=== PATIENT | male | born 1960 | race Caucasian/White ===

== ENCOUNTER → 2019-10-30 08:16 | Outpatient (CLI) | payer OTHER, SELFPAY ==
--- NOTE | ~2019-10-30 | MMUS_ITS ---
EXAMINATION: MM diagnostic mammo unilat RT, US breast RT complete HISTORY: Right breast lump, pain TECHNIQUE: Digital MLO and cc views of right breast in comparison MLO view of left breast. CAD analys is was submitted and interpreted. High resolution right breast ultrasound was performed. COMPARISON: None BREAST PARENCHYMAL COMPOSITION: There are scattered areas of fibroglandular density. FINDINGS: MAMMOGRAPHIC FINDINGS: There is minimal left gynecomastia and mild right gynecomastia. No suspicious mass, architectural dis tortion, malignant calcification, skin thickening or retraction of either breast is evident. Benign-a ppearing lymph nodes are noted bilaterally. ULTRASOUND: There is no evidence of focal abnormal solid or cystic lesion or abnormal shadowing of the right [address]. There is mild subareolar fibroglandular tissue. IMPRESSION: 1. Bilateral gynecomastia 2. No mammographic evidence of malignancy Reviewed, dictated and finalized at location A. IMPRESSION: 1. Bilateral gynecomastia 2. No mammographic evidence of malignancy
== END ==
PROVIDERS: PCP Physician Assistant Medical; Visit Provider Physician Assistant Medical
DX: N64.4 Mastodynia (principal)
CPT/HCPCS: 76641; 77065

== ENCOUNTER 2019-11-07 03:09 | Outpatient (CLI) | payer OTHER, SELFPAY ==
[2019-11-07 20:04] LABS: SARS-CoV-2 RNA PCR Negative
== END 2019-11-07 03:10 | disposition home or self-care (01) ==
LOC: ANHCOVIDDT 03:09
PROVIDERS: PCP Physician Assistant Medical; Visit Provider Internal Medicine Cardiovascular Disease
DX: Z01.812 Encounter for preprocedural laboratory examination (principal); Z20.828 Contact with and (suspected) exposure to other viral communicable diseases
CPT/HCPCS: 87635; C9803; U0003

== ENCOUNTER 2019-11-09 06:54 | Outpatient (CLI) | payer OTHER, SELFPAY ==
[2019-11-08 14:49] VITALS: BMI 39.4
--- NOTE | 2019-11-09 07:03 | ECG_ITS ---
Measurements Intervals [place] Rate: 54 P: [place]: 0 QRS: -14 QRSD: 119 T: -11 QT: 445 QTc: 425 Interpretive Statements ATRIAL FIBRILLATION WITH SLOW VENTRICULAR RESPONSE INTRAVENTRICULAR CONDUCTION DELAY BORDERLINE ST-T WAVE ABNORMALITY- ANTEROLAT/INF LEADS ABNORMAL ECG Electronically Signed On 11-09-2019 7:46:22 CDT by Arnie Thomson D.O.
--- NOTE | 2019-11-09 07:20 | SUR.PREOP ---
ARRIVES TO [facility] W/ AT SIDE FOR SCHEDULED CV W/ DR. RICHARD. A&0X4, STEADY GAIT, DENIES PAIN OR SOB. ORIENTED TO ROOM, PLAN OF CARE, PROCEDURE. QUESTIONS ANSWERED. PRE PROCEDURE EKG SHOWS AFIB 50'S. IV STARTED, LABS SENT, VS OBTAINED, SKIN PREPPED, CONSENT SIGNED. WILL CONTINUE TO MONITOR.
[2019-11-09 07:45] VITALS: BP 148/107; PULSE 59; RESP 14; TEMP 36.1; O2SAT 98
[2019-11-09 07:48] LABS: Anion Gap 5 mmol/L (8-16); Blood Urea Nitrogen 15 mg/dL (9-20); Calcium 9.1 mg/dL (8.4-10.2); Carbon Dioxide 29 mmol/L (22-30); Chloride 106 mmol/L (98-107); Estimated CRCL calculation 112 ml/min; Estimated Glomerular Filt Rate > 60; Glucose 157 mg/dL (75-110); Magnesium 1.9 mg/dL (1.6-2.3); Potassium 4.5 mmol/L (3.4-5.0); Sodium 140 mmol/L (137-145)
--- NOTE | 2019-11-09 08:35 | SUR.PREOP ---
DR. RICHARD HERE FOR CV. PT. IS READY IN BED AND LABS ARE RESULTED. DR. RICHARD VIEWED OFFICE NOTE, CONSENT AND PRE PROCEDURE EKG. UPON REVIEW OF EKG, DR. RICHARD NOTES EKG CHANGES PRESENT. MONITOR IS UPPER 40'S TO LOW 50'S AFIB. DECISION MADE BY DR. RICHARD TO CANCEL CARDIOVERSION TODAY; PT. NEEDS TO HAVE CARDIAC CATH FIRST.
--- NOTE | 2019-11-09 08:45 | SUR.PREOP ---
DR. RICHARD TO BEDSIDE TO SPEAK W/ PT AND HIS RE: EKG FINDINGS AND NEED TO HAVE CARDIAC CATH DONE TO EVALUATE HEART PRIOR TO HAVING CARDIOVERSION DONE AND THAT CARDIOVERSION IS CANCELLED TODAY. PT. AND VOICE UNDERSTANDING. DR. RICHARD ALSO DISCUSSED MED CHANGES HE WANTS MADE RE: LOW AFIB HR. DR. RICHARD MADE CALL TO OFFICE TO GET PT. SCHEDULED FOR CARDIAC CATH .
--- NOTE | 2019-11-09 09:03 | PM.PNCARD ---
Subjective Date/time seen: 11/09/19 09:03 Patient presents here for cardioversion of atrial fibrillation. On review of his EKG shows he has anterior ischemia. his heart rate 50 beats per minute. given that he has dyspnea on exertion and ischemia on the EKG we will arrange for cardiac catheterization prior to cardioversion. Objective Data Vital Signs Vital Signs: Vital Signs - 24 hr 11/09/19 07:45 Temperature 36.1 C L Pulse Rate 59 L Respiratory Rate 14 Blood Pressure 148/107 H Pulse Oximetry 98 Meds/Results Medications: Active Medications Generic Name Dose Route Start Last Admin Trade Name Freq PRN Reason Stop Dose Admin Sodium Chloride 1,000 mls @ 30 mls/hr 11/09/19 07:00 Normal Saline Iv IV CONT .Q24H MAGDALENO Labs Labs: Laboratory Results - last 24 hr 11/09/19 07:29 Sodium 140 Potassium 4.5 Chloride 106 Carbon Dioxide 29 Anion Gap 5 L BUN 15 Creatinine 0.80 Estim Creat Clear Calc 112 Estimated GFR > 60 Glucose 157 H Calcium 9.1 Magnesium 1.9
--- NOTE | 2019-11-09 09:04 | WPDHPUPDATE1 ---
History and Physical Update Update Date/Time: 11/09/19 09:04 History and Physical has been reviewed, including an updated exam of the patient. There are NO changes in the patient's condition. Risks, benefits, and alternatives have been discussed and questions answered. Patient agrees to proceed with procedure.
--- NOTE | 2019-11-09 09:05 | SUR.PREOP ---
IV SITE DISCONTINUED AND PT. DRESSING FOR DISCHARGE HOME.
--- NOTE | 2019-11-09 09:10 | SUR.PREOP ---
CALL RECEIVED FROM NURSE LAUREN RN AT [facility]. APPOINTMENT TIME AND DATE FOR CARDIAC CATH W/ DR. RICHARD RECEIVED.
--- NOTE | 2019-11-09 09:30 | SUR.PREOP ---
REVIEWED DISCHARGE INSTRUCTIONS W/ PT AND . INSTRUCTED ON NEW DATE AND TIME FOR COVID TEST, CARDIAC CATH, PREPARATION FOR TESTS AND NEW MED ORDERS. QUESTIONS ANSWERED, AND VOICED UNDERSTANDING OF ALL. DISCHARGED HOME AT 0934, AMBULATORY, WITH ALL PERSONAL BELONGINGS AND DISCHARGE PACKET. VOICES NO C/O. NO DISTRESS NOTED.
== END 2019-11-09 09:34 | disposition home or self-care (01) ==
LOC: ANHCARD 06:55 → ANHCPCTRAN 07:43 → ANHCATHLAB 07:44
PROVIDERS: PCP Physician Assistant Medical; Visit Provider Internal Medicine Cardiovascular Disease
PROC: 5A2204Z Restoration of Cardiac Rhythm, Single (ICD-10-PCS; principal; 2019-11-09 08:30)
DX: Z01.810 Encounter for preprocedural cardiovascular examination (principal); I45.9 Conduction disorder, unspecified
CPT/HCPCS: 36415; 80048; 83735; 93005; 99213; G0463; J2250; J3010; J7030; J7040

== ENCOUNTER 2019-11-14 01:36 | Outpatient (CLI) | payer OTHER, SELFPAY ==
[2019-11-14 19:24] LABS: SARS-CoV-2 RNA PCR Negative
== END 2019-11-14 01:37 | disposition home or self-care (01) ==
LOC: ANHCOVIDDT 01:36
PROVIDERS: PCP Physician Assistant Medical; Visit Provider Internal Medicine Cardiovascular Disease
DX: Z01.812 Encounter for preprocedural laboratory examination (principal); Z20.828 Contact with and (suspected) exposure to other viral communicable diseases
CPT/HCPCS: 87635; C9803; U0003

== ENCOUNTER 2019-11-16 05:17 | Day surgery (SDC) | payer OTHER, SELFPAY ==
[2019-11-16] VITALS (21 sets, daily range): BP systolic 115–152; BP diastolic 73–106; PULSE 56–77; RESP 12–22; TEMP 36.3–36.6; O2SAT 92–100; BMI 39.3
--- NOTE | 2019-11-16 07:00 | SUR.PREOP ---
ARRIVES TO [facility] W/ AT SIDE FOR SCHEDULED LHC W/ DR. RICHARD. STEADY GAIT, ALERT AND ORIENTED X 4. DENIES PAIN OR SOB ON ARRIVAL. ORIENTED TO ROOM, PLAN OF CARE, PROCEDURE. QUESTIONS ANSWERED. IV STARTED, LABS SENT, VS OBTAINED, CONSENT SIGNED, SKIN PREP COMPLETED, PULSES MARKED. STATES LAST DOSE OF XARELTO WAS TAKEN WEDNESDAY, 2019. MONITOR AFIB. WILL MONITOR.
[2019-11-16 07:24] LABS: Basophils Percent Auto 0.6 % (0.2-1.2); Eosinophils Absolute Auto 0.3 K/mm3 (0-0.3); Eosinophils Percent Auto 4.1 % (0-4.4); Hematocrit 47.5 % (42.0-52.0); Hemoglobin 15.4 g/dL (14.0-18.0); Immature Granulocyte Absolute 0.03 K/mm3 (0.00-0.031); Immature Granulocyte Percent A 0.4 % (0-0.5); Lymphocytes Absolute Auto 1.95 K/mm3 (0.9-3.2); Lymphocytes Percent Auto 28.4 % (18.3-44.2); Mean Corpuscular HGB Conc 32.4 g/dl (32-36); Mean Corpuscular Hemoglobin 30.7 pg (26-34); Mean Corpuscular Volume 94.6 fl (80-100); Mean Platelet Volume 9.5 fl (7.4-10.4); Monocytes Absolute Auto 0.6 K/mm3 (0.1-0.6); Monocytes Percent Auto 9.3 % (2.6-8.5); Neutrophils Absolute Auto 3.9 K/mm3 (1.3-6.7); Neutrophils Percent Auto 57.2 % (45.5-73.1); Platelet Count Result 167 k/mm3 (150-375); Red Blood Count 5.02 M/mm3 (4.6-6.20); Red Cell Distribution Width 14.3 % (11.5-14.5); White Blood Count 6.9 K/mm3 (4.5-10.0)
[2019-11-16 07:34] LABS: INR 0.9; Prothrombin Time 12.3 Seconds (11.1-14.7)
[2019-11-16 07:36] LABS: Anion Gap 6 mmol/L (8-16); Blood Urea Nitrogen 16 mg/dL (9-20); Calcium 8.8 mg/dL (8.4-10.2); Carbon Dioxide 29 mmol/L (22-30); Chloride 107 mmol/L (98-107); Estimated Glomerular Filt Rate > 60; Glucose 147 mg/dL (75-110); Potassium 4.4 mmol/L (3.4-5.0); Sodium 142 mmol/L (137-145)
--- NOTE | 2019-11-16 08:38 | WPDMODSED ---
Moderate Sedation Note-Pt Data Patient Data Allergies Allergy/AdvReac Type Severity Reaction Status Date / Time cat dander Allergy Unknown Unknown Verified 11/16/19 07:37 No Known Drug Allergies Allergy Unknown unknown Verified 11/16/19 07:37 Home Medications Medication Instructions Recorded Confirmed Type rivaroxaban 20 mg tablet 20 mg PO DAILY 02/02/19 11/16/19 History rosuvastatin 20 mg sprinkle capsule 20 mg PO DAILY 02/02/19 11/16/19 History esomeprazole magnesium 40 mg 40 mg PO DAILY #90 cap 04/03/19 11/16/19 Rx capsule,delayed release duloxetine 30 mg capsule,delayed 30 mg PO DAILY #30 cap 10/18/19 11/16/19 Rx release sildenafil 100 mg tablet 100 mg PO DAILY PRN 10/18/19 11/16/19 History clopidogrel 75 mg PO DAILY 11/08/19 11/16/19 History perindopril erbumine 4 mg PO DAILY 11/08/19 11/16/19 History amiodarone 200 mg PO DAILY #30 tablet 11/09/19 11/16/19 Rx metoprolol tartrate 12.5 mg PO Q12H #30 tablet 11/09/19 11/16/19 Rx Current Medications: Active Medications Sodium Chloride (Normal Saline Iv) 500 mls @ 100 mls/hr IV CONT .Q5H MAGDALENO Sedation/Anesthesia: No previous sedation/anesthesia problems (including family history). [facility] Past Medical History Medical History Afib Arthritis Bleeding nose CAD (coronary artery disease) 3 X 16 Taxus Liberte to mid LAD 2007 Current use of skilled nursing anticoagulation Gastric reflux High cholesterol Hypertension Left hip impingement syndrome Sleep apnea Vertigo Vision abnormalities Surgical History Surgical History H/O dilation of urethra H/O knee surgery Patella fracture. Small piece removed H/O umbilical hernia repair X2 History of cystoscopy 2019 S/P right rotator cuff repair 1978 Family History Family History Father Hypertension Family history of heart disease in male family member before age 55 Grandparent Family history of lung cancer Mother Cancer Cerebrovascular accident Social History Social History Smoking status: Never smoker Alcohol intake: current Substance use: never Additional living arrangements comments: Spouse Spiritual care concerns: No Agree to blood products: Yes Mod Sed Physical Exam Physical Exam Pre Procedural Exam: Normal: Appearance, Eyes, Ears, Nose, Neck, Throat, Airway, Lungs, Heart Size, Heart Rate, Heart Rhythm, Neuro Exam, Abdomen, Liver, Kidneys, Spleen, Breasts, Genitalia, Extremities and Skin Hours since solid foods: 8 Hours since liquid intake: 8 Internal Medicine - PN: Obj Da Vital Signs Vital Signs: Vital Signs - 24 hr 11/16/19 07:20 Temperature 36.3 C L Pulse Rate 65 Respiratory Rate 22 H Blood Pressure 152/99 H Pulse Oximetry 98 Meds/Results Medications: Active Medications Generic Name Dose Route Start Last Admin Trade Name Freq PRN Reason Stop Dose Admin Sodium Chloride 500 mls @ 100 mls/hr 11/16/19 06:00 Normal Saline Iv IV CONT .Q5H MAGDALENO Labs CBC & Chem 7: 11/16/19 07:18 11/16/19 07:18 Labs: Laboratory Results - last 24 hr 11/16/19 11/16/19 11/16/19 07:18 07:18 07:18 WBC 6.9 RBC 5.02 Hgb 15.4 Hct 47.5 MCV 94.6 MCH 30.7 MCHC 32.4 RDW 14.3 Plt Count 167 MPV 9.5 Immature Gran % (Auto) 0.4 Neut % (Auto) 57.2 Lymph % (Auto) 28.4 [place] % (Auto) 9.3 H Eos % (Auto) 4.1 Baso % (Auto) 0.6 Lymph # (Auto) 1.95 [place] # (Auto) 0.6 Eos # (Auto) 0.3 Baso # (Auto) 0.0 Abs Immat Gran (auto) 0.03 Absolute Neuts (auto) 3.9 Absolute Nucleated RBC 0.0 Nucleated RBC % 0.0 PT 12.3 INR 0.9 Sodium 142 Potassium 4.4 Chloride 107 Carbon Dioxide 29 Anion Gap 6 L BUN 16 Creatinine 0.70 Estim Creat Clear C
--- NOTE | 2019-11-16 08:38 | WPDHPUPDATE1 ---
History and Physical Update Update Date/Time: 11/16/19 08:38 History and Physical has been reviewed, including an updated exam of the patient. There are NO changes in the patient's condition. Risks, benefits, and alternatives have been discussed and questions answered. Patient agrees to proceed with procedure.
--- NOTE | 2019-11-16 08:38 | WPDCARDPROC ---
Cardiac Cath Procedure Note Date of procedure:: 11/16/19 Performing physician:: Christina Velasquez MD date of service 11/16/2019 Procedure Procedure performed:: 1-Moderate sedation that started at and ended at using 7 mg of Versed and 150mcg fentanyl. The registered nurse was maryse finley. 2-Selective left and right coronary angiogram. 3-Left heart catheterization with measurement of LVEDP and measurement of gradient across aortic valve. 3- LV angiogram was done as well. 4-IFR of mid LAD InStent restenosis. 5- Deployment of drug-eluting stent 3 x 18 Xience inside the old stent and proximal to. Under 14 atmospheres for 25 seconds. The stent balloon was used to post dilate the overlap segment and the 14 MERRY for 15 seconds. 6-Right common femoral arterial angiogram. 7-Deployment of 6 Sudan[place] Angio-Seal. Sedation/Medication given:: Moderate sedation. Access site:: Right common femoral artery. Estimated blood loss:: 10cc Procedure note:: After informed consent patient was brought in to manufacturing laborer with the was draped and prepped in usual manner. Moderate sedation was given and the right groin was infiltrated using 1% lidocaine. Five Sudanese sheath was obtained using micropuncture needle and the modified Seldinger technique. Selective left coronary angiogram was done using JL4 catheter with the tip of the catheter placed in the left main coronary artery. Selective right coronary angiogram was done using JR4 catheter with the tip of the catheter placed to the right coronary artery. After that 5 Sudanese pigtail catheter was advanced across the aortic valve into the left ventricle with measurement of LVEDP and measurement of gradient across aortic valve. Right common femoral arterial angiogram was done. LV angiogram was done as well. after that exchanged the 5 Sudanese sheath to 6 Sudanese sheath over a wire. The guide catheter that we used to engage the LAD was JL5. Other guides used without success were CLS 3.5, CLS 4 and JL 4. after that the pressure wire was zeroed outside the body and then advanced to outside of the guide catheter and normalization of pressures done. Then the wire was advanced to the distal LAD a measurement of IFR was done.. Subsequently we took a balloon 3 x 15 to measure the length of the stent. And then deployment and direct stenting using 3 x 18 Xience stent. The stent balloon was used to post dilate the overlap segment under 14 atmospheres for 15 seconds Findings:: 1- left coronary artery is a large artery that divides into large LAD, large circumflex artery. Left main is Free of disease. 2- left anterior descending artery is a large artery that runs and wraps around the apex. There is a stent at the junction of the mid to the distal segment and at the proximal and mid segment of the stent and proximal to the stent there is about 60-70% stenosis. Large diagonal branch with minimal irregularities. 3- leftcircumflex artery is a large artery Minimal irregularities. Distally large obtuse marginal that looks unremarkable. 4- right coronary artery is Large artery and dominant with minimal irregularities. 5- LVEDP was 15 mm Hg and no gradient across aortic valve. 5- LV angiogram shows normal ejection fraction 65%. 6- opening arterial pressure was 130/80and closing pressure was 120/80. 7- right femoral artery angiogram shows no significant disease in the right common femoral artery. 8- IFR of LAD was 0.88 and 1 reading was 0.9. Given the abnormal EKG that shows ischemia and given the borderline readings onIFR we decided to stent the LAD. Conclusion:: Successful stenting of InStent restenosis of the LAD into the [place] LAD proximally. Assessment and Plan Additional Plan 1- Continue aspirin and Plavix. 2- continue Xarelto. 3- after 1 month from now we will attempt cardioversion. 4- Aggressive risk factor modification for CAD.
--- NOTE | 2019-11-16 09:55 | ECG_ITS ---
Measurements Intervals [place] Rate: 60 P: [place]: 0 QRS: -21 QRSD: 138 T: 10 QT: 454 QTc: 457 Interpretive Statements ATRIAL FIBRILLATION INTRAVENTRICULAR CONDUCTION DELAY ST-T WAVE ABNORMALITY IN ANTERIOR LEADS- CONSIDER ISCHEMIA BASELINE ARTIFACT- II, III ABNORMAL ECG Electronically Signed On 11-16-2019 10:37:54 CDT by Arnie Thomson D.O.
--- NOTE | 2019-11-16 11:09 | SUR.PHASEII ---
1100-pt moved to PCS charting.
[2019-11-16] MEDS: ROSUVASTATIN 10 MG TABLET 20 MG PO (20:20)
[2019-11-16] MEDS: PANTOPRAZOLE 40 MG TABLET PO (20:20)
[2019-11-16] MEDS: METOPROLOL TARTRATE 12.5 MG TABLET PO (20:20)
[2019-11-16] MEDS: DULoxetine HCL 30 MG CAPSULE.DR PO (20:21)
[2019-11-17] VITALS (10 sets, daily range): BP systolic 145–146; BP diastolic 84–109; PULSE 59–83; RESP 16–18; TEMP 36.4–37.3; O2SAT 97–99
[2019-11-17 05:27] LABS: Anion Gap 7 mmol/L (8-16); Blood Urea Nitrogen 11 mg/dL (9-20); Calcium 8.7 mg/dL (8.4-10.2); Carbon Dioxide 31 mmol/L (22-30); Chloride 101 mmol/L (98-107); Estimated CRCL calculation 112 ml/min; Estimated Glomerular Filt Rate > 60; Glucose 144 mg/dL (75-110); Potassium 4.2 mmol/L (3.4-5.0); Sodium 139 mmol/L (137-145)
[2019-11-17] MEDS: AMIODARONE HCL 200 MG TABLET PO (10:03)
[2019-11-17] MEDS: METOPROLOL TARTRATE 12.5 MG TABLET PO (10:03)
[2019-11-17] MEDS: CLOPIDOGREL BISULFATE 75 MG TABLET PO (10:04)
[2019-11-17] MEDS: lisinopriL 10 MG TABLET PO (10:04)
--- NOTE | 2019-11-17 11:05 | PM.DS ---
DS: Admitting Diagnosis Admitting Diagnosis Admitting Diagnosis: Abnormal EKG DS: Discharge Diagnosis Discharge Diagnosis (1) CAD (coronary artery disease): Code(s): I25.10 - Atherosclerotic heart disease of [place] coronary artery without angina pectoris Status: Acute Assessment and Plan: Cardiac catheterization 11/16/2019: 1- left coronary artery is a large artery that divides into large LAD, large circumflex artery. Left main is Free of disease. 2- left anterior descending artery is a large artery that runs and wraps around the apex. There is a stent at the junction of the mid to the distal segment and at the proximal and mid segment of the stent and proximal to the stent there is about 60-70% stenosis. Large diagonal branch with minimal irregularities. 3- left circumflex artery is a large artery Minimal irregularities. Distally large obtuse marginal that looks unremarkable. 4- right coronary artery is Large artery and dominant with minimal irregularities. 5- LVEDP was 15 mm Hg and no gradient across aortic valve. 5- LV angiogram shows normal ejection fraction 65%. 6- opening arterial pressure was 130/80and closing pressure was 120/80. 7- right femoral artery angiogram shows no significant disease in the right common femoral artery. 8- IFR of LAD was 0.88 and 1 reading was 0.9. Given the abnormal EKG that shows ischemia and given the borderline readings onIFR we decided to stent the LAD. Proceeded on to successful stenting of InStent restenosis of the LAD into the [place] LAD proximally. No chest discomfort or shortness of breath. overnight. Right groin site without swelling or bleeding. No femoral bruit. Distal pulses intact. DS: Summary Hospital Course Reason for hospitalization: Abnormal EKG for cardiac catheterization Hospital Course: 59-year-old gentleman that was seen for cardioversion 11/09/2019. Preprocedure EKG revealed ischemia in the anterior leads. He was scheduled for cardiac catheterization which was performed by Dr Velasquez on 11/16/2019. He had in stent stenosis of the previously placed LAD stent. See cardiac catheterization report above. He was monitored overnight. He had no complaints of chest discomfort or shortness of breath. He states he feels amazingly better. Right groin site was without swelling or bleeding. No femoral bruit. Distal pulses intact. There were no arrhythmias on the monitor. He will be continued on aspirin 81 mg for at least 1 month in addition to clopidogrel 75 mg daily. Xarelto will restart on Wednesday and he is scheduled for cardioversion on December 21, [address] Velasquez. He was discharged home in stable and pain-free condition. Status at Discharge Functional status at discharge: independent ambulation Overall status at discharge: patient is back to baseline Time Spent with Patient Time attestation: Total time spent providing and/or coordinating discharge services: 20 minutes in the room to discuss medications, diet, activity, restarting anticoagulation with Xarelto, scheduling for cardioversion in 1 month after restarting Xarelto and answering any questions. 10 minutes to do discharge order. 10 minutes to do discharge summary. Total time spent on discharge: 40 minutes. Time spent: Greater than 30 minutes Exam Const: General: cooperative, comfortable, no acute distress, alert and awake Nutritional Appearance: obese Orientation/consciousness: patient oriented x3 Limitations: no limitations HENMT: Ears: hearing grossly normal bilaterally General nose exam: Normal nares present Mouth: Yes moist mucous membranes Eyes: General: appearance normal, both eyes and all related structures Neck: Neck: full ROM and no JVD Resp: Effort & Inspection: normal respiratory effort and able to speak in complete sentences Auscultation: clear to auscultation bilaterally Cardio: Rate: re
[2019-11-17] MEDS: ASPIRIN 81 MG ENTERIC TABLET PO (11:52)
== END 2019-11-17 12:55 | disposition home or self-care (01) ==
LOC: ANHCATHLAB 08:35 → ANHCPC 11:02 → ANHIMU 19:14
PROVIDERS: PCP Family Medicine; Visit Provider Internal Medicine Cardiovascular Disease
PROC: 4A023N7 Measurement of Cardiac Sampling and Pressure, Left Heart, Percutaneous Approach (ICD-10-PCS; CPT 93452; principal; 2019-11-16 08:30)
PROC: 4A033BC Measurement of Arterial Pressure, Coronary, Percutaneous Approach (ICD-10-PCS; CPT 93571; 2019-11-16 08:30)
DX: I25.118 Atherosclerotic heart disease of native coronary artery with other forms of angina pectoris (principal); T82.855A Stenosis of coronary artery stent, initial encounter; R94.31 Abnormal electrocardiogram [ECG] [EKG]; I73.9 Peripheral vascular disease, unspecified; I10 Essential (primary) hypertension; I48.0 Paroxysmal atrial fibrillation; R06.09 Other forms of dyspnea; I25.2 Old myocardial infarction; G47.33 Obstructive sleep apnea (adult) (pediatric); K21.9 Gastro-esophageal reflux disease without esophagitis; F12.90 Cannabis use, unspecified, uncomplicated; E78.2 Mixed hyperlipidemia; Z95.5 Presence of coronary angioplasty implant and graft; Z99.89 Dependence on other enabling machines and devices; Z79.01 Long term (current) use of anticoagulants; Z79.02 Long term (current) use of antithrombotics/antiplatelets; Y83.8 Other surgical procedures as the cause of abnormal reaction of the patient, or of later complication, without mention of misadventure at the time of the procedure
CPT/HCPCS: 36415; 80048; 83735; 85025; 85610; 87635; 93005; 93458; 93571; 99213; A9270; C1725; C1760; C1769; C1874; C1887; C1894; C9600; C9803; G0269; G0463; J0583; J1644; J2250; J3010; J7030; J7040; U0003

== ENCOUNTER 2019-12-12 08:26 | Outpatient (CLI) | payer OTHER, SELFPAY ==
[2019-12-12 08:50] LABS: Uric Acid 4.6 mg/dL (3.5-8.5)
== END 2019-12-12 08:27 | disposition home or self-care (01) ==
PROVIDERS: PCP Family Medicine; Visit Provider Physician Assistant Medical
DX: M10.00 Idiopathic gout, unspecified site (principal)
CPT/HCPCS: 36415; 84550

== ENCOUNTER 2019-12-19 01:20 | Outpatient (CLI) | payer OTHER, SELFPAY ==
[2019-12-19 20:51] LABS: SARS-CoV-2 RNA PCR Negative
== END 2019-12-19 01:21 | disposition home or self-care (01) ==
LOC: ANHCOVIDDT 01:21
PROVIDERS: PCP Family Medicine; Visit Provider Internal Medicine Cardiovascular Disease
DX: Z01.812 Encounter for preprocedural laboratory examination (principal); Z20.828 Contact with and (suspected) exposure to other viral communicable diseases
CPT/HCPCS: 87635; C9803; U0003

== ENCOUNTER 2019-12-21 05:18 | Day surgery (SDC) | payer OTHER, SELFPAY ==
[2019-12-21] VITALS (12 sets, daily range): BP systolic 121–142; BP diastolic 89–100; PULSE 55–74; RESP 14–25; TEMP 36.1; O2SAT 96–100
--- NOTE | 2019-12-21 07:00 | ECG_ITS ---
Measurements Intervals [place] Rate: 64 P: [place]: 0 QRS: -24 QRSD: 125 T: -9 QT: 399 QTc: 413 Interpretive Statements ATRIAL FIBRILLATION INTRAVENTRICULAR CONDUCTION DELAY BORDERLINE ST-T WAVE ABNORMALITY- ANT/INF LEADS BASELINE ARTIFACT- I, II, AVR ABNORMAL ECG Electronically Signed On 12-21-2019 7:12:00 PUBLICATION DESIGNER by Arnie Thomson D.O.
[2019-12-21 07:34] LABS: Anion Gap 6 mmol/L (8-16); Blood Urea Nitrogen 19 mg/dL (9-20); Calcium 8.7 mg/dL (8.4-10.2); Carbon Dioxide 29 mmol/L (22-30); Chloride 105 mmol/L (98-107); Estimated Glomerular Filt Rate > 60; Glucose 168 mg/dL (75-110); Potassium 4.4 mmol/L (3.4-5.0); Sodium 140 mmol/L (137-145)
--- NOTE | 2019-12-21 07:34 | SUR.PREOP ---
0700-PT PRESENTS TO THE [facility] FOR A CV. NO DISTRESS NOTED. EKG PERFORMED AND FOUND TO BE IN A-FIB. PIV STARTED AND LABS OBTAINED AND SENT PER ORDER. QUESTIONS ANSWERED AND VERBALIZED UNDERSTANDING. CONSENT OBTAINED. WILL CONTINUE TO MONITOR.
--- NOTE | 2019-12-21 08:49 | WPDHPUPDATE1 ---
History and Physical Update Update Date/Time: 12/21/19 08:49 Subjective: Remains in atrial fibrillation No chest pain or shortness breath Objective: Irregular irregular rhythm Assessment: Atrial fibrillation plan:Elective cardioversion History and Physical has been reviewed, including an updated exam of the patient. There are NO changes in the patient's condition. Risks, benefits, and alternatives have been discussed and questions answered. Patient agrees to proceed with procedure.
--- NOTE | 2019-12-21 08:51 | WPDMODSED ---
Moderate Sedation Note-Pt Data Patient Data Diagnosis: Atrial fibrillation Present Complaint: atrial fibrillation Procedure to be performed/Plan: elective cardioversion Moderate sedation Allergies Allergy/AdvReac Type Severity Reaction Status Date / Time cat dander Allergy Unknown Unknown Verified 11/20/19 08:24 No Known Drug Allergies Allergy Unknown unknown Verified 11/20/19 08:24 Home Medications Medication Instructions Recorded Confirmed Type rivaroxaban 20 mg tablet 20 mg PO DAILY 02/02/19 12/20/19 History rosuvastatin 20 mg sprinkle capsule 20 mg PO DAILY 02/02/19 12/20/19 History esomeprazole magnesium 40 mg 40 mg PO DAILY #90 cap 04/03/19 12/20/19 Rx capsule,delayed release clopidogrel 75 mg PO DAILY 11/08/19 12/20/19 History perindopril erbumine 4 mg PO DAILY 11/08/19 12/20/19 History amiodarone 200 mg PO DAILY #30 tablet 11/09/19 12/20/19 Rx metoprolol tartrate 12.5 mg PO Q12H #30 tablet 11/09/19 12/20/19 Rx aspirin 81 mg PO QAM #30 tablet 11/17/19 12/20/19 Rx nitroglycerin 0.4 mg SUBLINGUAL DIRECTED PRN 11/17/19 12/20/19 Rx #25 tablet duloxetine 60 mg capsule,delayed 60 mg PO DAILY #90 cap 11/20/19 12/20/19 Rx release Current Medications: Active Medications Sodium Chloride (Normal Saline Iv) 1,000 mls @ 30 mls/hr IV CONT .Q24H MAGDALENO Sedation/Anesthesia: No previous sedation/anesthesia problems (including family history). [facility] Past Medical History Medical History Afib Arthritis Bleeding nose BMI 39.0-39.9,adult CAD (coronary artery disease) 3 X 16 Taxus Liberte to mid LAD 2007 Current use of fdc anticoagulation Gastric reflux High cholesterol Hypertension Left hip impingement syndrome Sleep apnea Vertigo Vision abnormalities Surgical History Surgical History H/O dilation of urethra H/O knee surgery Patella fracture. Small piece removed H/O umbilical hernia repair X2 History of cystoscopy 2019 S/P right rotator cuff repair 1979 Family History Family History Father Hypertension Family history of heart disease in male family member before age 55 Grandparent Family history of lung cancer Mother Cancer Cerebrovascular accident Social History Social History Smoking status: Never smoker Alcohol intake: current Drinks per week: 2 Substance use: never Substance use type: does not use Additional living arrangements comments: Spouse Gender identity (if verbalized by the patient): Male Spiritual care concerns: No Agree to blood products: Yes Mod Sed Physical Exam Physical Exam Pre Procedural Exam: Normal: Appearance, Eyes, Ears, Nose, Neck, Throat, Airway, Lungs, Heart Size, Heart Rate, Neuro Exam, Extremities and Skin and Variation: Heart Rhythm ( irregular irregular) Hours since solid foods: 12 Hours since liquid intake: 12 Internal Medicine - PN: Obj Da Vital Signs Vital Signs: Vital Signs - 24 hr 12/21/19 07:30 12/21/19 08:45 12/21/19 08:50 Temperature 36.1 C L Pulse Rate 67 74 67 Respiratory Rate 15 25 H 16 Blood Pressure 121/92 H 142/91 H 134/97 H Pulse Oximetry 98 100 99 Meds/Results Medications: Active Medications Generic Name Dose Route Start Last Admin Trade Name Freq PRN Reason Stop Dose Admin Sodium Chloride 1,000 mls @ 30 mls/hr 12/21/19 06:00 Normal Saline Iv IV CONT .Q24H MAGDALENO Labs CBC & Chem 7: 12/21/19 07:17 12/21/19 07:17 Labs: Laboratory Results - last 24 hr 12/21/19 07:17 Sodium 140 Potassium 4.4 Chloride 105 Carbon Dioxide 29 Anion Gap 6 L BUN 19 Creatinine 0.80 Estim Creat Clear Calc Not Reportable Estimated GFR > 60 Glucose 168 H Calcium 8.7 Magnesium 2.0 ASA Classification/Sedation ASA Cl
--- NOTE | 2019-12-21 09:12 | WPDCARDVER ---
Cardioversion Cardioversion Date of procedure: 12/21/19 Procedure: 1. Electrical cardioversion 2. Moderate sedation Pre-op diagnosis: atrial fibrillation Post-op diagnosis: same Indications: atrial fibrillation Description of procedure: after discussing the risks, benefits alternatives of the procedure patient agreeable via verbal and written informed consent. Risks discussed included shocking into more problematic heart rhythm, stroke, need for surgery, , skin irritation or burn. Telemetry monitoring was established, pulse oxygenation was established and serial blood pressure assessments were taken. The previously placed anterior and posterior defibrillator pads were utilized after adequate sedation in the attempts of trying to restore sinus rhythm. Procedure start time 8:54 a.m. Procedure stop time 9:09 a.m. Medications were administered and patient was monitored by Marin Glez RN Complications: None Blood loss: None Medications given a total 4 mg of Versed and 50 mg of fentanyl given in divided dosages Three attempts to restore sinus rhythm were made. Each using 200 joules of synchronized biphasic energy. This was unsuccessful at restoring sinus rhythm. Sedation: As above Findings: as above Conclusion: 1. Unsuccessful attempts at restoring sinus rhythm x3 using 200 joules of synchronized biphasic energy each time. 2. Moderate sedation Plan will be to continue his current drug regimen without change. He will follow up with Dr. Velasquez for further adjustments and recommendation
--- NOTE | 2019-12-21 12:07 | SUR.PHASEII ---
1100-pt given d/c orders and instructions. Questions answered and verbalized understanding. AOx4. PIV removed intact. Taken via wheelchair to waiting vehicle. No evidence of distress noted or verbalized at time of departure.
== END 2019-12-21 11:00 | disposition home or self-care (01) ==
PROVIDERS: PCP Family Medicine; Visit Provider Internal Medicine Cardiovascular Disease
PROC: 5A2204Z Restoration of Cardiac Rhythm, Single (ICD-10-PCS; principal; 2019-12-21 08:30)
DX: I48.91 Unspecified atrial fibrillation (principal); I25.10 Atherosclerotic heart disease of native coronary artery without angina pectoris; I10 Essential (primary) hypertension; E78.00 Pure hypercholesterolemia, unspecified; G47.30 Sleep apnea, unspecified; K21.9 Gastro-esophageal reflux disease without esophagitis; Z95.5 Presence of coronary angioplasty implant and graft; Z79.01 Long term (current) use of anticoagulants; Z79.02 Long term (current) use of antithrombotics/antiplatelets; Z79.82 Long term (current) use of aspirin
CPT/HCPCS: 36415; 80048; 83735; 92960; 93005; J2250; J3010; J7040

== ENCOUNTER 2020-02-29 11:13 | Outpatient (CLI) | payer OTHER, SELFPAY | END 2020-02-29 11:14 | disposition home or self-care (01) | PROVIDERS: PCP Family Medicine; Visit Provider Nurse Practitioner Family | DX: M25.571 Pain in right ankle and joints of right foot (principal) | CPT/HCPCS: 36415; 84550 ==

== ENCOUNTER 2020-04-16 22:03 | Emergency (ER) | payer OTHER, SELFPAY ==
--- NOTE | ~2020-04-16 | CT_ITS ---
EXAMINATION: CT abdomen pelvis w con DATE: 04/16/2020 23:55 INDICATION: Groin hematoma. TECHNIQUE: Computed tomography (CT) of the abdomen and pelvis was performed with 100 mL Omnipaque 350 intravenous contrast. Automated exposure control and iterative reconstruction technique were employe d. The dose-length product was 1596.37 mGy-cm. COMPARISON: CT abdomen and pelvis 09/27/2018 FINDINGS: The visualized portions of the lung bases demonstrates a 4 mm nodule in right lower lobe an d a 3 mm nodule in left lower lobe without change, consistent with granulomatous disease. No pleural effusion. There is left atrial enlargement of the heart. There are coronary artery calcifications. No pericardial effusion. The liver, gallbladder, spleen, pancreas, adrenal glands, and kidneys are norm al. There are no dilated loops of bowel. The appendix is normal. There are bilateral inguinal hernias containing fat. There is a small volume of hematoma in the inguinal regions bilaterally, left worse than right. There are no pathologically enlarged lymph nodes. There is no free intraperitoneal fluid. There is an umbilical hernia containing fat. There is mild thoracolumbar spondylosis. There is mild chronic height loss of multiple thoracic vertebral bodies. IMPRESSION: 1. Small volume of hematoma in the inguinal regions bilaterally, left worse than right. No retroperit rose hematoma. 2. Bilateral inguinal hernias and umbilical hernia containing fat. Reviewed, dictated and finalized at location A. AND GAS EXPLORATION TECHNICIAN IMPRESSION: 1. Small volume of hematoma in the inguinal regions bilaterally, left worse gibson n right. No retroperitoneal hematoma. 2. Bilateral inguinal hernias and umbilical hernia containing fat.
--- NOTE | ~2020-04-16 | XR_ITS ---
EXAMINATION: XR chest 1V portable INDICATION: Shortness of breath TECHNIQUE: Portable AP chest at 2244 hours COMPARISON: 06/13/2018 FINDINGS: Cardiomegaly is noted. The lungs are free of acute opacities. There is no pleural effusion or pneumothorax. IMPRESSION: 1. Cardiomegaly. Reviewed, dictated and finalized at location A. TITY MANAGEMENT DEVELOPER IMPRESSION: 1. Cardiomegaly.
--- NOTE | ~2020-04-16 | CT_ITS ---
EXAMINATION: CT brain wo con INDICATION: Dizziness COMPARISON: None TECHNIQUE: Standard unenhanced head CT. The dose-length product (DLP) was 605.33 mGy-cm. The mA was a djusted according to patient size. Iterative reconstruction technique was employed. FINDINGS: There is no intracranial hemorrhage, acute infarction, or abnormal mass lesion. The ventric les are normal. There is no abnormal mass effect or midline shift. The galeano-white matter differentiat ion is normal. The basal cisterns are patent. The orbits are normal. There is partial opacification o f the left maxillary sinus as well as the ethmoidal air cells. The left mastoid air cells are hypopla stic. IMPRESSION: 1. No acute intracranial abnormality. Reviewed, dictated and finalized at location A. TORCH BRAZIER
[2020-04-16 22:07] VITALS: BP 158/95; PULSE 118; RESP 18; TEMP 37.1; O2SAT 99
--- NOTE | 2020-04-16 22:13 | ECG_ITS ---
Measurements Intervals [place] Rate: 107 P: MA: 0 QRS: -26 QRSD: 136 T: 67 QT: 354 QTc: 473 Interpretive Statements ATRIAL FIBRILLATION WITH RAPID VENTRICULAR RESPONSE INTRAVENTRICULAR CONDUCTION DELAY ST-T WAVE ABNORMALITY IN ANTERIOR LEADS- CONSIDER ISCHEMIA ABNORMAL ECG Electronically Signed On 04-17-2020 7:03:02 COTTON FARMER by Arnie Thomson D.O.
--- NOTE | 2020-04-16 22:22 | ED.GENADULT ---
HPI - General Adult General Chief complaint: Urogenital-Male <Sailaja Willingham MD - Last Filed: 04/22/20 07:18> Stated complaint: chest pain <Sailaja Willingham MD - Last Filed: 04/22/20 07:18> Time Seen by Provider: 04/16/20 22:12 <Sailaja Willingham MD - Last Filed: 04/22/20 07:18> Source: patient and family <Sailaja Willingham MD - Last Filed: 04/22/20 07:18> History of Present Illness HPI narrative: Patient is a 60 y/o male complaining of moderate SOB since yesterday. There is no alleviating or exacerbating factor. He also feels dizzy and sweaty. He has some bruise in both groin area and scrotal area. He had ablation recently for A fib at [facility]. <Sailaja Willingham MD - Last Filed: 04/22/20 07:18> Related Data Home medications: Home Medications Medication Instructions Recorded Confirmed rivaroxaban 20 mg tablet 20 mg PO DAILY 02/02/19 02/20/20 <Sailaja Willingham MD - Last Filed: 04/22/20 07:18> Allergies/adverse reactions: Allergies Allergy/AdvReac Type Severity Reaction Status Date / Time cat dander Allergy Unknown Unknown Verified 02/29/20 10:10 No Known Drug Allergies Allergy Unknown unknown Verified 02/29/20 10:10 <Sailaja Willingham MD - Last Filed: 04/22/20 07:18> Review of Systems Constitutional: Constitutional: Denies chills, Denies fever(s), Denies headache(s) and Denies weakness <Sailaja Willingham MD - Last Filed: 04/22/20 07:18> Eyes: Eyes: Denies blurry vision <Sailaja Willingham MD - Last Filed: 04/22/20 07:18> ENT: Denies headache(s) and Denies neck pain <Sailaja Willingham MD - Last Filed: 04/22/20 07:18> Cardiovascular: Cardiovascular: Denies chest pain and Reports dyspnea <Sailaja Willingham MD - Last Filed: 04/22/20 07:18> Respiratory: Respiratory: Denies cough and Reports dyspnea <Sailaja Willingham MD - Last Filed: 04/22/20 07:18> Gastrointestinal: Gastrointestinal: Denies abdominal pain, Denies diarrhea, Denies nausea and Denies vomiting <Sailaja Willingham MD - Last Filed: 04/22/20 07:18> Genitourinary: Genitourinary: Denies hematuria and Denies dysuria <Sailaja Willingham MD - Last Filed: 04/22/20 07:18> Musculoskeletal: Musculoskeletal: Denies back pain and Denies neck pain <Sailaja Willingham MD - Last Filed: 04/22/20 07:18> Integumentary/Breasts: Skin/Breast: Reports other (bruise both groin, scrotum and left side) <Sailaja Willingham MD - Last Filed: 04/22/20 07:18> Neurologic: Denies headache(s) and Denies weakness <Sailaja Willingham MD - Last Filed: 04/22/20 07:18> PMF Past Medical History Medical History: Medical History Afib Arthritis Bleeding nose BMI 39.0-39.9,adult CAD (coronary artery disease) 3 X 16 Taxus Liberte to mid LAD 2008 Current use of correction anticoagulation Gastric reflux High cholesterol Hypertension Left hip impingement syndrome Morbid obesity Sleep apnea Vertigo Vision abnormalities <Sailaja Willingham MD - Last Filed: 04/22/20 07:18> Surgical History Surgical History: Surgical History H/O dilation of urethra H/O knee surgery Patella fracture. Small piece removed H/O umbilical hernia repair X2 History of cystoscopy 2019 S/P right rotator cuff repair 1978 <Sailaja Willingham MD - Last Filed: 04/22/20 07:18> Family History Family History: Family History Father Hypertension Family history of heart disease in male family member before age 55 Grandparent Family history of lung cancer Mother Cancer Cerebrovascular accident <Sailaja Willingham MD - Last Filed: 04/22/20 07:18> Social History Social History: Social History Smoking status: Never smoker Alcohol intake: current Drinks per week: 2 Substance use: never Substance use type: does not use Additional living arrangements comments:
[2020-04-16 22:27] LABS: Basophils Absolute Auto 0.1 K/mm3 (0.0-0.1); Basophils Percent Auto 0.3 % (0.2-1.2); Eosinophils Absolute Auto 0.1 K/mm3 (0-0.3); Eosinophils Percent Auto 0.5 % (0-4.4); Hematocrit 43.2 % (42.0-52.0); Hemoglobin 13.9 g/dL (14.0-18.0); Immature Granulocyte Absolute 0.12 K/mm3 (0.00-0.031); Immature Granulocyte Percent A 0.8 % (0-0.5); Lymphocytes Absolute Auto 2.65 K/mm3 (0.9-3.2); Lymphocytes Percent Auto 17.5 % (18.3-44.2); Mean Corpuscular HGB Conc 32.2 g/dl (32-36); Mean Corpuscular Hemoglobin 30.2 pg (26-34); Mean Corpuscular Volume 93.7 fl (80-100); Mean Platelet Volume 9.6 fl (7.4-10.4); Monocytes Absolute Auto 2.4 K/mm3 (0.1-0.6); Monocytes Percent Auto 15.8 % (2.6-8.5); Neutrophils Absolute Auto 9.9 K/mm3 (1.3-6.7); Neutrophils Percent Auto 65.1 % (45.5-73.1); Platelet Count Result 318 k/mm3 (150-375); Red Blood Count 4.61 M/mm3 (4.6-6.20); Red Cell Distribution Width 13.6 % (11.5-14.5); White Blood Count 15.2 K/mm3 (4.5-10.0)
[2020-04-16 22:35] LABS: Prothrombin Time 22.9 Seconds (11.1-14.7)
[2020-04-16 22:36] LABS: Partial Thromboplastin Time 36.4 SECONDS (22.3-36.8)
[2020-04-16 22:38] LABS: Alanine Aminotransferase 22 U/L (4-50); Albumin Level 4.5 g/dL (3.5-5.1); Alkaline Phosphatase 59 U/L (38-126); Anion Gap 9 mmol/L (8-16); Aspartate Amino Transferase 34 U/L (17-59); Bilirubin,Total 1.5 mg/dL (0.2-1.3); Blood Urea Nitrogen 17 mg/dL (9-20); Calcium 9.3 mg/dL (8.4-10.2); Carbon Dioxide 26 mmol/L (22-30); Chloride 102 mmol/L (98-107); Estimated CRCL calculation 75 ml/min; Estimated Glomerular Filt Rate > 60; Glucose 239 mg/dL (75-110); Potassium 4.6 mmol/L (3.4-5.0); Sodium 137 mmol/L (137-145)
[2020-04-16 22:47] LABS: NT Pro B Type Natriuretic Pept 1330 PG/ML (5-100)
[2020-04-16 22:50] LABS: Troponin I 0.018 ng/mL (0.000-0.034)
--- NOTE | 2020-04-16 23:13 | PC.NURSE ---
Patient reports nausea/vomiting and increased pain, EDP Maulik notified. Per EDP Maulik via verbal order read-back, give 4mg Zofran IVP and 2mg Morphine IVP.
[2020-04-16] MEDS: MORPHINE SULFATE (*CRX) 2 MG/ML INJ IV PUSH (23:21)
[2020-04-16] MEDS: ONDANSETRON INJ 4 MG/2 ML VIAL IV PUSH (23:21)
[2020-04-16 23:25] VITALS: PULSE 100; RESP 17; O2SAT 95
[2020-04-16 23:31] VITALS: BP 142/91; PULSE 102; RESP 23; O2SAT 93
[2020-04-16 23:51] VITALS: TEMP 37.1
[2020-04-16 23:56] VITALS: PULSE 104; RESP 19; O2SAT 96
[2020-04-16 23:57] VITALS: BP 141/87; PULSE 88; RESP 24; O2SAT 97
[2020-04-17] VITALS (32 sets, daily range): BP systolic 103–151; BP diastolic 63–92; PULSE 83–107; RESP 14–29; TEMP 36.4–36.7; O2SAT 91–100
--- NOTE | 2020-04-17 01:10 | PM.IMCN ---
Assessment and Plan Assessment and plan (1) Bilateral groin pain: Code(s): R10.31 - Right lower quadrant pain; R10.32 - Left lower quadrant pain Status: Acute Assessment and Plan: The patient clearly has a postop complication from his recent cardiac ablation. I recommend the patient be transferred to [facility] where he can be evaluated for his groin pain which appears to be secondary to a groin hematoma. The patient may need this to be drained. The patient is in agreement to be transferred to [facility]. I have discussed same with ER physician, Dr. Funez who will transfer him. (2) Scrotal edema: Code(s): N50.89 - Other specified disorders of the male genital organs Status: Acute Assessment and Plan: Recommend scrotal ultrasound. (3) Atrial fibrillation with rapid ventricular response: Code(s): I48.91 - Unspecified atrial fibrillation Status: Acute Assessment and Plan: Currently the patient is relatively rate controlled with heart rates in the hi 90s, low 100s. Continue Xarelto and amiodarone. Consider rate controlling medications if necessary overnight. (4) Leukocytosis: Qualifiers: Leukocytosis type: unspecified Qualified Code(s): D72.829 - Elevated white blood cell count, unspecified Code(s): D72.829 - Elevated white blood cell count, unspecified Status: Acute Assessment and Plan: Likely secondary to recent procedure. Monitor CBCd. (5) Shortness of breath: Code(s): R06.02 - Shortness of breath Status: Acute Assessment and Plan: May be secondary to a pulmonary embolism as the patient was briefly taken off of his Xarelto and did lay in a bed for two days. Recommend ruling out pulmonary embolism. Severe shortness of breath is likely secondary to groin pain and discomfort. Additional Plan Continue rest of home medications for chronic illnesses. Thank you for consulting us to see this patient [facility]. Date of service was 04/17/3020 at 00:30 hrs. HPI Data of Consult Consult date: 04/17/20 Primary Care Provider: Lui Vazquez MD Consult Narrative Narrative: This is a 60 year old male with known CAD+ s/p stent placement, atrial fibrillation on chronic Xarelto therapy, and hyperlipidemia who presented to the hospital [facility] with a complaint of worsening shortness of breath with associated diaphoresis since yesterday. The patient just had a cardiac ablation done this past Wednesday at [facility] and since he has been discharged he has had severe bilateral groin pain and testicular discomfort. He was taken off of his Xarelto for only one day prior to the procedure. He spent his first two days in bed with severe pain. His groin pain has not improved and he rates it as 8/10 in intensity. He states that he can't get into any position that is comfortable for him. He reports that the ablation was a failure and that he never converted to a sinus rhythm. Tonight in the ER the patient was evaluated and found to be in rapid atrial fibrillation. ER provider consulted Cardiology, Dr. Morgan. The patient denies any fevers, chills, cough, chest pain, palpitations, nausea, vomiting, diarrhea, hematuria, dysuria, or rectal bleeding. Currently he denies any shortness of breath but is complaining of severe groin discomfort. Review of Systems Review of Systems: All systems reviewed & are unremarkable except as noted in HPI and below PMFSH Past Medical History Medical History Afib Arthritis Bleeding nose BMI 39.0-39.9,adult CAD (coronary artery disease) 3 X 16 Taxus Liberte to mid LAD 2007 Current use of shelter anticoagulation Gastric reflux High cholesterol Hypertension Left hip impingement syndrome Morbid obesity Sleep apnea Vertigo Vision abnormalities Surgical History Surgical History (Reviewed 04/17/20 @ 05:55 by Neville
--- NOTE | 2020-04-17 02:26 | PC.NURSE ---
Spoke to Cindi at [facility] transfer center to give update on patient's status. Awaiting for bed at [facility] at this time.
[2020-04-17 03:44] LABS: Troponin I 0.014 ng/mL (0.000-0.034)
[2020-04-17] MEDS: HYDROcodone/acetaminophen (*CRX) 7.5-325 MG TABLET 1 TAB PO (03:52)
--- NOTE | 2020-04-17 04:34 | PC.NURSE ---
Called [facility] at 03:42 to requests a transfer of a patient to [facility]. Given 20 min. ETA Called [facility] for an updated ETA at 04:33; 05:15 was given
[2020-04-17 05:19] LABS: Troponin I 0.016 ng/mL (0.000-0.034)
--- NOTE | 2020-04-17 05:46 | PC.NURSE ---
Called [facility] for another updated ETA at 05:44; dispatcher said that we were next in line and that he had two units at another ER that he'd dispatch to us for the transfer. He did not give an updated ETA aside from the above.
== END 2020-04-17 06:28 | disposition short-term general hospital (02) ==
PROVIDERS: Emergency Provider Emergency Medicine; PCP Family Medicine
DX: L76.32 Postprocedural hematoma of skin and subcutaneous tissue following other procedure (principal); I48.91 Unspecified atrial fibrillation; Z79.01 Long term (current) use of anticoagulants; N50.89 Other specified disorders of the male genital organs; D72.829 Elevated white blood cell count, unspecified; R06.02 Shortness of breath; M19.90 Unspecified osteoarthritis, unspecified site; I25.10 Atherosclerotic heart disease of native coronary artery without angina pectoris; K21.9 Gastro-esophageal reflux disease without esophagitis; I10 Essential (primary) hypertension; G47.30 Sleep apnea, unspecified; E66.01 Morbid (severe) obesity due to excess calories; Z68.38 Body mass index [BMI] 38.0-38.9, adult; Z95.5 Presence of coronary angioplasty implant and graft; E78.5 Hyperlipidemia, unspecified; K40.20 Bilateral inguinal hernia, without obstruction or gangrene, not specified as recurrent; K42.9 Umbilical hernia without obstruction or gangrene; I45.9 Conduction disorder, unspecified; R94.31 Abnormal electrocardiogram [ECG] [EKG]
CPT/HCPCS: 36415; 70450; 71045; 74177; 80053; 83880; 84484; 85025; 85610; 85730; 93005; 96374; 96375; 99285; A9270; J2270; J2405; Q9967

== ENCOUNTER 2020-05-03 14:34 | Outpatient (CLI) | payer OTHER, SELFPAY | END 2020-05-03 14:35 | disposition home or self-care (01) | LOC: ANHCOVIDVC 14:34 | PROVIDERS: PCP Family Medicine | DX: Z23 Encounter for immunization (principal) | CPT/HCPCS: 0001A; 91300 ==

== ENCOUNTER 2020-05-24 14:27 | Outpatient (CLI) | payer OTHER, SELFPAY | END 2020-05-24 14:28 | disposition home or self-care (01) | LOC: ANHCOVIDVC 14:27 | PROVIDERS: PCP Family Medicine | DX: Z23 Encounter for immunization (principal) | CPT/HCPCS: 0002A; 91300 ==

== ENCOUNTER → 2021-07-07 13:09 | Outpatient (CLI) | payer OTHER, SELFPAY ==
--- NOTE | ~2021-07-07 | US_ITS ---
US scrotum doppler INDICATION: Right testicular pain and swelling TECHNIQUE: Testicular sonogram utilizing grayscale and color Doppler FINDINGS: The testes are normal in size and appearance. No focal lesions are seen. The right testes measures 5.1 x 2.3 x 3.8 cm centimeters, and the left testis measures 4.3 x 2.4 x 2.6 cm cm. There is normal vascular flow to both testes. There small bilateral epididymal cysts measuring up to 3 mm. There is no varicocele or hydrocele. IMPRESSION: 1. Small bilateral epididymal cysts. Reviewed, dictated and finalized at location A.
== END ==
PROVIDERS: PCP Family Medicine; Visit Provider Physician Assistant Medical
DX: N50.811 Right testicular pain (principal); R10.31 Right lower quadrant pain; N50.3 Cyst of epididymis
CPT/HCPCS: 76870; 93976

== ENCOUNTER → 2021-07-23 11:10 | Outpatient (CLI) | payer OTHER, SELFPAY ==
--- NOTE | ~2021-07-23 | CT_ITS ---
EXAMINATION: CT pelvis wo con DATE: 07/23/2021 11:30 INDICATION: R10.31 - Right lower quadrant pain TECHNIQUE: Computed tomography (CT) of the pelvis was performed without intravenous contrast. Automat ed exposure control and iterative reconstruction technique were employed. The dose-length product was 686.64 mGy-cm. COMPARISON: CT abdomen pelvis 04/16/2020. FINDINGS: Kidneys: Incompletely visualized. No mass, stone, or hydronephrosis. GI tract: No small or large bowel dilation. Normal appendix. Diverticulosis without diverticulitis. Mesentery/Peritoneum: No ascites, mass, or free air. Retroperitoneum: No mass. Mild atherosclerotic calcifications. No aneurysm. Pelvis: Pelvic organs are within normal limits. Soft Tissues: Fat-containing umbilical and bilateral inguinal hernias, soft tissues tissues and body wall otherwise unremarkable. Bones: No acute osseous finding. IMPRESSION: No acute pelvic process detected. Chronic/incidental findings detailed above. Reviewed, dictated and finalized at location K.
== END ==
PROVIDERS: PCP Surgery; Visit Provider Surgery
DX: R10.31 Right lower quadrant pain (principal)
CPT/HCPCS: 72192

== ENCOUNTER 2021-09-25 10:15 | Outpatient (CLI) | payer OTHER, SELFPAY ==
--- NOTE | 2021-09-25 10:25 | ECG_ITS ---
Measurements Intervals [place] Rate: 58 P: -27 IA: 183 QRS: -26 QRSD: 123 T: 0 QT: 387 QTc: 383 Interpretive Statements SINUS BRADYCARDIA BORDERLINE LEFT AXIS DEVIATION [QRS AXIS < -20] MODERATE INTRAVENTRICULAR CONDUCTION DELAY [110+ ms QRS DURATION] NONSPECIFIC ST & T-WAVE ABNORMALITY COMPARED TO ECG 04/16/2020 22:16:20 SINUS BRADYCARDIA NOW PRESENT Electronically Signed On 09-25-2021 18:29:47 CDT by Romy Varma M.D.
[2021-09-25 12:29] LABS: Anion Gap 9 mmol/L (8-16); Blood Urea Nitrogen 15 mg/dL (9-20); Calcium 9.1 mg/dL (8.4-10.2); Carbon Dioxide 26 mmol/L (22-30); Chloride 101 mmol/L (98-107); Estimated Glomerular Filt Rate > 60; Glucose 226 mg/dL (65-110); Sodium 136 mmol/L (137-145)
== END 2021-09-25 10:16 | disposition home or self-care (01) ==
LOC: ANHSURGERY 10:19
PROVIDERS: Anesthesiology; PCP Family Medicine; Visit Provider Surgery
DX: K40.90 Unilateral inguinal hernia, without obstruction or gangrene, not specified as recurrent (principal); E11.9 Type 2 diabetes mellitus without complications; Z01.818 Encounter for other preprocedural examination; I45.9 Conduction disorder, unspecified
CPT/HCPCS: 36415; 80048; 86850; 86900; 86901; 93005

== ENCOUNTER 2021-09-30 01:56 | Day surgery (SDC) | payer OTHER, SELFPAY ==
--- NOTE | 2021-09-24 16:16 | SUR.PREOP ---
Report to the Outpatient Waiting Room, entrance under the green pavilion located off [facility], at time 0800 on date 09/30/21. OR Time: 1000. - You and your visitor will be asked a series of questions to screen for COVID 19 for your protection. - Only one visitor is allowed at this time. - The patient visitor is requested to leave or wait in car when not with patient. - A mask is required within the hospital. Patients may have clear liquids (water, carbonated beverages, clear teas, apple juice) until 3 hours prior to surgery with a maximum of 20 ounces. - NO CLEAR LIQUIDS AFTER 0700 - No food from midnight until time of surgery - Infants may have breast milk until 4 hours before surgery, infant formula 6 hours prior to surgery. - Children will be allowed to drink immediately following surgery. If applicable, please bring a bottle or sippy cup to assist with drinking. Juice, water, soda, and popsicles are readily available. For infants on formula, please bring formula the day of surgery. Pacifiers are allowed. Take the following medications with a SIP of water the morning of surgery: DULOXETINE Medications to discontinue per physician STOP PLAVIX 5 DAYS PRIOR TO YOUR SURGERY (09/25/21), STOP XARELTO 2 DAYS PRIOR TO YOUR SURGERY (09/28/21) Please no make-up, nail greenlandic, hairspray, perfume, deodorant, or body powder the day of surgery. No jewelry (including any body piercings) or valuables the day of surgery, leave them at home. Please take a shower or bath the night before, or the morning of, surgery with an antibacterial soap. Wear comfortable, loose fitting clothing. Children are encouraged to wear pajamas. - Jewelry must be removed prior to entering the operating room. Rings and piercings that are not removed may be cut off. - The hospital will not accept responsibility for valuables. - Please leave all valuables, including medications, at home the day of surgery. If you are going home after surgery, a licensed belly dump driver must drive you home. - NO public transportation without another adult. - We recommend that an adult stay with you for 24 hours following discharge. - We also recommend that you do not drive, make important decision, drink alcoholic beverages, or take any drugs that were not prescribed by your health care provider for at least 24 hours after your discharge time. For Pediatric surgeries, we recommend two adults accompany the child home (only one inside the building at this time). Follow any additional instructions given to you from your surgeon. If you or anyone in your household have experienced Covid symptoms in the past week, please notify your surgeon or the nurse liaison at the phone number below for possible testing. Telephone instructions given to NYDIA TOLENTINO and asked if any additional questions and then verbalized understanding. Patient advised to call surgeon office or pre surgery nurse liaison [phone] if any additional questions.
[2021-09-24 16:27] VITALS: BMI 38.7
[2021-09-30] VITALS (10 sets, daily range): BP systolic 121–152; BP diastolic 80–100; PULSE 53–76; RESP 18–23; TEMP 36.3–36.9; O2SAT 94–100
[2021-09-30] MEDS: ACETAMINOPHEN 500 MG TABLET 1000 MG PO (08:29)
[2021-09-30] MEDS: LACTATED RINGERS 1,000 ML 30 ML IV CONT ×2 (08:30→12:38)
[2021-09-30] MEDS: KETOROLAC 15 MG/ML VIAL (*BKC) IV PUSH (08:41)
[2021-09-30 08:43] LABS: Glucose Point of Care 149 mg/dl (65-105)
--- NOTE | 2021-09-30 09:19 | PM.IMHP ---
H&P: HPI History of Present Illness Date/Time: 09/30/21 09:19 Chief Complaint: Bilateral inguinal hernia Narrative: This is a 61-year-old man who presents for bilateral inguinal hernia repair. He denies any changes since last seen in the office. Review of Systems Review of Systems: All systems reviewed & are unremarkable except as noted in HPI and below Constitutional: Constitutional: Denies chills, Denies fever(s), Denies headache(s) and Denies weight loss Eyes: Eyes: Denies change in vision ENT: Denies dizziness, Denies headache(s), Denies neck mass and Denies throat swelling Cardiovascular: Cardiovascular: Denies chest pain, Denies lightheadedness and Denies dyspnea Respiratory: Respiratory: Denies cough, Denies dyspnea and Denies wheezing Gastrointestinal: Gastrointestinal: Denies abdominal pain, Denies change in bowel habits, Denies nausea and Denies vomiting Genitourinary: Genitourinary: Denies hematuria and Denies dysuria Musculoskeletal: Musculoskeletal: Reports as per HPI Integumentary/Breasts: Skin/Breast: Reports as per HPI Neurologic: Denies dizziness and Denies headache(s) Allergic/Immunologic: Allergic/Immunologic: Denies throat swelling and Denies wheezing PMFSH Past Medical History Medical History Afib Arthritis Bleeding nose BMI 38.0-38.9,adult BMI 39.0-39.9,adult BMI greater than 40 CAD (coronary artery disease) 3 X 16 Taxus Liberte to mid LAD 2008 Current use of snf anticoagulation Gastric reflux Heart attack High cholesterol Hypertension Left hip impingement syndrome Morbid obesity Sleep apnea Vertigo Vision abnormalities Surgical History Surgical History H/O dilation of urethra H/O knee surgery Patella fracture. Small piece removed H/O umbilical hernia repair X2 History of cystoscopy 2019 S/P right rotator cuff repair 1978 Family History Family History Father Hypertension Family history of heart disease in male family member before age 55 Grandparent Family history of lung cancer Mother Cancer Cerebrovascular accident Social History Social History Smoking status: Never smoker Alcohol intake: current Drinks per week: 1 Alcohol use details: occasional Substance use: current Substance use type: marijuana Other substance usage details: USES MARIJUANA OCCASIONALLY Living arrangements: with family Additional living arrangements comments: Spouse Gender identity (if verbalized by the patient): Male Spiritual care concerns: No Agree to blood products: Yes Meds Home Medications and Allergies Home Medications Medication Instructions Recorded Confirmed Type sildenafil 100 mg tablet 100 mg PO DAILY PRN sexual 02/20/20 09/24/21 Rx activity #1 tablet esomeprazole magnesium 40 mg 40 mg PO DAILY #90 caps 03/29/20 09/30/21 Rx capsule,delayed release losartan 25 mg tablet 25 mg PO DAILY 03/26/21 09/30/21 History rivaroxaban 20 mg tablet 20 mg PO DAILY 03/26/21 09/30/21 History rosuvastatin 20 mg tablet 20 mg PO DAILY #90 tabs 04/11/21 09/30/21 Rx clopidogrel 75 mg tablet 75 mg PO DAILY #90 tabs 09/10/21 09/30/21 Rx duloxetine 60 mg capsule,delayed 60 mg PO DAILY 09/24/21 09/30/21 History release metformin 500 mg tablet,extended 500 mg PO DAILY 09/24/21 09/30/21 History release 24 hr Allergies Allergy/AdvReac Type Severity Reaction Status Date / Time cat dander Allergy Unknown Unknown Verified 09/24/21 16:26 Vital Signs Vital Signs - 24 hr 09/30/21 08:15 Temperature 36.3 C L Pulse Rate 59 L Respiratory Rate 20 Blood Pressure 150/89 H Pulse Oximetry 99 Oxygen Delivery Room Air Exam Const: General: no acute distress and alert Orientation/consciousness: patient oriented
--- NOTE | 2021-09-30 09:21 | WPDHPUPDATE1 ---
History and Physical Update Update Date/Time: 09/30/21 09:21 History and Physical has been reviewed, including an updated exam of the patient. There are NO changes in the patient's condition. Risks, benefits, and alternatives have been discussed and questions answered. Patient agrees to proceed with procedure.
[2021-09-30] MEDS: ceFAZolin 3 GM/D5W 100 ML 100 ML IVPB (09:59)
[2021-09-30] MEDS: BUPIVACAINE/EPINEPHRINE 0.25% 50 ML VIAL 30 ML INFILTRATE (11:07)
--- NOTE | 2021-09-30 12:22 | W.PM.PROC2 ---
Procedure Note - Detailed Date of Procedure 09/30/21 Pre-op Diagnosis bilateral inguinal hernia Post-op Diagnosis Same (Bilateral indirect inguinal hernia) Procedure Performed Laparoscopic bilateral inguinal hernia repair with mesh, da Hoda assisted Surgeon Alfred Ramírez DO Anesthesia General and Local (0.5% bupivacaine with epinephrine) Indications This is a 61-year-old man who presented with bilateral inguinal hernias. He was experiencing right groin pain for about the past year. He had a CT performed 1 year ago which showed bilateral inguinal hernias. The patient had to get cardiac clearance prior to proceeding with surgery. Now that he is clear for surgery discussions were made with the patient about treatment options and decision was made to proceed with robotic assisted laparoscopic bilateral inguinal hernia repair with mesh. Findings Laparoscopic bilateral inguinal hernia repair was performed. Upon entering the abdomen laparoscopically, the patient did have some omental adhesions up to his previous mesh repair in the umbilical region. The mesh appeared intact. The adhesions were taken down to allow visualization down into the pelvis. The patient was found to have bilateral indirect inguinal hernias. The right side was larger than the left. Robotic transabdominal preperitoneal approach was utilized for repair. Extra-large Bard 3DMax mid mesh was placed on each side overlying the entire myopectineal orifice. No specimens were obtained for pathology. Description of Procedure Procedure as well as risks, benefits, and alternatives were discussed with the patient. Written consent was obtained and placed in chart prior to procedure. Patient was brought back to surgical suite. He was placed supine on operating table. Time-out was done to confirm patient and procedure. He was then intubated by Anesthesia Department. His abdomen was prepped and draped in sterile fashion using chlorhexidine prep. 0.5% bupivacaine with epinephrine was infiltrated at each location for incision. A 12 millimeter transverse incision was made just superior to the umbilicus using a 15 blade scalpel. Blunt dissection was carried out down to the linea alba. A vertical incision was made at the linea alba using a 15 blade scalpel. The peritoneum was then bluntly entered. A 12 millimeter trocar was inserted and carbon dioxide insufflation was used to create a pneumoperitoneum. A camera was inserted and the abdominal cavity was inspected. The patient was placed in slight Trendelenburg position. An 8 millimeter incision was made on the right lateral abdomen and an 8 millimeter trocar was inserted under direct visualization. Another 8 millimeter incision was made in the left lateral abdomen and an 8 millimeter trocar was inserted under direct visualization. The robotic arms were brought up to the patient's bedside and secured to the ports. The camera and instruments were inserted. I then moved over to the robotic console and took control of the camera and instruments. After careful inspection of the abdominal cavity, I began scoring the peritoneum along the right lower quadrant using scissors with electrocautery. The preperitoneal plane was entered and this was carefully dissected caudally along the inferior epigastric vessels. Careful dissection with scissors with electrocautery and blunt dissection was used to continue this dissection. I dissected far enough laterally to allow for mesh placement, and also dissected medially to identify the pubic arch and Lloyd's ligament. The hernia sac was identified and carefully dissected posteriorly. The cord contents were also identified and the peritoneum was carefully dissected far enough posteriorly to allow for mesh placement. Once an adequate pocket was created, I then placed the mesh within the preperitoneal pocket and carefully unfolded it. The mesh was centered on the hernia defect with adequate overlap circumferentiall
[2021-09-30 12:52] LABS: Glucose Point of Care 171 mg/dl (65-105)
== END 2021-09-30 15:42 | disposition home or self-care (01) ==
PROVIDERS: PCP Family Medicine; Visit Provider Surgery
PROC: 8E0Y4CZ Robotic Assisted Procedure of Lower Extremity, Percutaneous Endoscopic Approach (ICD-10-PCS; CPT 49650; principal; 2021-09-30 10:00)
DX: K40.20 Bilateral inguinal hernia, without obstruction or gangrene, not specified as recurrent (principal); I48.91 Unspecified atrial fibrillation; I25.10 Atherosclerotic heart disease of native coronary artery without angina pectoris; I10 Essential (primary) hypertension; I25.2 Old myocardial infarction; E78.00 Pure hypercholesterolemia, unspecified; K21.9 Gastro-esophageal reflux disease without esophagitis; G47.30 Sleep apnea, unspecified; F12.90 Cannabis use, unspecified, uncomplicated; Z95.5 Presence of coronary angioplasty implant and graft; Z79.01 Long term (current) use of anticoagulants; Z79.02 Long term (current) use of antithrombotics/antiplatelets; Z79.84 Long term (current) use of oral hypoglycemic drugs
CPT/HCPCS: 49650; S2900; 36415; 80048; 82948; 86850; 86900; 86901; 93005; A9270; C1781; J0330; J0690; J1100; J1170; J1885; J2250; J2370; J2405; J2704; J3010; J7120

== ENCOUNTER → 2021-10-10 12:37 | Outpatient (CLI) | payer OTHER, SELFPAY ==
--- NOTE | ~2021-10-10 | US_ITS ---
US scrotum doppler INDICATION: Right testicular swelling and pain TECHNIQUE: Testicular sonogram utilizing grayscale and color Doppler FINDINGS: The testes are normal in size and appearance. No focal lesions are seen. The right testes measures 5.2 x 2.7 x 3.3 cm centimeters, and the left testis measures 4.1 x 2.5 x 3.2 cm cm. There is normal vascular flow to both testes. There are right epididymal cysts, largest measuring 3 mm. There is a small right hydrocele. IMPRESSION: 1. Small right hydrocele. 2: Right epididymal cysts. Reviewed, dictated and finalized at location A.
== END ==
PROVIDERS: PCP Family Medicine; Visit Provider Urology
DX: N45.1 Epididymitis (principal); N43.3 Hydrocele, unspecified; N50.3 Cyst of epididymis
CPT/HCPCS: 76870; 93976

== ENCOUNTER → 2021-11-13 10:02 | Outpatient (CLI) | payer OTHER, SELFPAY ==
--- NOTE | ~2021-11-13 | CT_ITS ---
EXAMINATION: CT pelvis wo con DATE: 11/13/2021 10:19 INDICATION: Right lower quadrant and inguinal pain. History of hernia repair. TECHNIQUE: Computed tomography (CT) of the was performed without intravenous contrast. The dose-lengt h product was 848.21 mGy-cm. Automated exposure control and iterative reconstruction technique were e mployed. COMPARISON: CT dated 07/23/2021 FINDINGS: There are surgical changes of previous anterior abdominal wall and inguinal hernia repair. There is a fat-containing umbilical hernia. Nonobstructive bowel gas pattern. Normal appendix. Bladde r is decompressed limiting evaluation for wall thickening. Nonobstructive bowel gas pattern. Colonic diverticulosis without evidence for diverticula. No free air or free fluid. Moderate osteoarthritis o f the hips. Mild lower lumbar spondylosis. IMPRESSION: 1. No acute abnormality of the pelvis. 2: Small fat-containing umbilical hernia. Reviewed, dictated and finalized at location B.
== END ==
PROVIDERS: PCP Family Medicine; Visit Provider Surgery
DX: R10.31 Right lower quadrant pain (principal); K42.9 Umbilical hernia without obstruction or gangrene
CPT/HCPCS: 72192

== ENCOUNTER 2021-12-09 13:52 | Outpatient (CLI) | payer OTHER, SELFPAY ==
--- NOTE | ~2021-12-09 | US_ITS ---
EXAMINATION: US scrotum doppler DATE: 12/09/2021 14:33 INDICATION: Other specified disorders of the male genital organs. Right scrotal lump. TECHNIQUE: Grayscale and Doppler ultrasound images of the testes were obtained. COMPARISON: Ultrasound 10/10/2021, pelvis CT 11/13/2021 FINDINGS: The right testis measures 5.4 x 3.7 x 2.5 cm. The left testis measures 3.9 x 3.3 x 2.2 cm. There is normal vascular flow to both testes. The right epididymis is normal with normal vascular cedric w. The left epididymis demonstrates a 4 mm cyst. There is no varicocele or hydrocele. IMPRESSION: 1. No etiology for the patient's symptoms. Reviewed, dictated and finalized at location A.
== END 2021-12-09 13:53 | disposition home or self-care (01) ==
PROVIDERS: PCP Family Medicine; Visit Provider Surgery
DX: N50.89 Other specified disorders of the male genital organs (principal)
CPT/HCPCS: 76870; 93976

== ENCOUNTER 2022-01-05 11:42 | Outpatient (CLI) | payer OTHER, SELFPAY ==
[2022-01-05 12:00] LABS: Hemoglobin 12.6 g/dL (14.0-18.0); Mean Corpuscular HGB Conc 31.5 g/dl (32-36); Mean Corpuscular Volume 88.9 fl (80-100); Mean Platelet Volume 9.6 fl (7.4-10.4); Platelet Count Result 184 k/mm3 (150-375); Red Cell Distribution Width 14.2 % (11.5-14.5); White Blood Count 6.9 K/mm3 (4.5-10.0)
[2022-01-05 12:12] LABS: Anion Gap 10 mmol/L (8-16); Blood Urea Nitrogen 17 mg/dL (9-20); Calcium 8.9 mg/dL (8.4-10.2); Carbon Dioxide 24 mmol/L (22-30); Chloride 104 mmol/L (98-107); Estimated Glomerular Filt Rate > 60; Glucose 111 mg/dL (65-110); Potassium 4.2 mmol/L (3.4-5.0); Sodium 138 mmol/L (137-145); Uric Acid 5.6 mg/dL (3.5-8.5)
== END 2022-01-05 11:43 | disposition home or self-care (01) ==
LOC: ANHLAB 11:44
PROVIDERS: PCP Family Medicine; Visit Provider Family Medicine
DX: I10 Essential (primary) hypertension (principal); M10.00 Idiopathic gout, unspecified site; Z12.5 Encounter for screening for malignant neoplasm of prostate
CPT/HCPCS: 36415; 80048; 84153; 84443; 84550; 85027; G0103

== ENCOUNTER 2022-02-03 12:41 | Outpatient (CLI) | payer OTHER, SELFPAY ==
--- NOTE | ~2022-02-03 | CT_ITS ---
CT Abdomen and Pelvis with contrast. History: Right groin pain, prior hernia repair. Spiral CT of the abdomen and pelvis was performed after the administration of intravenous contrast. 1 00 cc of Omnipaque 350 was administered intravenously without complication. Dose reduction technique was used on this scan by utilizing automated exposure control and iterative reconstruction technique. The dose-length product (DLP) was 1459.87 mGy-cm. COMPARISON: 11/13/2021 Findings: Scans through the lung bases demonstrate mild atelectatic change. The liver, spleen, pancreas, gallbladder, adrenals and kidneys are within normal limits. No evidence of aortic aneurysm. No lymphadenopathy is seen. There is no evidence of bowel obstruction. There is no evidence to suggest acute appendicitis or dive rticulitis. Small fat-containing umbilical hernia noted. Images through the pelvis were performed. Urinary bladder unremarkable. Prostate gland probably mildl y enlarged. Bilateral fat-containing inguinal hernias are present, right larger than left. No ascites is seen. Impression: Bilateral fat-containing inguinal hernias. Small fat-containing umbilical hernia. Reviewed, dictated and finalized at [facility]. CER APPRENTICE Impression: Bilateral fat-containing inguinal hernias. Small fat-containing umbilical hernia.
== END 2022-02-03 12:42 | disposition home or self-care (01) ==
PROVIDERS: PCP Family Medicine; Visit Provider Nurse Practitioner Family
DX: N50.89 Other specified disorders of the male genital organs (principal); K40.20 Bilateral inguinal hernia, without obstruction or gangrene, not specified as recurrent
CPT/HCPCS: 74177; Q9967

== ENCOUNTER 2023-04-19 07:30 | Outpatient (CLI) | payer MEDICARE, SELFPAY ==
[2023-04-19 08:05] LABS: Basophils Percent Auto 0.5 % (0.2-1.2); Eosinophils Absolute Auto 0.3 K/mm3 (0-0.3); Eosinophils Percent Auto 4.1 % (0-4.4); Hematocrit 44.4 % (42.0-52.0); Hemoglobin 13.5 g/dL (14.0-18.0); Immature Granulocyte Absolute 0.02 K/mm3 (0.00-0.031); Immature Granulocyte Percent A 0.3 % (0-0.5); Lymphocytes Absolute Auto 2.32 K/mm3 (0.9-3.2); Lymphocytes Percent Auto 30.6 % (18.3-44.2); Mean Corpuscular HGB Conc 30.4 g/dl (32-36); Mean Corpuscular Hemoglobin 27.5 pg (26-34); Mean Corpuscular Volume 90.4 fl (80-100); Mean Platelet Volume 9.5 fl (7.4-10.4); Monocytes Absolute Auto 0.7 K/mm3 (0.1-0.6); Monocytes Percent Auto 9.2 % (2.6-8.5); Neutrophils Absolute Auto 4.2 K/mm3 (1.3-6.7); Neutrophils Percent Auto 55.3 % (45.5-73.1); Platelet Count Result 198 k/mm3 (150-375); Red Blood Count 4.91 M/mm3 (4.6-6.20); Red Cell Distribution Width 15.3 % (11.5-14.5); White Blood Count 7.6 K/mm3 (4.5-10.0)
[2023-04-19 08:15] LABS: Alanine Aminotransferase 23 U/L (6-50); Albumin Level 4.4 g/dL (3.5-5.1); Alkaline Phosphatase 56 U/L (38-126); Anion Gap 6 mmol/L (8-16); Aspartate Amino Transferase 26 U/L (17-59); Bilirubin,Total 0.4 mg/dL (0.2-1.3); Blood Urea Nitrogen 18 mg/dL (9-20); Calcium 9.1 mg/dL (8.4-10.2); Carbon Dioxide 26 mmol/L (22-30); Chloride 108 mmol/L (98-107); Cholesterol 132 mg/dL (0-200); Estimated Glomerular Filt Rate > 60; Glucose 153 mg/dL (65-110); HDL Direct 44 mg/dL; Potassium 4.2 mmol/L (3.4-5.0); Sodium 140 mmol/L (137-145); Triglycerides 136 mg/dL (<150)
[2023-04-19 08:27] LABS: LDL Cholesterol Direct 65 mg/dL
[2023-04-19 08:45] LABS: Prostate Specific Antigen 3.5 ng/mL (< OR = 4.0)
== END 2023-04-19 07:31 | disposition home or self-care (01) ==
PROVIDERS: PCP Family Medicine; Visit Provider Physician Assistant
DX: E11.9 Type 2 diabetes mellitus without complications (principal); I10 Essential (primary) hypertension; Z12.5 Encounter for screening for malignant neoplasm of prostate
CPT/HCPCS: 36415; 80053; 80061; 84153; 84443; 85025; G0103

== ENCOUNTER 2023-04-22 13:04 | Outpatient (NON) | payer MEDICARE, SELFPAY ==
[2023-04-22 15:33] LABS: Creatinine Urine 126.9 mg/dL
[2023-04-22 15:37] LABS: MALB Creatinine Ratio 23.1 mg/g (0-30); Microalbumin Urine Random 29.3 mg/L (0-16.7)
== END 2023-04-22 13:05 | disposition home or self-care (01) ==
PROVIDERS: PCP Family Medicine; Visit Provider Family Medicine
DX: E11.9 Type 2 diabetes mellitus without complications (principal); I10 Essential (primary) hypertension
CPT/HCPCS: 82043

== ENCOUNTER 2023-09-28 09:44 | Outpatient (CLI) | payer MEDICARE, SELFPAY ==
[2023-09-28 11:21] LABS: Albumin Level 4.5 g/dL (3.5-5.1)
[2023-09-28 11:22] LABS: Basophils Percent Auto 0.4 % (0.2-1.2); Eosinophils Absolute Auto 0.2 K/mm3 (0-0.3); Eosinophils Percent Auto 2.6 % (0-4.4); Hematocrit 43.6 % (42.0-52.0); Hemoglobin 13.8 g/dL (14.0-18.0); Immature Granulocyte Absolute 0.02 K/mm3 (0.00-0.031); Immature Granulocyte Percent A 0.3 % (0-0.5); Lymphocytes Absolute Auto 2.12 K/mm3 (0.9-3.2); Lymphocytes Percent Auto 29.6 % (18.3-44.2); Mean Corpuscular HGB Conc 31.7 g/dl (32-36); Mean Corpuscular Hemoglobin 28.3 pg (26-34); Mean Corpuscular Volume 89.3 fl (80-100); Mean Platelet Volume 9.4 fl (7.4-10.4); Monocytes Absolute Auto 0.7 K/mm3 (0.1-0.6); Monocytes Percent Auto 9.8 % (2.6-8.5); Neutrophils Absolute Auto 4.1 K/mm3 (1.3-6.7); Neutrophils Percent Auto 57.3 % (45.5-73.1); Platelet Count Result 193 k/mm3 (150-375); Red Blood Count 4.88 M/mm3 (4.6-6.20); White Blood Count 7.2 K/mm3 (4.5-10.0)
[2023-09-28 11:27] LABS: Anion Gap 9 mmol/L (4-12); Blood Urea Nitrogen 15 mg/dL (9-20); Calcium 9.6 mg/dL (8.4-10.2); Carbon Dioxide 29 mmol/L (22-30); Chloride 104 mmol/L (98-107); Estimated Glomerular Filt Rate > 60; Glucose 113 mg/dL (65-110); Potassium 4.5 mmol/L (3.4-5.0); Sodium 142 mmol/L (137-145)
[2023-09-28 11:29] LABS: Urine Cotinine NEGATIVE
[2023-09-28 12:21] LABS: Hemoglobin A1C 7.3 % (<5.7)
[2023-09-28 13:06] LABS: MRSA (PCR) NOT DETECTED (NOT DETECTE)
== END 2023-09-28 09:45 | disposition home or self-care (01) ==
PROVIDERS: Anesthesiology; PCP Family Medicine; Visit Provider Orthopaedic Surgery
DX: M16.11 Unilateral primary osteoarthritis, right hip (principal); E11.9 Type 2 diabetes mellitus without complications; Z01.818 Encounter for other preprocedural examination
CPT/HCPCS: 36415; 80048; 80307; 82040; 83036; 85025; 86850; 86900; 86901; 87641

== ENCOUNTER 2023-10-05 13:00 | Outpatient (RCR) | payer MEDICARE, SELFPAY ==
--- NOTE | 2023-08-30 15:08 | PTOPEVAL1 ---
Assessment and note entered by Niyah Bowden, PT Evaluation Information Assessment Status Evaluation Diagnosis OA R hip ICD-10 Condition Codes (PT) Pain in right hip M25.551,Difficulty Walking R26.2 ,R26.9,Weakness R53.1 Onset 1 year Subjective Information chronic pain R hip, gradually worse; had injection in hips and steroid meds recently- helped for 13 days; xray severe OA R Hip; dr has told him he would need a THR. 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 dr has discussed THR with him; Assessment PT Clinical Summary Abhilash has the diagnosis of R hip pain/OA. The dr has discussed THR with him. He reports chronic pain in back, both hips and both knees. LE functional scale rating of 81% limitation in activity level. He uses a cane PRN. With the evaluation: he has weakness of R LE- uses arms to move R leg on/off mat, with supine SLR, lifts heel off mat ~ 1 x 2 reps with increase pain; 5 reps sit/stand time of 53 seconds and 2 minute walking test distance with cane 180'. Skilled PT services are indicated for therapeutic exercises on land or aquatic, to increase hip strength to prepare for surgery; modalities for pain control, with education for HEP and gait training. Plan of Care Interventions Aquatic Therapy,Gait Training,Hot Pack/Cold Pack, Manual Therapy,Neuro Re-education,Patient/ Caregiver Education,Therapeutic Activities, Therapeutic Exercise PT Services Indicated Y
--- NOTE | 2023-08-30 15:09 | OPREHPOC ---
Outpatient Therapy Plan of Care This is a Multidisciplinary Plan of Care that may contain components documented by all disciplines (PT, OT, and ST.) PT Problem 1 PT Problem #1 Knowledge Deficit PT Goal 1 Goal *indep with HEP Target Visit 8 PT Problem 2 PT Problem #2 Pain PT Goal 1 Goal 1* pain rating at worst of 6/10 2* LE functional scale rating of 70% limitation in activity Target Visit 8 PT Problem 3 PT Problem #3 Impaired Strength PT Goal 1 Goal increase strength of R hip, for support to OA joint and improve mobility 1* pt perform 20 reps of supine mat exercises 2* 2 minute walking test distance of 225' without break, using cane Target Visit 8
--- NOTE | 2023-10-05 14:02 | PTOPDC ---
Assessment and note entered by Niyah Bowden, PT Discharge Report Assessment Status Discharge Diagnosis OA R hip ICD-10 Condition Codes (PT) Pain in right hip M25.551,Difficulty Walking R26.2 ,R26.9,Weakness R53.1 Onset 1 year Subjective Information is going to have THR surgery tomorrow. Reported Pain Level Pain Score Self Report Additional Pain Score Comments pain has been staying around 7/10 all the time; more issues at the end of the day and with sleeping, awaken due to pain in hip 3-4 x/night; Assessment PT Clinical Summary Abhilash has received a total of 6 PT sessions. The goals were partially met. Discharge PT services. He is to have a THR tomorrow. Plan of Care PT Services Indicated No
== END 2023-10-05 14:23 | disposition home or self-care (01) ==
LOC: ANHPT 13:00
PROVIDERS: PCP Family Medicine; Visit Provider Orthopaedic Surgery
DX: M70.61 Trochanteric bursitis, right hip (principal); M16.11 Unilateral primary osteoarthritis, right hip
CPT/HCPCS: 97110; 97113; 97116; 97161; 97530

== ENCOUNTER 2023-10-06 01:26 | Day surgery (SDC) | payer MEDICARE, SELFPAY ==
[2023-09-28 09:54] VITALS: BMI 38.0
--- NOTE | 2023-09-28 10:40 | PC.NURSE ---
Report to the Outpatient Waiting Room, entrance under the green pavilion located off [facility], at time __6:00 AM on date ___10/06/23____. Planned Procedure Time: __7:30 AM . Time changes happen often and if your time is changed the preop area will call you the afternoon before. - You and your visitor will be asked to self-screen and do not enter if you have any COVID symptoms. - A mask is optional within the hospital at this time. Patients may have clear liquids (water, carbonated beverages, clear teas, apple juice) until 3 hours prior to surgery(4:30 AM) with a maximum of 20 ounces. - No food from midnight until time of surgery - Infants may have breast milk until 4 hours before surgery, infant formula 6 hours prior to surgery. - Children will be allowed to drink immediately following surgery. If applicable, please bring a bottle or sippy cup to assist with drinking. Juice, water, soda, and popsicles are readily available. For infants on formula, please bring formula the day of surgery. Pacifiers are allowed. Take the following medications with a SIP of water the morning of surgery: _NONE DO NOT STOP ANY OF YOUR OTHER PRESCRIPTION MEDICATIONS PRIOR TO SURGERY ?EXCEPT THE FOLLOWING Medications to discontinue per physician ___WIFE STATES HOLD XARELTO 2 DAYS PRE OP PER DR RICHARD.LAST DOSE 10/03/23 AND HOLD PLAVIX 7 DAYS PRE OP PER DR RICHARD LAST DOSE 09/28/23____HOLD ALL VITAMINS 3 DAYS PRE OP.LAST DOSE 10/02/23 Please no make-up, nail occitan, hairspray, perfume, deodorant, or body powder the day of surgery. No jewelry (including any body piercings) or valuables the day of surgery, leave them at home. Please take a shower or bath the night before, or the morning of, surgery with an antibacterial soap. Wear comfortable, loose fitting clothing. Children are encouraged to wear pajamas. - Jewelry must be removed prior to entering the operating room. Rings and piercings that are not removed may be cut off. - The hospital will not accept responsibility for valuables. - Please leave all valuables, including medications, at home the day of surgery. If you are going home after surgery, a licensed pharmacy delivery driver must drive you home. - NO public transportation without another adult if you receive anesthesia. - We recommend that an adult stay with you for 24 hours following discharge. - We also recommend that you do not drive, make important decision, drink alcoholic beverages, or take any drugs that were not prescribed by your health care provider for at least 24 hours after your discharge time. Follow any additional instructions given to you from your surgeon. If you or anyone in your household have experienced Covid symptoms in the past week, please notify your surgeon or the nurse liaison at the phone number below for possible testing. VERBAL AND WRITTEN instructions given to __PATIENT AND CLAUDIO and asked if any additional questions and then verbalized understanding. Patient advised to call surgeon office or pre surgery nurse liaison [phone] if any additional questions.
[2023-09-28 10:56] VITALS: BP 140/89; PULSE 58; RESP 18; TEMP 36.7; O2SAT 97
--- NOTE | 2023-10-05 07:54 | PM.IMHP ---
H&P: HPI History of Present Illness Date/Time: 10/05/23 07:54 Chief Complaint: Patient has osteoarthritis right hip. He has been unresponsive to conservative treatment today. He like to consider hip replacement surgery. 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 H/O dilation of urethra H/O knee surgery Patella fracture. Small piece removed H/O umbilical hernia repair X2 History of cystoscopy 2019 History of heart artery stent x2 History of radiofrequency ablation (RFA) procedure for cardiac arrhythmia S/P right rotator cuff repair 1978 Family History Family History Father Hypertension Family history of heart disease in male family member before age 55 COPD (chronic obstructive pulmonary disease) Pulmonary embolism Grandparent Family history of lung cancer Mother Cancer Cerebrovascular accident COPD (chronic obstructive pulmonary disease) Sibling Diabetes mellitus COPD (chronic obstructive pulmonary disease) Sibling Scoliosis Social History Social History Smoking status: Never smoker Second hand tobacco smoke exposure: Yes Additional smoking assessment comments: DENIES ANY FORM OF TOBACCO USE Alcohol intake: former Substance use: current Substance use type: marijuana Other substance usage details: 09/27/23 Do You Feel Safe in your Home?: Yes Lack of Transportation: No Lack of Food: Never True Current Housing: I Have Housing Concerned About Future Housing: No Difficulty Paying Gas/Electric Bills: No Difficulty Paying for Meds: No Currently Unemployed: No Education: High School Diploma/GED Difficulty w/ Childcare or Family Care: No Living arrangements: with family Additional living arrangements comments: Spouse Occupation/Education: retired 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 Gender identity (if verbalized by the patient): Male Spiritual care concerns: No Agree to blood products: Yes Meds Home Medications and Allergies Home Medications Medication Instructions Recorded Confirmed Type rivaroxaban 20 mg tablet 20 mg PO QPM 03/26/21 09/29/23 History metformin 500 mg tablet,extended 500 mg PO DAILY #90 tabs 03/30/23 09/29/23 Rx release 24 hr losartan 50 mg tablet 50 mg PO DAILY #90 tabs 08/21/23 09/29/23 Rx clopidogrel 75 mg tablet 75 mg PO DAILY #90 tabs 09/03/23 09/29/23 Rx ascorbic acid (vitamin C) 500 mg 500 mg PO DAILY 09/28/23 09/29/23 History capsule duloxetine 60 mg capsule,delayed 60 mg PO QPM 09/28/23 09/29/23 History release esomeprazole magnesium 40 mg 40 mg PO QPM 09/28/23 09/29/23 History capsule,delayed release rosuvastatin 20 mg tablet 20 mg PO QPM 09/28/23 09/29/23 History sildenafil 100 mg tablet 100 mg PO PRN PRN sexual activity 09/28/23 09/29/23 History semaglutide 0.25 mg or 0.5 mg (2 0.25 mg (0.368 mL) subcut WEEKLY 09/29/23 09/29/23 Rx mg/3 mL) subcutaneous pen injector #3 mL (Ozempic) dapagliflozin propanediol 10 mg 10 mg PO DAILY #90 tabs 10/03/23 Rx tablet (Farxiga) Allergies Allergy/AdvReac Ty
--- NOTE | 2023-10-06 06:18 | SUR.PREOP ---
0606- DR. ARTIS CALLED TO PRE OP AND STATED HE WAS ILL THIS MORNING, GOING TO CANCEL FIRST CASE. PT UPDATED ON ARRIVAL TO PRE OP. PT GIVEN DISCHARGE INSTRUCTION AND ASKED TO CALL DR. ARTIS OFFICE TO RESCHEDULE.
== END 2023-10-06 06:25 | disposition other institution (70) ==
PROVIDERS: PCP Family Medicine; Visit Provider Orthopaedic Surgery
PROC: (CPT 27130; principal; 2023-10-06 07:30)
DX: M16.11 Unilateral primary osteoarthritis, right hip (principal); Z53.8 Procedure and treatment not carried out for other reasons; I10 Essential (primary) hypertension; E78.00 Pure hypercholesterolemia, unspecified; G47.30 Sleep apnea, unspecified; I48.91 Unspecified atrial fibrillation; I25.10 Atherosclerotic heart disease of native coronary artery without angina pectoris; K21.9 Gastro-esophageal reflux disease without esophagitis; I25.2 Old myocardial infarction; F12.90 Cannabis use, unspecified, uncomplicated; Z79.01 Long term (current) use of anticoagulants; Z79.84 Long term (current) use of oral hypoglycemic drugs; Z79.02 Long term (current) use of antithrombotics/antiplatelets; Z79.85 Long-term (current) use of injectable non-insulin antidiabetic drugs; Z98.890 Other specified postprocedural states; Z95.5 Presence of coronary angioplasty implant and graft; Z80.1 Family history of malignant neoplasm of trachea, bronchus and lung; Z82.49 Family history of ischemic heart disease and other diseases of the circulatory system
CPT/HCPCS: 99211; G0463

== ENCOUNTER 2023-10-29 02:05 | Day surgery (SDC) | payer MEDICARE, SELFPAY ==
--- NOTE | 2023-10-20 11:25 | PC.NURSE ---
Report to the Outpatient Waiting Room, entrance under the green pavilion located off [facility], at time _6 AM on date _10/29/23 . Planned Procedure Time: __7:30 AM .? Time changes happen often and if your time is changed the preop area will call you the afternoon before. - You and your visitor will be asked to self-screen and do not enter if you have any COVID symptoms. Please call surgeon if you need to reschedule. - A mask is optional within the hospital at this time. Patients may have clear liquids (water, carbonated beverages, clear teas, apple juice) until 3 hours prior to surgery( 4:30 AM)with a maximum of 20 ounces. - No food from midnight until time of surgery and no smoking - Infants may have breast milk until 4 hours before surgery, infant formula 6 hours prior to surgery. - Children will be allowed to drink immediately following surgery.? If applicable, please bring a bottle or sippy cup to assist with drinking. Juice, water, soda, and popsicles are readily available.? For infants on formula, please bring formula the day of surgery.? Pacifiers are allowed. Take only the following medications with a SIP of water on the morning of surgery: NONE DO NOT STOP ANY OF YOUR OTHER PRESCRIPTION MEDICATIONS PRIOR TO SURGERY EXCEPT THE FOLLOWING Medications to discontinue per physician __HOLD XARELTO 2 DAYS PRE OP PER DR RICHARD.LAST DOSE 10/26/23 HOLD PLAVIX 7 DAYS PRE OP PER DR RICHARD LAST DOSE 10/21/23, HOLD ALL VITAMINS AND SUPPLEMENTS 3 DAYS PRE OP.LAST DOSE 10/25/23 Date to take last dose Please no make-up, nail amharic, hairspray, perfume, deodorant, or body powder the day of surgery.? No jewelry (including any body piercings) or valuables the day of surgery, leave them at home.? Please take a shower or bath the night before, or the morning of, surgery with an antibacterial soap.? Wear comfortable, loose fitting clothing.? Children are encouraged to wear pajamas. - Jewelry must be removed prior to entering the operating room.? Rings and piercings that are not removed may be cut off. - The hospital will not accept responsibility for valuables.? - Please leave all valuables, including medications, at home the day of surgery. If you are going home after surgery, a licensed tower truck driver must drive you home.? - NO public transportation without another adult if you receive anesthesia. - We recommend that an adult stay with you for 24 hours following discharge. - We also recommend that you do not drive, make important decision, drink alcoholic beverages, or take any drugs that were not prescribed by your health care provider for at least 24 hours after your discharge time. For Pediatric surgeries, we recommend two adults accompany the child home. Follow any additional instructions given to you from your surgeon. Telephone instructions given to ____PT and asked if any additional questions and then verbalized understanding. Patient advised to call surgeon office or pre surgery nurse liaison [phone] if any additional questions.
[2023-10-20 11:34] VITALS: BMI 38.0
--- NOTE | 2023-10-28 07:14 | PM.IMHP ---
H&P: HPI History of Present Illness Date/Time: 10/28/23 07:14 Chief Complaint: Patient has osteoarthritis right hip. The arthritis is no longer responsive to conservative treatment. He has constant pain would like to proceed with hip replacement surgery. 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 H/O dilation of urethra H/O knee surgery Patella fracture. Small piece removed H/O umbilical hernia repair X2 History of cystoscopy 2019 History of heart artery stent x2 History of radiofrequency ablation (RFA) procedure for cardiac arrhythmia S/P right rotator cuff repair 1979 Family History Family History Father Hypertension Family history of heart disease in male family member before age 55 COPD (chronic obstructive pulmonary disease) Pulmonary embolism Grandparent Family history of lung cancer Mother Cancer Cerebrovascular accident COPD (chronic obstructive pulmonary disease) Sibling Diabetes mellitus COPD (chronic obstructive pulmonary disease) Sibling Scoliosis Social History Social History Smoking status: Never smoker Second hand tobacco smoke exposure: Yes Additional smoking assessment comments: DENIES ANY FORM OF TOBACCO USE Alcohol intake: former Substance use: current Substance use type: marijuana Other substance usage details: 09/27/23 Last use: 10/19/23 Do You Feel Safe in your Home?: Yes Lack of Transportation: No Lack of Food: Never True Current Housing: I Have Housing Concerned About Future Housing: No Difficulty Paying Gas/Electric Bills: No Difficulty Paying for Meds: No Currently Unemployed: No Education: High School Diploma/GED Difficulty w/ Childcare or Family Care: No Living arrangements: with family Additional living arrangements comments: Spouse Occupation/Education: retired 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 Gender identity (if verbalized by the patient): Male Spiritual care concerns: No Agree to blood products: Yes Meds Home Medications and Allergies Home Medications Medication Instructions Recorded Confirmed Type rivaroxaban 20 mg tablet 20 mg PO QPM 03/26/21 10/20/23 History metformin 500 mg tablet,extended 500 mg PO DAILY #90 tabs 03/30/23 10/20/23 Rx release 24 hr losartan 50 mg tablet 50 mg PO DAILY #90 tabs 08/21/23 10/20/23 Rx clopidogrel 75 mg tablet 75 mg PO DAILY #90 tabs 09/03/23 10/20/23 Rx ascorbic acid (vitamin C) 500 mg 500 mg PO DAILY 09/28/23 10/20/23 History capsule duloxetine 60 mg capsule,delayed 60 mg PO QPM 09/28/23 10/20/23 History release esomeprazole magnesium 40 mg 40 mg PO QPM 09/28/23 10/20/23 History capsule,delayed release sildenafil 100 mg tablet 100 mg PO PRN PRN sexual activity 09/28/23 10/20/23 History semaglutide 0.25 mg or 0.5 mg (2 0.25 mg (0.368 mL) subcut WEEKLY 09/29/23 10/20/23 Rx mg/3 mL) subcutaneous pen injector #3 mL (Ozempic) dapagliflozin propanediol 10 mg 10 mg PO DAILY #90 tabs 10/03/23 10/20/23 Rx tablet (Farxiga) rosuvastatin 20 mg tablet 20 mg PO QPM #
[2023-10-29] VITALS (15 sets, daily range): BP systolic 132–170; BP diastolic 69–96; PULSE 55–85; RESP 12–21; TEMP 35.7–36.6; O2SAT 95–100; BMI 38.0
--- NOTE | ~2023-10-29 | XR_ITS ---
EXAMINATION: XR surgery orthopedic DATE: 10/29/2023 09:09 INDICATION: Intraoperative evaluation during right total hip arthroplasty TECHNIQUE: 2 frontal views of the right hip were obtained. COMPARISON: None. FINDINGS: Intraoperative image during a right total hip arthroplasty demonstrate placement of an acetabular com ponent which appears in near anatomic alignment on the single image provided, fixed with at least a s rosemary screw. A femoral broach is in place with the proximal tip centered over the acetabular compone nt on the initial image. On the subsequent images this is replaced with a noncemented femoral compone nt. Alignment of the arthroplasty appears near-anatomic. Portions of the pelvis are obscured by overl lucila surgical instrumentation. No fractures in the visualized bones. Expected soft tissue gas at the operative bed. IMPRESSION: 1. Expected appearance during right total hip arthroplasty. See procedure note for further detail. Reviewed, dictated and finalized at location B.
--- NOTE | 2023-10-29 05:49 | WPDHPUPDATE1 ---
History and Physical Update Update Date/Time: 10/29/23 05:49 History and Physical has been reviewed, including an updated exam of the patient. There are NO changes in the patient's condition. Risks, benefits, and alternatives have been discussed and questions answered. Patient agrees to proceed with procedure.
[2023-10-29 06:21] LABS: Glucose Point of Care 160 mg/dl (65-105)
[2023-10-29] MEDS: ACETAMINOPHEN 500 MG TABLET 1000 MG PO (06:59)
[2023-10-29] MEDS: LACTATED RINGERS 1,000 ML 30 ML IV CONT ×2 (06:59→09:47)
[2023-10-29] MEDS: VANCOMYCIN 1,750 MG/NS 500 ML BAG 250 MG IVPB (06:59)
--- NOTE | 2023-10-29 07:14 | WPDANESEPPF ---
Anes - Initial Pre Proc Eval Procedure: Operation Date: 10/29/23 07:30 Proposed Procedures p Right Total Hip Arthroplasty - Ryan Wills MD Date/Time: 10/29/23 07:14 Surgeon: Ryan Wills MD Pre Op Diagnosis: O A Right Hip Patient Data Age: 63 Gender: M Height: 1.78 m Weight: 120.2 kg Last Vital Signs Temp 97.1 F L 10/29/23 06:55 Pulse 56 L 10/29/23 06:55 BP 134/74 10/29/23 06:55 Pulse Ox 98 10/29/23 06:55 O2 Del Method Room Air 10/29/23 06:55 Allergies Allergy/AdvReac Type Severity Reaction Status Date / Time cat dander Allergy Unknown Other Verified 10/29/23 06:54 NSAIDS (Non-Steroidal AdvReac Other Verified 10/29/23 06:54 Anti-Inflamma Home Medications Medication Instructions Recorded Confirmed Type rivaroxaban 20 mg tablet 20 mg PO QPM 03/26/21 10/20/23 History metformin 500 mg tablet,extended 500 mg PO DAILY #90 tabs 03/30/23 10/20/23 Rx release 24 hr losartan 50 mg tablet 50 mg PO DAILY #90 tabs 08/21/23 10/20/23 Rx clopidogrel 75 mg tablet 75 mg PO DAILY #90 tabs 09/03/23 10/20/23 Rx ascorbic acid (vitamin C) 500 mg 500 mg PO DAILY 09/28/23 10/20/23 History capsule duloxetine 60 mg capsule,delayed 60 mg PO QPM 09/28/23 10/20/23 History release esomeprazole magnesium 40 mg 40 mg PO QPM 09/28/23 10/20/23 History capsule,delayed release sildenafil 100 mg tablet 100 mg PO PRN PRN sexual activity 09/28/23 10/20/23 History semaglutide 0.25 mg or 0.5 mg (2 0.25 mg (0.368 mL) subcut WEEKLY 09/29/23 10/20/23 Rx mg/3 mL) subcutaneous pen injector #3 mL (Ozempic) dapagliflozin propanediol 10 mg 10 mg PO DAILY #90 tabs 10/03/23 10/20/23 Rx tablet (Farxiga) rosuvastatin 20 mg tablet 20 mg PO QPM #90 tabs 10/06/23 10/20/23 Rx Laboratory Tests 10/29/23 06:17 POC Capillary Glucose 160 H mg/dl (65-105) Patient hx anesthesia problems: none Family hx anesthesia problems: none Results Review: All pre-operative results and documents have been reviewed as part of the pre-operative evaluation. 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 H/O dilation of urethra H/O knee surgery Patella fracture. Small piece removed H/O umbilical hernia repair X2 History of cystoscopy 2019 History of heart artery stent x2 History of radiofrequency ablation (RFA) procedure for cardiac arrhythmia S/P right rotator cuff repair 1978 Family History Family History Father Hypertension Family history of heart disease in male family member before age 55 COPD (chronic obstructive pulmonary disease) Pulmonary embolism Grandparent Family history of lung cancer Mother Cancer Cerebrovascular accident COPD (chronic obstructive pulmonary disease) Sibling Diabetes mellitus COPD (chronic obstructive pulmonary disease) Sibling Scoliosis Social History Social History Smoking status: Never smoker Second hand tobacco smoke exposure: Yes Additional smoking assessment comments: DENIES ANY FORM OF TOBACCO USE Alcohol intake: former Substance use: current Substance use type: marijuana Other substance usage details: 09/27/23 Last use: 10/19/23 Do You Feel Safe in your Home?: Yes Lack of T
[2023-10-29] MEDS: TRANEXAMIC ACID 1,000MG/ISO100 1,000 MG/100 ML BAG 200 MG IVPB ×2 (07:19→08:59)
[2023-10-29] MEDS: ceFAZolin 3 GM/D5W 100 ML 100 ML IVPB (07:48)
--- NOTE | 2023-10-29 09:07 | W.PM.PROC2 ---
Procedure Note - Detailed Date of Procedure 10/29/23 Pre-op Diagnosis Osteoarthritis Right Hip Post-op Diagnosis Same Procedure Performed RIGHT total hip arthroplasty Surgeon Ryan Wills MD Harp Maker Barry Moya Anesthesia General Indications Pain and Arthritis Description of Procedure Patient was brought to the operating room #7, and an anesthetic was administered. The patient was placed with the operative Hip up and sterilely prepped and draped in the usual manner. A longitudinal incision was performed. Dissection was carried down to the fascia. A Hardinge type approach was used and the femoral head was dislocated anteriorly. The Femoral head was removed a finger breath above the lesser trochanter. The acetabulum was serially reamed to accept a 56 component. This was impacted into place and secured with 2 25mm screws. A high wall liner was placed. The femur was reamed and broached to accept a 11 component which was impacted into place. A plus 0 head and neck were placed and the hip was put through full range of motion. The hip was noted to be stable. The wounds were then closed in a layered fashion using #5 ethibond, 2 vicryl, 2-0 vicryl and johnna. Patient left the operating room in satisfactory condition. This was made particularly difficult by the patient's large size. Implants Biomet Hip Rajat multihole cup Estimated Blood Loss 400 Drains No Packing No Pathology None sent Complications No immediate complications Condition Stable Disposition PACU [facility] Billing Surgery - Charge Forward: Surgery Billing ([id number] Total Hip)
[2023-10-29] MEDS: fentaNYL CITRATE INJ (*CRX) 100 MCG/2 ML VIAL 25 MCG IV PUSH ×9 (09:55→20:38)
[2023-10-29 10:01] LABS: Glucose Point of Care 171 mg/dl (65-105)
[2023-10-29] MEDS: HYDROmorphone HCL INJ (*CRX) 1 MG/ML SYR 0.5 MG IV PUSH ×2 (10:36→10:43)
--- NOTE | 2023-10-29 11:25 | ADMGEN ---
This patient, Abhilash Garrison, was admitted to Medical Room 261-01. Patient/family oriented to hospital policies and general routines including ID bracelet, bed and alarms, visiting hours, pain management, procedures, bathroom and other care routines, personal items, smoking policy, room service/diet, and visiting hours. Information on how to activate the Rapid Response Team has been discussed. Patient/Family are encouraged to report perceived risks to care and to ask questions if they do not understand what they are told or what they should do.
[2023-10-29] MEDS: SODIUM CHLORIDE 0.9% IV 1,000 ML 125 ML IV CONT (11:37)
[2023-10-29] MEDS: HYDROcodone/acetaminophen (*CRX) 7.5-325 MG TABLET 1 TAB PO ×2 (11:45→16:00)
[2023-10-29 12:07] LABS: Glucose Point of Care 179 mg/dl (65-105)
--- NOTE | 2023-10-29 13:49 | PM.IMCN ---
Assessment and Plan Assessment and plan (1) Osteoarthritis of right hip: Qualifiers: Osteoarthritis type: primary Qualified Code(s): M16.11 - Unilateral primary osteoarthritis, right hip Code(s): M16.11 - Unilateral primary osteoarthritis, right hip Status: Acute Assessment and Plan: Patient underwent a total right hip arthroplasty on 10/28. - primary management through orthopedic team - ambulate with assistance and up to chair - hip precautions in place - use IS - neurovasc checks - see order for intervals - SCDs - pain medication and antiemetics p.r.n. 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 Holding Ozempic while hospitalized. - correct regimen ordered - low dose TIDWM - A1C 7.3% on 09/28/2023 (3) Hypertension: Qualifiers: Hypertension type: primary hypertension Qualified Code(s): I10 - Essential (primary) hypertension Code(s): I10 - Essential (primary) hypertension Status: Acute Assessment and Plan: - chronic, currently 139/72 - continue home medications: Losartan - monitor (4) Sleep apnea: Qualifiers: Sleep apnea type: obstructive Qualified Code(s): G47.33 - Obstructive sleep apnea (adult) (pediatric) Code(s): G47.30 - Sleep apnea, unspecified Status: Acute Assessment and Plan: - continue home CPAP Plan Diet: Diabetic GI Prophylaxis: Not currently indicated DVT Prophylaxis: SCDs, TEDs. Lines: Peripheral Code Status: Full code HPI Date of Consult Consult date: 10/29/23 Requesting Physician: Ryan Wills MD Primary Care Provider: Lui Vazquez MD Consult Narrative Reason for consult: Medical Managment Narrative: 63 y/o M presents here with osteoarthritis of the right hip with PMH of AFib, CAD, GERD, HLD, HTN, obesity, sleep apnea, and DM2. The patient presents here for management of his osteoarthritis of the right hip. Patient has previously failed conservative measures including a steroid injections and physical therapy. Last steroid injection in June of 2023. Patient not a good candidate for NSAIDs, on anticoagulation at present. Due to the constant and severe nature of the pain he would like to move forward with surgical management of his right hip. Patient underwent a total right hip arthroplasty on 10/28. Postoperatively he is reporting nauseous and a moderate to severe amount of pain in his right hip. Denies any recent changes to his medications or medical history. No further complaints at this time. Utilizes CPAP for his sleep apnea. Preop VS: 97.1? F, HR 56, RR 21, 134/74, and 90% on RA. Preop workup: No leukocytosis, hemoglobin 13.8, no significant electrolyte derangements, glucose 113, A1c 7.3. Review of Systems Review of Systems: All systems reviewed & are unremarkable except as noted in HPI and below PMFSH Past Medical History Medical History (Updated 10/29/23 @ 13:57 by Kasey Campbell, ROSHNI) Afib Anxiety and depression Arthritis CAD (coronary artery disease) 3 X 16 Taxus Liberte to mid LAD 2007 Colon cancer screening Current use of snf anticoagulation Gastric reflux Heart attack High cholesterol Hypertension Left hip impingement syndrome Morbid obesity Screening PSA (prostate specific antigen) Scrotal mass Sleep apnea Vertigo Vision abnormalities Surgical History Surgical History (Updat
[2023-10-29] MEDS: ONDANSETRON INJ 4 MG/2 ML VIAL IV PUSH ×2 (14:47→23:30)
[2023-10-29] MEDS: ceFAZolin 2 GM/D5W 50 ML 2 GM/50 ML BAG IVPB ×2 (14:49→23:27)
[2023-10-29 17:11] LABS: Glucose Point of Care 142 mg/dl (65-105)
[2023-10-29] MEDS: DULoxetine HCL 60 MG CAPSULE.DR PO (17:17)
[2023-10-29] MEDS: SENNA/DOCUSATE SODIUM TABLET 2 TAB PO (17:17)
[2023-10-29] MEDS: ROSUVASTATIN 20 MG TABLET PO (17:17)
[2023-10-29] MEDS: WATER FOR IRRIGATION, STERILE 1,000 ML BOTTLE 1000 ML (17:26)
[2023-10-29] MEDS: FAMOTIDINE 20 MG TABLET PO (20:46)
[2023-10-29 21:12] LABS: Glucose Point of Care 163 mg/dl (65-105)
[2023-10-29] MEDS: HYDROmorphone HCL INJ (*CRX) 1 MG/ML SYR IV PUSH (23:25)
[2023-10-30] MEDS: HYDROmorphone HCL INJ (*CRX) 1 MG/ML SYR IV PUSH (04:47)
[2023-10-30 04:56] VITALS: BP 130/73; PULSE 58; RESP 18; TEMP 36.1; O2SAT 97
[2023-10-30] MEDS: ONDANSETRON INJ 4 MG/2 ML VIAL IV PUSH ×2 (04:56→08:35)
[2023-10-30 05:43] LABS: Basophils Percent Auto 0.3 % (0.2-1.2); Eosinophils Percent Auto 0.3 % (0-4.4); Hematocrit 40.3 % (42.0-52.0); Hemoglobin 12.3 g/dL (14.0-18.0); Immature Granulocyte Absolute 0.04 K/mm3 (0.00-0.031); Immature Granulocyte Percent A 0.4 % (0-0.5); Lymphocytes Absolute Auto 1.29 K/mm3 (0.9-3.2); Lymphocytes Percent Auto 11.5 % (18.3-44.2); Mean Corpuscular HGB Conc 30.5 g/dl (32-36); Mean Corpuscular Hemoglobin 27.7 pg (26-34); Mean Corpuscular Volume 90.8 fl (80-100); Monocytes Absolute Auto 1.4 K/mm3 (0.1-0.6); Neutrophils Absolute Auto 8.5 K/mm3 (1.3-6.7); Neutrophils Percent Auto 75.5 % (45.5-73.1); Platelet Count Result 189 k/mm3 (150-375); Red Blood Count 4.44 M/mm3 (4.6-6.20); Red Cell Distribution Width 15.5 % (11.5-14.5); White Blood Count 11.2 K/mm3 (4.5-10.0)
--- NOTE | 2023-10-30 05:49 | PM.PNORT ---
Progress Note: A&P Assessment and Plan (1) History of right hip replacement: Code(s): Z96.641 - Presence of right artificial hip joint Status: Acute Assessment and Plan: Patient is S/P Right Total Hip for osteoarthritis. Progressing normally. Up tid. Home today. Subjective Subjective Date/Time Seen: 10/30/23 05:49 Post Op day: 1 Principal diagnosis: Right Total Hip Replacement Review of Systems Musculoskeletal: Musculoskeletal: Reports back pain, Reports arthralgias and Reports joint swelling Exam Narrative: Wiggles toes, NVI. Dressing intact. Objective Data Vital Signs Vital Signs: Vital Signs - 24 hr 10/29/23 06:55 10/29/23 09:47 10/29/23 10:00 Temperature 97.1 F L 97.2 F L Pulse Rate 56 L 77 74 Respiratory Rate 21 H 16 Blood Pressure 134/74 167/82 H 160/92 H Pulse Oximetry 98 99 99 Oxygen Delivery Room Air Simple Face Mask Simple Face Mask Oxygen Flow Rate 8 8 10/29/23 10:15 10/29/23 10:30 10/29/23 10:43 Temperature Pulse Rate 64 70 79 Respiratory Rate 12 16 16 Blood Pressure 170/96 H 152/94 H 154/91 H Pulse Oximetry 96 96 96 Oxygen Delivery Room Air Room Air Room Air Oxygen Flow Rate 10/29/23 11:05 10/29/23 11:20 10/29/23 11:50 Temperature 96.6 F L 96.6 F L 96.2 F L Pulse Rate 69 76 64 Respiratory Rate 17 17 17 Blood Pressure 147/74 H 132/73 133/77 Pulse Oximetry 95 96 95 Oxygen Delivery Oxygen Flow Rate 10/29/23 12:27 10/29/23 12:44 10/29/23 13:00 Temperature 96.8 F L Pulse Rate 85 Respiratory Rate 17 Blood Pressure 139/72 Pulse Oximetry 97 97 Oxygen Delivery Nasal Cannula Room Air Oxygen Flow Rate 2 10/29/23 17:03 10/29/23 19:48 10/29/23 20:34 Temperature 97.6 F 97.6 F Pulse Rate 55 L 64 Respiratory Rate 17 18 Blood Pressure 135/76 144/82 H Pulse Oximetry 98 100 100 Oxygen Delivery Nasal Cannula Oxygen Flow Rate 2 10/29/23 23:52 10/30/23 04:56 Temperature 98 F 97 F L Pulse Rate 55 L 58 L Respiratory Rate 18 18 Blood Pressure 143/69 H 130/73 Pulse Oximetry 98 97 Oxygen Delivery Oxygen Flow Rate Intake/Output Intake/Output: Intake & Output 10/27/23 10/28/23 10/29/23 10/30/23 23:59 23:59 23:59 23:59 Intake Total 678 200 Output Total 1650 1200 Balance -972 -1000 Meds/Results Medications: Active Medications Generic Name Dose Route Start Last Admin Trade Name Freq PRN Reason Stop Dose Admin Hydrocodone Bitart/Acetaminophen 1 tab 10/29/23 10:49 Hydrocodone/Acetaminophen (*Crx) 5-325 Mg Tablet PO Q4H PRN Pain Rated 4-6 Hydrocodone Bitart/Acetaminophen 1 tab 10/29/23 10:49 10/29/23 16:00 Hydrocodone/Acetaminophen (*Crx) 7.5-325 Mg Tablet PO 1 tab Q4H PRN Administration Pain Rated 7-10 Clopidogrel Bisulfate 75 mg 10/30/23 09:00 Clopidogrel Bisulfate 75 Mg Tablet PO DAILY MAGDALENO Cyclobenzaprine HCl 10 mg 10/29/23 10:49 Cyclobenzaprine Hcl 10 Mg Tablet PO Q8H PRN Muscle Spasm Dextrose 12.5 gm 10/29/23 13:58 Dextrose 50% 25 Gm/50 Ml Syringe IV PUSH PRN PRN Hypoglycemia Protocol Diphenhydramine HCl 25 mg 10/29/23 10:49 Diphenhydramine Hcl Inj 50 Mg/Ml Vial IV PUSH Q6H PRN Itching Duloxetine HCl 60 mg 10/29/23 18:00 10/29/23 17:17 Duloxetine Hcl 60 Mg Capsule.Dr PO 60 mg QPM MAGDALENO Administration Empagliflozin 10 mg 10/30/23 09:00 Empagliflozin 10 Mg Tablet PO 11/29/23 08:59 DAILY MAGDALENO Famotidine 20 mg 10/29/23 21:00 10/29/23 20:46 Famotidine 20 Mg Tablet PO 20 mg Q12HR MAGDALENO Administration Glucagon 1 mg 10/29/23 13:58 Glucagon For Inj 1 Mg Vial IM PRN PRN Hypoglycemia Protocol Glucose 15 gm 10/29/23 13:58 Glucose Oral Gel 15 Gm Of Glucse In 37.5 Gm Tube PO PRN PRN Hypoglycemia Protocol Hydromorphone HCl 1 mg 10/29/23 10:49 10/30/23 04:47 Hydromorphone Hcl Inj (*Crx) 1 Mg/Ml Syr IV PUSH 1 mg Q2H
--- NOTE | 2023-10-30 05:52 | PM.DS ---
DS: Admitting Diagnosis Discharge Date 10/30/2023 Admitting Diagnosis Osteoarthritis Right Hip DS: Discharge Diagnosis Discharge Diagnosis (1) History of right hip replacement: Code(s): Z96.641 - Presence of right artificial hip joint Status: Acute Plan Right Total Hip Replacement DS: Summary Hospital Course Hospital Course: S/P PARAMJIT for hip osteoarthritis, RIGHT. Progressing normally. Status at Discharge Functional status at discharge: uses cane/walker Time Spent with Patient Time attestation: Total time spent providing and/or coordinating discharge services: Exam Narrative: NVI. Dressing intact. Ambulatins with a walker. DS: Data Data Completed and Pending Labs on day of discharge: Labs from last 24 hours 10/30/23 10/29/23 10/29/23 04:56 19:51 17:06 WBC 11.2 H RBC 4.44 L Hgb 12.3 L Hct 40.3 L MCV 90.8 MCH 27.7 MCHC 30.5 L RDW 15.5 H Plt Count 189 MPV 10.0 Immature Gran % (Auto) 0.4 Neut % (Auto) 75.5 H Lymph % (Auto) 11.5 L [place] % (Auto) 12.0 H Eos % (Auto) 0.3 Baso % (Auto) 0.3 Lymph # (Auto) 1.29 [place] # (Auto) 1.4 H Eos # (Auto) 0.0 Baso # (Auto) 0.0 Abs Immat Gran (auto) 0.04 H Absolute Neuts (auto) 8.5 H Absolute Nucleated RBC 0.000 Nucleated RBC % 0.0 Sodium Pending Potassium Pending Chloride Pending Carbon Dioxide Pending Anion Gap Pending BUN Pending Creatinine Pending Estim Creat Clear Calc Pending Estimated GFR Pending Glucose Pending POC Capillary Glucose 163 H 142 H Calcium Pending Blood Type Antibody Screen 10/29/23 10/29/23 10/29/23 12:04 09:58 06:38 WBC RBC Hgb Hct MCV MCH MCHC RDW Plt Count MPV Immature Gran % (Auto) Neut % (Auto) Lymph % (Auto) [place] % (Auto) Eos % (Auto) Baso % (Auto) Lymph # (Auto) [place] # (Auto) Eos # (Auto) Baso # (Auto) Abs Immat Gran (auto) Absolute Neuts (auto) Absolute Nucleated RBC Nucleated RBC % Sodium Potassium Chloride Carbon Dioxide Anion Gap BUN Creatinine Estim Creat Clear Calc Estimated GFR Glucose POC Capillary Glucose 179 H 171 H Calcium Blood Type A Positive Antibody Screen Negative 10/29/23 06:17 WBC RBC Hgb Hct MCV MCH MCHC RDW Plt Count MPV Immature Gran % (Auto) Neut % (Auto) Lymph % (Auto) [place] % (Auto) Eos % (Auto) Baso % (Auto) Lymph # (Auto) [place] # (Auto) Eos # (Auto) Baso # (Auto) Abs Immat Gran (auto) Absolute Neuts (auto) Absolute Nucleated RBC Nucleated RBC % Sodium Potassium Chloride Carbon Dioxide Anion Gap BUN Creatinine Estim Creat Clear Calc Estimated GFR Glucose POC Capillary Glucose 160 H Calcium Blood Type Antibody Screen Discharge Plan Discharge Patient Disposition: Home, Self-Care Discharge Instructions: Dr. Ryan Wills M.D [address] [place] [id number] POST-OPERATIVE DISCHARGE INSTRUCTIONS TOTAL HIP ARTHROPLASTY 1. Move toes/feet up and down every hour while awake. 2. Be up walking every hour while awake. 3. Use walker multimedia educational specialist if instructed to use walker multimedia educational specialist.When you are allowed to use the cane, use the cane in the opposite hand. 4. When resting, do not rest in the chair. Rather, lie on your back, with back flat, and the leg elevated above heart to minimize swelling. You may put a pillow under your head. Do not rest in a chair. Resting in the chair results in swelling in the leg. Significant swelling could indicate a blood clot and if this occurs, call the office (or go to the ER) to have a venous ultrasound performed. Its ok to sit in the chair to eat and use the toilet and to receive a guest but sitting in a chair will cause your leg to swell. so try to minimize sitting in a chair. 5. Wound Care
[2023-10-30 05:57] LABS: Anion Gap 8 mmol/L (4-12); Blood Urea Nitrogen 8 mg/dL (9-20); Calcium 8.3 mg/dL (8.4-10.2); Carbon Dioxide 27 mmol/L (22-30); Chloride 102 mmol/L (98-107); Estimated CRCL calculation 136 ml/min; Estimated Glomerular Filt Rate > 60; Glucose 166 mg/dL (65-110); Potassium 4.2 mmol/L (3.4-5.0); Sodium 137 mmol/L (137-145)
[2023-10-30] MEDS: ceFAZolin 2 GM/D5W 50 ML 2 GM/50 ML BAG IVPB (06:04)
[2023-10-30 08:10] LABS: Glucose Point of Care 176 mg/dl (65-105)
[2023-10-30 08:33] VITALS: BP 129/58; PULSE 73; RESP 16; TEMP 36.8; O2SAT 95
[2023-10-30] MEDS: CLOPIDOGREL BISULFATE 75 MG TABLET PO (08:34)
[2023-10-30] MEDS: HYDROcodone/acetaminophen (*CRX) 7.5-325 MG TABLET 1 TAB PO ×2 (08:35→13:20)
[2023-10-30] MEDS: metFORMIN HCL XR 500 MG TAB.SR.24H PO (08:35)
[2023-10-30] MEDS: FAMOTIDINE 20 MG TABLET PO (08:35)
[2023-10-30] MEDS: polyethylene glycoL 3350 17 GM POWD.PACK PO (08:35)
[2023-10-30] MEDS: SENNA/DOCUSATE SODIUM TABLET 2 TAB PO (08:35)
[2023-10-30] MEDS: EMPAGLIFLOZIN 10 MG TABLET PO (08:35)
[2023-10-30 08:40] VITALS: O2SAT 97
[2023-10-30 08:41] VITALS: BP 157/89
[2023-10-30] MEDS: LOSARTAN POTASSIUM 50 MG TABLET PO (08:43)
[2023-10-30 12:07] LABS: Glucose Point of Care 154 mg/dl (65-105)
--- NOTE | 2023-10-30 12:16 | WPDANESPN ---
Anes - Prog Note Post-Op Date/Time: 10/30/23 12:16 Cardiovascular status: normal Respiratory status: normal Airway patency: baseline Mental status: baseline Post-Op hydration status: normal Vital Signs: Last Vital Signs Temp 98.2 F 10/30/23 08:33 Pulse 73 10/30/23 08:33 Resp 16 10/30/23 08:33 BP 157/89 H 10/30/23 08:41 Pulse Ox 95 10/30/23 08:33 O2 Del Method Nasal Cannula 10/29/23 20:34 O2 Flow Rate 2 10/29/23 20:34 Pain Score (VAS): 6 I/O: Intake & Output 10/29/23 10/30/23 10/30/23 23:59 07:59 15:59 Intake Total 170 250 Output Total 750 1200 Balance -580 -950 Laboratory Tests 10/30/23 04:56 10/30/23 04:56 10/29/23 10/29/23 10/30/23 17:06 19:51 04:56 WBC 11.2 H RBC 4.44 L Hgb 12.3 L Hct 40.3 L MCV 90.8 MCH 27.7 MCHC 30.5 L RDW 15.5 H Plt Count 189 MPV 10.0 Immature Gran % (Auto) 0.4 Neut % (Auto) 75.5 H Lymph % (Auto) 11.5 L [place] % (Auto) 12.0 H Eos % (Auto) 0.3 Baso % (Auto) 0.3 Lymph # (Auto) 1.29 [place] # (Auto) 1.4 H Eos # (Auto) 0.0 Baso # (Auto) 0.0 Abs Immat Gran (auto) 0.04 H Absolute Neuts (auto) 8.5 H Absolute Nucleated RBC 0.000 Nucleated RBC % 0.0 Sodium 137 Potassium 4.2 Chloride 102 Carbon Dioxide 27 Anion Gap 8 BUN 8 L D Creatinine 0.60 L Estim Creat Clear Calc 136 Estimated GFR > 60 Glucose 166 H POC Capillary Glucose 142 H 163 H Calcium 8.3 L 10/30/23 10/30/23 07:45 12:03 WBC RBC Hgb Hct MCV MCH MCHC RDW Plt Count MPV Immature Gran % (Auto) Neut % (Auto) Lymph % (Auto) [place] % (Auto) Eos % (Auto) Baso % (Auto) Lymph # (Auto) [place] # (Auto) Eos # (Auto) Baso # (Auto) Abs Immat Gran (auto) Absolute Neuts (auto) Absolute Nucleated RBC Nucleated RBC % Sodium Potassium Chloride Carbon Dioxide Anion Gap BUN Creatinine Estim Creat Clear Calc Estimated GFR Glucose POC Capillary Glucose 176 H 154 H Calcium Post-procedural complaints: nausea (denies nausea immediately after surgery. identifies nausea occurring after narcotic administration) Patient Feedback: Patient satisfied with anesthetic care.
--- NOTE | 2023-10-30 12:29 | PM.IMCN ---
Assessment and Plan Assessment and plan (1) Osteoarthritis of right hip: Qualifiers: Osteoarthritis type: primary Qualified Code(s): M16.11 - Unilateral primary osteoarthritis, right hip Code(s): M16.11 - Unilateral primary osteoarthritis, right hip Status: Acute Assessment and Plan: Patient underwent a total right hip arthroplasty on 10/28. - primary management through orthopedic team - ambulate with assistance and up to chair - hip precautions in place - use IS - neurovasc checks - see order for intervals - SCDs - pain medication and antiemetics p.r.n. - monitor labs in AM - CBC and BMP - bowel regimen: docusate/senna, polyethylene glycol - PT/OT eval and treat (2) Diabetes type 2, controlled: Qualifiers: Diabetes mellitus meterman insulin use: without meterman use Diabetes mellitus complication status: without complication Qualified Code(s): E11.9 - Type 2 diabetes mellitus without complications Code(s): E11.9 - Type 2 diabetes mellitus without complications Status: Acute Assessment and Plan: - hypoglycemia protocol - POC blood glucose ACHS - home medication: Jardiance and metformin XR. Holding Ozempic while hospitalized. - correct regimen ordered - low dose TIDWM - A1C 7.3% on 09/28/2023 -resume home meds- keep a close f/u with pcp for kidney function recheck and hga1c (3) Hypertension: Qualifiers: Hypertension type: primary hypertension Qualified Code(s): I10 - Essential (primary) hypertension Code(s): I10 - Essential (primary) hypertension Status: Acute Assessment and Plan: - chronic, currently 139/72 - continue home medications: Losartan - monitor- keep log at home (4) Sleep apnea: Qualifiers: Sleep apnea type: obstructive Qualified Code(s): G47.33 - Obstructive sleep apnea (adult) (pediatric) Code(s): G47.30 - Sleep apnea, unspecified Status: Acute Assessment and Plan: - continue home CPAP Plan Diet: Diabetic GI Prophylaxis: Not currently indicated DVT Prophylaxis: SCDs, TEDs. Lines: Peripheral Code Status: Full code HPI Date of Consult Consult date: 10/30/23 Requesting Physician: Ryan Wills MD Primary Care Provider: Lui Vazquez MD Consult Narrative Reason for consult: medical mngmnt Narrative: 63 y/o M presents here with osteoarthritis of the right hip with PMH of AFib, CAD, GERD, HLD, HTN, obesity, sleep apnea, and DM2. The patient presents here for management of his osteoarthritis of the right hip. Patient has previously failed conservative measures including a steroid injections and physical therapy. Last steroid injection in June of 2023. Patient not a good candidate for NSAIDs, on anticoagulation at present. Due to the constant and severe nature of the pain he would like to move forward with surgical management of his right hip. Patient underwent a total right hip arthroplasty on 10/28. Postoperatively he is reporting nauseous and a moderate to severe amount of pain in his right hip. Denies any recent changes to his medications or medical history. No further complaints at this time. Utilizes CPAP for his sleep apnea. Preop VS: 97.1? F, HR 56, RR 21, 134/74, and 90% on RA. Preop workup: No leukocytosis, hemoglobin 13.8, no significant electrolyte derangements, glucose 113, A1c 7.3. he is seen and examined. H e is stable, reports pain- but tolerable. Bowel moving, voiding with no problems. going to be discharged today. Review of Systems Review of Systems: All systems reviewed & are unremarkable except as noted in HPI and below PMFSH Past Medical History Medical History (Updated 10/29/23 @ 13:57 by Kasey Campbell APRN) Afib Anxiety and depression Arthritis CAD (coronary artery disease) 3 X 16 Taxus Liberte to mid LAD 2007 Colon cancer screening Current use of meterman anticoagulation Gastric reflux Hea
[2023-10-30 12:40] VITALS: BP 141/70; PULSE 68; RESP 16; TEMP 36.9; O2SAT 96
== END 2023-10-30 14:00 | disposition home health service (06) ==
LOC: ANHSURGERY 05:59 → ANH2MED 10:50
PROVIDERS: PCP Family Medicine; Visit Provider Orthopaedic Surgery
PROC: (CPT 27130; principal; 2023-10-29 07:30)
DX: M16.11 Unilateral primary osteoarthritis, right hip (principal); E11.9 Type 2 diabetes mellitus without complications; I10 Essential (primary) hypertension; G47.33 Obstructive sleep apnea (adult) (pediatric); I48.91 Unspecified atrial fibrillation; I25.10 Atherosclerotic heart disease of native coronary artery without angina pectoris; E78.5 Hyperlipidemia, unspecified; K21.9 Gastro-esophageal reflux disease without esophagitis; I25.2 Old myocardial infarction; Z95.5 Presence of coronary angioplasty implant and graft; F12.90 Cannabis use, unspecified, uncomplicated; E66.9 Obesity, unspecified; Z68.38 Body mass index [BMI] 38.0-38.9, adult; Z79.01 Long term (current) use of anticoagulants; Z79.84 Long term (current) use of oral hypoglycemic drugs; Z79.02 Long term (current) use of antithrombotics/antiplatelets; Z79.85 Long-term (current) use of injectable non-insulin antidiabetic drugs
CPT/HCPCS: 27130; 36415; 80048; 82948; 85025; 86850; 86900; 86901; 97110; 97116; 97161; 97165; 97530; 97535; 99199; A9270; C1776; J0690; J1170; J1596; J2250; J2405; J3010; J3370; J7030; J7120

== ENCOUNTER 2024-04-21 07:54 | Outpatient (CLI) | payer MEDICARE, SELFPAY ==
--- OUTSIDE RECORDS SUMMARY | 2024-04-21 08:03 | XMS_ITS | Data Portability ---
Author Organization [place] [facility], Main Office Address [address] [place] [address] Care Team Providers Care Drain Cleaner Name Role Phone SHAMIR MEZA Primary Care Provider SHAMIR MEZA Referring Provider [phone] Assessment No assessment recorded. Plan of Treatment Reminders Order Date Submit Date Provider Last Modified By Organization Details Last Modified Time Details Appointments None record ed. Lab None record ed. Referral None record ed. Procedures None record ed. Surgeries None record ed. Imaging None record ed. Medication Orders None record ed. Patient TargetsNo targets recorded. Patient InstructionsNo instructions recorded. Reason for Referral None Reported. Results Created Date Observation Date Name Description Value Unit Range Abnormal Flag Note LastModifiedBy Organization Detail LastModifiedTime 03/02/1902/26/2022 imagi ng/di agnos tic resul t No observ ation record ed. [id number] Not Available 04/15/2022 12:52:38 Result Notes None recorded. Problems Name Problem SNOMED Code Status Onset Date Resolution Date Notes Provider Name and Address Organization Details Recorded Time Metatarsalgi a 53269336 Active Not Available [facility] 3 12:49:01 Gouty arthropathy 426693804 Active Not Available [facility] 3 12:49:01 Plantar fasciitis 582065327 Active Not Available [facility] 3 12:49:01 Myocardial infarction 10246309 Active 2007, one stint placed Not Available [facility] 3 12:49:01 Osteoarthrit is 191881482 Active Not Available [facility] 3 12:49:01 Scrotal mass 21357455 Active 2022 Not Available [facility] 3 12:49:01 Upper respiratory infection 22495836 Active Not Available [facility] 3 12:49:01 Derangement of knee 91777326 Active Not Available [facility] 3 12:49:01 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 Procedures Surgical History None recorded. Imaging Results Imaging Date Name Status LastModified by Organiz ation Details LastModified Time 02/26/2022 imaging/torri gnostic result completed [id number] Information not available 04/15/2022 12:52:38 Procedure Notes None recorded. Medical Equipment None Reported. Medications Name Sig Start Date Stop Date Status Note LastModified by Organization Details LastModified Time amoxicillin 500 mg capsule 12/09 completed Not Available Not Available Not Available prednisone 10 mg tablet TK 3 TS PO QD 12/09 completed Not Available Not Available Not Available doxycycline hyclate 100 mg capsule active Not Available Not Available N ot Available triazolam 0.25 mg tablet TK 2 TS PO 1 HOUR PRIOR TO DENTAL PROCEDURE . DO NOT DRIVE ON THIS MEDICATIO N 12/09 completed Not Available Not Available Not Available azithromyci n 250 mg tablet TK UTD 12/09 completed Not Available Not Available Not Available hydrocodone 5 mg-acetamin ophen 325 mg tablet TAKE 1 TABLET BY MOUTH EVERY 4 HOURS NEEDED FOR PAIN 02/27 completed Not Available Not Available Not Available prednisone 20 mg tablet TK 2 TS PO QD FOR 3 DAYS 12/09 completed Not Available Not Available Not Available Viagra 50 mg tablet active Not Available Not Available No t Available perindopril erbumine 4 mg tablet TK 1 T PO ONCE D 12/09 completed Not Available Not Available Not Available penicillin V potassium 500 mg tablet TK 1 T PO QID TAT 12/09 completed Not Available Not Available Not Available acetaminoph en 300 mg-codeine 30 mg tablet TK 1 T PO Q 6 H PRN 12/09 completed Not Available Not Available Not Available clopidogrel 75 mg tablet TAKE 1 TABLET BY MOUTH DAILY active Not Available Not Available No t Available ciprofloxac in 500 mg tablet TAKE 1 TABLET BY MOUTH TWICE DAILY 02/27 completed Not Available Not Available Not Available hydrocodone 10 mg-acetamin ophen 325 mg tablet 12/09 completed Not Available Not Available Not Available tramadol 50 mg tablet TAKE 1 TABLET BY MOUTH EVERY 6 HOURS NEEDED active Not Available Not Available No t Available sildenafil 100 mg tablet Take 1 tablet every day by oral route. 2022 active Not Available Not Available Not Avai lable terbinafine HCl 250 mg tablet active Not Available Not Available Not Available Guaiatussin AC 10 mg-100 mg/5 mL oral liquid active Not Available Not Available Not Available tamsulosin 0.4 mg capsule TK 1 C PO HS 02/27 completed Not Available Not Available Not Available baclofen 10 mg tablet TAKE 1 TABLET BY MOUTH TWICE DAILY NEEDED FOR HIP PAIN 02/27 completed Not Available Not Available Not Available Cartia XT 120 mg capsule,ext ended release 12/09 completed Not Available Not Available Not Available hydrocodone 7.5 mg-acetamin ophen 325 mg tablet TK 1 T PO Q 6 H PRF DENTAL PAIN 12/09 completed Not Available Not Available Not Available cephalexin 500 mg capsule 12/09 completed Not Available Not Available Not Available simvastatin 20 mg tablet 12/09 completed Not Available Not Available Not Available esomeprazol e magnesium 40 mg capsule,del ayed release Take 1 capsule every day by oral route. 2022 active Not Available Not Available Not Avai lable losartan 25 mg tablet active Not Available Not Available No t Available indomethaci n 25 mg capsule TK ONE C PO TID WITH FOOD 12/09 completed Not Available Not Available Not Available cefuroxime axetil 500 mg tablet TK 1 T PO Q 12 H 12/09 completed Not Available Not Available Not Available methylpredn isolone 4 mg tablets in a dose pack TK 1 DOSEPAK PO UTD 12/09 completed Not Available Not Available Not Available fluticasone propionate 50 mcg/actuati on nasal spray,suspe nsion active Not Available Not Available Not Available metformin ER 500 mg tablet,exte nded release 24 hr TAKE 1 TABLET BY MOUTH DAILY active Not Available Not Available No t Available doxycycline hyclate 100 mg tablet TAKE 1 TABLET BY MOUTH TWICE DAILY 02/27 completed Not Available Not Available Not Available naproxen 500 mg tablet TK 1 T PO Q 12 H PRF PAIN 12/09 completed Not Available Not Available Not Available amoxicillin 875 mg-potassiu m clavulanate 125 mg tablet TK 1 T PO Q 12 H FOR 10 DAYS 12/09 completed Not Available Not Available Not Available escitalopra m 10 mg tablet TK 1 T PO QD 02/27 completed Not Available Not Available Not Available cyclobenzap rine 5 mg tablet TK 1 T PO TID 12/09 completed Not Available Not Available Not Available rosuvastati n 20 mg tablet TAKE 1 TABLET BY MOUTH EVERY DAY active Not Available Not Available No t Available duloxetine 60 mg capsule,del ayed release TAKE 1 CAPSULE BY MOUTH EVERY DAY active Not Available Not Available No t Available chlorhexidi ne gluconate 0.12 % mouthwash SWISH ONE CAPFUL BID 12/09 completed Not Available Not Available Not Available ProAir HFA 90 mcg/actuati on aerosol inhaler INL 2 PFS PO Q 4 TO 6 H PRN 12/09 completed Not Available Not Available Not Available Simcor 500 mg-20 mg tablet,exte nded release 12/09 completed Not Available Not Available Not Available Voltaren 1 % topical gel APPLY 2 GRAM TO THE AFFECTED AREA(S) BY TOPICAL ROUTE BID active Not Available Not Available No t Available ProChamber FPD 12/09 completed Not Available Not Available Not Available Xarelto 20 mg tablet TAKE 1 TABLET BY MOUTH EVERY DAY active Not Available Not Available No t Available Vitals Date Recorded Body mass index (BMI) Body height Oxygen saturation Oxygen saturation in Arterial blood by Pulse oximetry Heart rate Respiratory rate Body temperature Body weight Systolic blood pressure Diastolic blood pressure Provider Name and Address Organization Details Last Updated DateTime 3 38 kg/m2 177.8 cm 97 % 97 % 61 /min 18 /min 97.7 [degF] 925951. 98 g 140 mm[Hg] 90 mm[Hg] Not Available [facility] 3 12:48:17 Date Recorded Body mass index (BMI) Body height Oxygen saturation Oxygen saturation in Arterial blood by Pulse oximetry Heart rate Body temperature Body weight Systolic blood pressure Diastolic blood pressure Provider Name and Address Organization Details Last Updated DateTime 3 38 kg/m2 177.8 cm 96 % 96 % 64 /min 98.6 [degF] 054040. 98 g 152 mm[Hg] 81 mm[Hg] Not Available [facility] 12:48:17 Date Recorded Body height Provider Name an d Address Organization Details Last Updated DateTime 04/24/2022 177.8 cm Paula Millan [place] [facility] [employer] 04/24/2022 15:54:38 Date Recorded Heart rate Oxygen saturation Oxygen saturation in Arterial blood by Pulse oximetry Body mass index (BMI) Body weight Body temperature Provider Name and Address Organization Details Last Updated DateTime 90 /min 99 % 99 % 38.3 kg/m2 687094. 16 g 98.4 [degF] MARIXA Glover [place] [facility] 16:06:34 Social History Question Answer Notes LastModified by Nayatekat ion Details LastModified Time Tobacco Smoking Status Never Smoker Not Available [facility] 04/15/2022 12:46:17 What Is Your Level Of Alcohol Consumption? None [id number] Information not available 04/15/2022 What Is Your Level Of Caffeine Consumption? Moderate [id number] Information not available 04/15/2022 Which Illicit Or Recreational Drugs Have You Used? Marijuana [id number] Information not available 04/15/2022 Do You Use Any Illicit Or Recreational Drugs? Yes [id number] Information not available 04/15/2022 Has Tobacco Cessation Counseling Been Provided? No [id number] Information not available 04/15/2022 Have You Recently Traveled Abroad? No [id number] Information not available 04/15/2022 Do You Or Have You Ever Used Any Other Forms Of Tobacco Or Nicotine? No [id number] Information not available 04/15/2022 Sex: Unknown Functional Status None recorded. Mental Status None recorded. Family History Relationship Description Onset Age of this Age Resolved Age Notes LastModified by Organization Details LastModified Time Father Venous varices Heart Diseas e [id number] Not available 04/15/2022 12:46:29 Father Heart disease [id number] Not available 04/15/2022 12:46:29 Father Hypertensive disorder [id number] Not available 04/15/2022 12:46:29 Brother Venous varices Heart Diseas e [id number] Not available 04/15/2022 12:46:29 Brother Diabetes mellitus [id number] Not available 04/15/2022 12:46:29 Mother Diabetes mellitus [id number] Not available 04/15/2022 12:46:29 Mother Hypertensive disorder [id number] Not available 04/15/2022 12:46:29 Medical History Condition Response DIABETES, TYPE Y HEART DISEASE/HEART PROBLEMS Y ARTHRITIS Y GOUT Y USE OF BLOOD THINNERS Y DEPRESSION (INCLUDING POST ) Y HYPERTENSION Y HIGH CHOLESTEROL / HYPERLIPIDEMIA Y Past Encounters Encounter ID Performer Location Encounter Start Date Encounter Closed Date Diagnosis/Indication Diagnosis SNOMED-CT Code Diagnosis ICD10 Code Diagnosis Note [id number] [facility] General Surgery [address] [place] [address], [facility] [address] [place] [address] 02/26/2022 00:00:00 02/26/2022 13:09:[id number] [facility] Urology [address] [address] 02/27/2022 00:00:00 02/27/2022 17:05:10 [id number] Sukhi Leonard MD 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 Pain from the lipoma is now improved, and patient healing well overall with very small dehiscence . Will place gauze on this for healing and keep dry. Patient to follow up in 2 months vs PRN. he is very happy with results. Health Concerns Section Related Observation LastModified by Organization Detai ls LastModified Time None Recorded Concern Status LastModified by Organization Details LastModified Time None Recorded Advance Directives Directive None Recorded Payers Encounter Date Sequence Insurance Name Policy Number Policy Jaffe Covered Member ID Jaffe Member ID Guarantor Name 04/24/2022 1 [facility] [place] [employer] [place] ([place]) [id number] Abhilash Garrison [id number] Abhilash Garrison Notes Date Note Type Note Provider Name and Address Organization Details Recorded Time 04/24/2022 text/html Original HPI:61M with history of right groin pain with previous hernia repair. Patient has been having pain for some time. Has had imaging with CT abdomen/pelvis which showed bilateral inguinal hernias and umbilical hernias, as well as another CT pelvic which confirmed these findings, as well as a scrotal ultrasound which did not show any abnormalities. 04/24/2022: Patient noted to have a left groin lesion/abnormalit y separate from testis/cord on exam, and now s/p right scrotal/groin lipoma excision on 03/2022. Pathology came back as lipoma. Patient feels much better, and his pain is much improved per report. States incision opened up very slightly but healing well overall. Sukhi Leonard MD [address] [place] [address], [place], [address], [place] [facility] [employer] [facility] 04/24/2022 16:39:09
--- OUTSIDE RECORDS SUMMARY | 2024-04-21 08:03 | XMS_ITS | Clinical Summary ---
Author Organization [facility] [place] [address] Address [address] [place] [address] Care Team Providers Care Servicenow Administrator Developer Name Role Phone Lui Vazquez MD Primary Care Provider Jarrod Josue MD Unavailable Gautam Rajput MD Unavailable [phone] Allergies Active Allergy Reactions Criticality Noted Date Comments Metoprolol Fatigue Low 10/24/2012 Medications clopidogrel (PLAVIX) 75 mg tabletIndication s:Coronary artery disease involving pilot [place] coronary artery of pilot [place] heart without angina pectoris Take 1 tablet (75 mg total) by mouth daily 90 tablet [address] (NexIUM) 40 mg capsuleIndicatio ns:Stress Ulcer Prophylaxis Take 1 capsule (40 mg total) by mouth daily before breakfast 90 capsule 3 0 Active rosuvastatin (CRESTOR) 20 mg tablet Take 1 tablet (20 mg total) by mouth daily 90 tablet 3 0 Active sildenafiL (VIAGRA) 100 mg tablet Take 1 tablet (100 mg total) by mouth daily as needed for erectile dysfunction Active DULoxetine DR (CYMBALTA) 60 mg capsule Take 1 capsule (60 mg total) by mouth daily Active metFORMIN XR (GLUCOPHAGE XR) 500 mg 24 hr tablet Take 1 tablet (500 mg total) by mouth daily with breakfast 30 tablet 1 Active losartan (COZAAR) 25 mg tabletIndication s:Essential hypertension TAKE 1 TABLET(25 MG) BY MOUTH DAILY 30 tablet 11 3 Active Farxiga 5 mg tablet Take 1 tablet (5 mg total) by mouth daily 4 Active Xarelto 20 mg tabletIndication s:Paroxysmal atrial fibrillation (HCC) TAKE 1 TABLET BY MOUTH EVERY DAY 90 tablet 3 4 Active Active Problems Problem Noted Date Diagnosed Date S/P ablation of atrial fibrillation 09/23/2023 Overview (09/23/2023): Radiofrequency catheter ablation for atrial fibrillation with Dr. Josue 04/09/2020. Postnasal drip 06/26/2021 Acute sinusitis 06/26/2021 Chronic low back pain 06/26/2021 Cough 06/26/2021 Derangement of knee 06/26/2021 Gouty arthropathy 06/26/2021 Occlusion and stenosis of unspecified carotid ar ayo 06/26/2021 Osteoarthritis 06/26/2021 Upper respiratory infection 06/26/2021 BMI 38.0-38.9,adult 04/22/2020 Chronic anticoagulation 04/10/2019 Assessment & Plan (09/22/2022 12:27 PM CDT): -remains compliant on Xarelto therapy, asymptomatic -[id number] is 3 -recommend continued therapy for thromboprophylaxis Coronary artery disease invo lving pilot station coronary artery of pilot [place] heart without angina pectoris 09/05/2018 Paroxysmal atrial fibrillation 09/05/2018 Assessment & Plan (09/22/2022 12:29 PM CDT): -symptomatic paroxysmal to persistent atrial fibrillation, with early recurrence after RFA, multiple cardioversions, refractory to sotalol and amiodarone -denies any symptoms of a recurrence of atrial fibrillation -normal LV function -not currently on any antiarrhythmic therapy -no medication changes were made at this -EKG today demonstrates sinus rhythm (65) -Follow up in 1 year for 12 lead EKG in clinic visit DAMIEN on CPAP 09/05/2018 Hyperlipidemia 09/05/2018 Mitral valve insufficiency 11/09/2012 Sinus bradycardia 03/05/2009 Pain in unspecified limb 03/14/2008 Stenosis of right carotid artery 12/14/2007 Hypertension Surgical History Surgery Date Site/Laterality Comments CORONARY STENT PLACEMENT UMBILICAL HERNIA REPAIR REPLACEMENT TOTAL KNEE URETHRAL DILATION CARDIAC ELECTROPHYSIOLOGY STUDY AND ABLATION Medical History Medical History Date Comments Hypertension Heart attack (HCC) Hyperlipidemia Anxiety Depression Arthritis GERD (gastroesophageal reflux disease) 1989 Atrial fibrillation (HCC) Obesity Diabetes (HCC) Sleep apnea Family History Medical History Relation Name Comments Diabetes Brother Heart disease Brother Lung disease Brother Mental illness Brother Blood Clot Father Kei COPD Father Kei Hypertension Father Kei COPD Mother Daniel Cancer Mother Daniel Diabetes Mother Daniel Heart disease Mother Daniel Hypertension Mother Daniel Kidney disease Mother Daniel Stroke Mother Daniel Relation Name Status Comments Brother Father Kei (Age 72) Mother Daniel (Age 76) Social History Tobacco Use Types Packs/Day Years Used Date Smoking Tobacco: Never Smokeless Tobacco: Never Tobacco Cessation:Counseling Given: Not Answered Alcohol Use Standard Drinks/Week Comments Yes 30 (1 standard drink = 0.6 oz pu re alcohol) Monthly Personal Safety Answer Date Recorded Getting School Help Needed Not on file 03/06 Sex and Gender Information Value Date Recorded Sex Assigned at Not on file Legal Sex Male 1:38 PM CDT Gender Identity Not on file Sexual Orientation Not on file Occupation Industry Job Start Date Job End Date retired Not on file Not on file Not on file Obstetrics History Last Filed Vital Signs Vital Sign Reading Time Taken Comments Blood Pressure 138/72 09/23/2023 10:47 AM CDT Pulse 55 09/23/2023 10:47 AM CDT Temperature 36 C (96.8 F) 04/19/2020 3:35 PM [employer] Respiratory Rate 18 04/19/2020 3:35 PM [employer] Oxygen Saturation 96% 09/23/2023 10: 47 AM CDT Inhaled Oxygen Concentration - - Weight 121.1 kg (266 lb 14.4 oz) 2023 10:47 AM CDT Height 177.8 cm (5' 10 ) 09/23/2023 10: 47 AM CDT Body Mass Index 38.3 09/23/2023 10:47 AM CDT Plan of Treatment Health Maintenance Due Date Last Done Comments Colon Cancer Screening-Colonoscopy 1960 Depression Screening 1960 Hepatitis C Screening 1958 Prostate Cancer Screening-PSA 1958 DTaP/Tdap/Td Vaccine (1 - Tdap) 1969 Hepatitis B Screening 1976 Pneumococcal vaccine 65+ (1 of 1 - PCV) 2008 Zoster Vaccine (1 of 2) 2008 Fall Risk Assessment 04/19/2021 04/19/2020 Well Visit 65+ 2023 Influenza Vaccine (#1) 2023 Medical Devices Implanted Type Area Teradata Solution Architect Device Identifier Shelf Expiration Date Model / Serial / Lot [employer] [id number] System 6-12fr Mvp Venous Closure Vascade - [id number] - [id number] Implanted:Qty: 1 on 04/09/2020 by Jarrod Josue MD at [facility] [employer] 02/20/2022 800-612C-1 0U / [id number] / [id number] [employer] [id number] System 6-12fr Mvp Venous Closure Vascade - [id number] - [id number] Implanted:Qty: 1 on 04/09/2020 by Jarrod Josue MD at [facility] [employer] 02/20/2022 800-612C-1 0U / [id number] / [id number] [employer] [id number] Device Closure Vascade Od5 Fr Femoral Artery - [id number] - [id number] Implanted:Qty: 1 on 04/09/2020 by Jarrod Josue MD at [facility] [employer] 01/16/2022 700-500DX- 05U / [id number] / [id number] [employer] [id number] System 6-12fr Mvp Venous Closure Vascade - [id number] - [id number] Implanted:Qty: 1 on 04/09/2020 by Jarrod Josue MD at [facility] [employer] 02/20/2022 800-612C-1 0U / [id number] / [id number] Insurance [facility] MEDICARE SOLUTIONS Advance Directives For more information, please contact: [phone] * Full Code (Latest Code Status on File) Date Activated Date Inactivated Comments 04/17/2020 7:48 AM 04/19/2020 9:37 PM * Full Code Date Activated Date Inactivated Comments 04/09/2020 7:54 PM 04/10/2020 8:11 PM * Full Code Date Activated Date Inactivated Comments 03/01/2020 12:10 PM 03/02/2020 5:23 PM Care Teams Servicenow Administrator Developer Relationship Specialty Start Date End Date Lui Vazquez MD PCP - General Family Medicine 07/08/18 Jarrod Josue MD Consulting Physician Cardiology 03/01/20 [place] [id number] [place] [address] Consulting Physician General Surgery 04/10/20
--- OUTSIDE RECORDS SUMMARY | 2024-04-21 08:03 | XMS_ITS | Referral Summary ---
Author Organization [facility] [place] [address] Address [address] [place] [address] Care Team Providers Care Signal And Communications Maintainer Name Role Phone Lui Vazquez MD Primary Care Provider Jarrod Josue MD Unavailable Gautam Rajput MD Unavailable [phone] Allergies Active Allergy Reactions Criticality Noted Date Comments Metoprolol Fatigue Low 10/24/2012 Medications clopidogrel (PLAVIX) 75 mg tabletIndication s:Coronary artery disease involving [place] coronary artery of [place] heart without angina pectoris Take 1 tablet [...] CDT): -remains compliant on Xarelto therapy, asymptomatic -[id number] is 3 -recommend continued therapy for thromboprophylaxis Coronary artery disease invo lving [place] coronary artery of [place] heart without angina pectoris 09/05/2018 Paroxysmal atrial [...] Stenosis of right carotid artery 12/14/2007 Hypertension Social History Tobacco Use Types Packs/Day Years [...] file Not on file Not on file Last Filed Vital Signs Vital Sign Reading Time Taken Comments Blood Pressure 138/72 09/23/2023 10:47 AM CDT Pulse 55 09/23/2023 10:47 AM CDT Temperature 36 C (96.8 F) 04/19/2020 3:35 PM [employer] Respiratory Rate 18 04/19/2020 3:35 PM [employer] Oxygen Saturation 96% 09/23/2023 10: 47 AM CDT Inhaled Oxygen Concentration - - Weight 121.1 kg (266 lb 14.4 oz) 2023 10:47 AM CDT Height 177.8 cm (5' 10 ) 09/23/2023 10: 47 AM CDT Body Mass Index 38.3 09/23/2023 10:47 AM CDT Plan of Treatment Not on file Medical Devices Implanted Type Area Legal Receptionist Device Identifier Shelf Expiration Date Model / Serial / Lot [employer] [id number] System 6-12fr Mvp Venous Closure Vascade - [id number] - [id number] Implanted:Qty: 1 on 04/09/2020 by Jarrod Josue MD at [facility] [employer] 02/20/2022 800-612C-1 0U / [id number] / [id number] [employer] [id number] System 6-12fr Mvp Venous Closure Vascade - [id number] - [id number] Implanted:Qty: 1 on 04/09/2020 by Jarrod Josue MD at [facility] [employer] 02/20/2022 800-612C-1 0U / [id number] / [id number] [employer] [id number] Device Closure Vascade Od5 Fr Femoral Artery - [id number] - [id number] Implanted:Qty: 1 on 04/09/2020 by Jarrod Josue MD at [facility] [employer] 01/16/2022 700-500DX- 05U / [id number] / [id number] [employer] [id number] System 6-12fr Mvp Venous Closure Vascade - [id number] - [id number] Implanted:Qty: 1 on 04/09/2020 by Jarrod Josue MD at [facility] [employer] 02/20/2022 800-612C-1 0U / [id number] / [id number] Insurance [facility] [place] [address] [place] [address] MEDICARE SOLUTIONS Advance Directives For more information, please contact: [phone] * Full Code (Latest Code Status on File) Date Activated Date Inactivated Comments 04/17/2020 7:48 AM 04/19/2020 9:37 PM * Full Code Date Activated Date Inactivated Comments 04/09/2020 7:54 PM 04/10/2020 8:11 PM * Full Code Date Activated Date Inactivated Comments 03/01/2020 12:10 PM 03/02/2020 5:23 PM Care Teams Signal And Communications Maintainer Relationship Specialty Start Date End Date Lui Vazquez MD PCP - General Family Medicine 07/08/18 Jarrod Josue MD Consulting Physician Cardiology 03/01/20 [place] [id number] [place] [address] Consulting Physician General Surgery 04/10/20
--- OUTSIDE RECORDS SUMMARY | 2024-04-21 08:03 | XMS_ITS | Encounter Summary ---
Author Organization [facility] Address [address] [place] [address] Phone Care Team Providers Care Resolution Specialist Name Role Phone Lui Vazquez MD Primary Care Provider + [phone] Jarrod Josue MD Unavailable [phone] Gautam Rajput MD Unavailable [phone] Encounter Details Date Type Department Care Team (Late st Contact Info) Description 07/18/2021 Orders Only [facility] PMR [phone] Scanning, Provider Social History Tobacco Use Types Packs/Day Years Used Date Smoking Tobacco: Never Smokeless Tobacco: Never Alcohol Use Standard Drinks/Week Comments Yes 30 (1 standard drink = 0.6 oz pu re alcohol) Monthly Sex and Gender Information Value Date Recorded Sex Assigned at Not on file Legal Sex Male 1:38 PM CDT Gender Identity Not on file Sexual Orientation Not on file Occupation Industry Job Start Date Job End Date retired Not on file Not on file Not on file documented as of this encounter Plan of Treatment Not on file documented as of this encounter Procedures Procedure Name Priority Date/Time Associated Diagnosis Comments SCAN - RADIOLOGY/IMAGING 07/18/2021 documented in this encounter Results * SCAN - RADIOLOGY/IMAGING (07/18/2021) Anatomical Region Laterality Modality Other us Provider Scanning Final Result documented in this encounter Visit Diagnoses Not on filedocumented in this encounter Care Teams Resolution Specialist Relationship Specialty Start Date End Date Lui Vazquez MD PCP - General Family Medicine 07/08/18 Jarrod Josue MD Consulting Physician Cardiology 03/01/20 [place] [id number] [place] [address] Consulting Physician General Surgery 04/10/20 documented as of this encounter
--- OUTSIDE RECORDS SUMMARY | 2024-04-21 08:04 | XMS_ITS | CONTINUITY OF CARE DOCUMENT ---
Author Name juan carlos, juan carlos Address Unknown Organization [facility] Address [address] [address] [place] [address] Phone [phone] Care Team Providers Care Safe Technician Name Role Phone Jayden Suazo MD Unavailable [phone] SUSANA VILLEGAS, SHAMIR F Unavailable SUSANA VILLEGAS, SHAMIR F Unavailable PROBLEMS Condition Status Date Provider Notes CAD - 10/23 LAD - LIBERTE active Jayden Suazo MD Hypercholesterolemia active Rosalba Xochitl HTN-10/28 ECHO LOPEZ DYS EF 55 active ? Mignon Blunt CAROTID-10/28 CAROTID NEG completed - Jayden arias MD Sinus bradycardia active Jayden Suazo MD LEG PAIN - NML KASIE's 02/2008 active Clari Fry Sleep apnea, obstructive, se raquel - on CPAP active Jayden Suazo MD Atrial fibrillation, paroxysmal active Jayden Suazo MD Obesity active Jayden Suazo MD Carotid artery stenosis, rig ht ECA, mild active Jayden Suazo MD Mitral regurgitation, moderate active Tanya Fry ENCOUNTERS Date Type Provider Location Encounter Diag nosis - In-person encounter Office Visit Jayden Suazo MD [facility] - In-person encounter Office Visit Jayden Suazo MD [facility] Mitral regurgitation, moderate - In-person encounter Office Visit Jayden Suazo MD [facility] CAD - 10/23 LAD - LIBERTECAROTID-10/28 CAROTID NEGSinus bradycardiaLEG PAIN - NML KASIE's 02/2008Sleep apnea, obstructive, severe - on CPAPAtrial fibrillation, paroxysmalObesityCarotid artery stenosis, right ECA, mild - In-person encounter Office Visit Jayden Suazo MD [facility] CAD - 10/23 LAD - LIBERTESinus bradycardiaSleep apnea, obstructive, severe - on CPAP - In-person encounter Office Visit Jayden Suazo MD [facility] - In-person encounter Office Visit Jayden Suazo MD [facility] - In-person encounter Office Visit Jayden Sauzo MD [facility] HTN-10/28 ECHO LOPEZ DYS EF 55 - In-person encounter Office Visit Jayden Suazo MD [facility] Atrial fibrillation, paroxysmal - In-person encounter Office Visit Jayden Suazo MD [facility] - In-person encounter Office Visit Jayden Suazo MD [facility] - In-person encounter Office Visit Jayden Suazo MD [facility] - In-person encounter Office Visit Jayden Suazo MD [facility] - In-person encounter Office Visit Jayden Suazo MD [facility] Sleep apnea, obstructive, severe - on CPAP - In-person encounter Office Visit Jayden Suazo MD [facility] - In-person encounter Office Visit Jayden Suazo MD [facility] - In-person encounter Office Visit Jayden Suazo MD [facility] - In-person encounter Office Visit Jayden Suazo MD [facility] - In-person encounter Office Visit Jayden Suazo MD [facility] Sinus bradycardiaLEG PAIN - NML KASIE's 02/2008 - In-person encounter Office Visit Jayden Suazo MD [facility] HTN-10/28 ECHO LOPEZ DYS EF 55CAROTID-10/28 CAROTID NEG - In-person encounter Office Visit Jayden Suazo MD [facility] CAD - 10/23 LAD - LIBERTEHypercholesterolemiaHTN -10/28 ECHO LOPEZ DYS EF 55 VITAL SIGNS Date Observation Value Provider Body Mass Index (Ratio) 39.02 kg/m2 Dre song Fry blood pressure, diastolic, left arm 72 mm [Hg] Kassidy Block blood pressure, systolic, left arm 134 mm [Hg] Kassidy Block blood pressure, diastolic, right arm 70 m m[Hg] Kassidy Block blood pressure, systolic, right arm 138 m m[Hg] Kassidy Block pulse rate 58 /min Kassidy Block blood pressure, diastolic 70 mm[Hg] Br ittany Block blood pressure, systolic 138 mm[Hg] Lou ttany Block oxygen saturation, oximetry 97 % Kassidy Block respiratory rate E&M 16 /min [facility] E&M 272 [lb_av] Kassidy Block height E&M 70 [in_i] Kassidy Block Body Mass Index (Ratio) 40.29 kg/m2 Dre Fry blood pressure, diastolic 86 mm[Hg] Fartun Castillo blood pressure, systolic 142 mm[Hg] Yumiko Castillo oxygen saturation, oximetry 97 % Ilda Castillo respiratory rate E&M 18 /min Venecia Castillo pulse rate 63 /min Ilda hickman weight E&M 280.8 [lb_av] Ilda knutson height E&M 70 [in_i] Ilda hickman Body Mass Index (Ratio) 40.03 kg/m2 Dre Fry blood pressure, resting Yes Jayden Amanda Suazo MD blood pressure, cuff size regular Araceli Rivero blood pressure, diastolic 80 mm[Hg] Araceli baltazar Rivero blood pressure, systolic 130 mm[Hg] Jamal jacqueline Mat oxygen saturation, oximetry 98 % Grace Mat respiratory rate E&M 16 /min Grace Mat pulse rate 60 /min Gracemartina Rivero weight E&M 279 [lb_av] Grace Mat height E&M 70 [in_i] Grace Mat blood pressure, diastolic 81 mm[Hg] Fartun Kelleyenson blood pressure, systolic 137 mm[Hg] Yumiko Kelleyenson pulse rate 74 /min Ilda Mckenzie dinamikey oxygen saturation, oximetry 96 % Ilda Kelleyenson respiratory rate E&M 16 /min Venecia Castillo Body Mass Index (Ratio) 39.45 kg/m2 Kathyroberto Castillo weight E&M 275 [lb_av] Ilda Mckenzie dinamikey blood pressure, diastolic, left arm 85 mm [Hg] Kailyn Corral blood pressure, systolic, left arm 129 mm [Hg] Kailyn Corral blood pressure, diastolic, right arm 83 m m[Hg] Kailyn Corral blood pressure, systolic, right arm 126 m m[Hg] Kailyn Corral blood pressure, diastolic 85 mm[Hg] Ri beny Corral blood pressure, systolic 129 mm[Hg] Lindsey yumiko Corral Body Mass Index (Ratio) 39.88 kg/m2 Marielos grayson Corral pulse rate 88 /min Kailyn Corral oxygen saturation, oximetry 98 % Kailyn Corral respiratory rate E&M 15 /min Kailyn Corral weight E&M 278 [lb_av] Kailyn Corral blood pressure, diastolic 73 mm[Hg] An nigel Wills blood pressure, systolic 133 mm[Hg] Ane atribailee Wills Body Mass Index (Ratio) 40.03 kg/m2 Anea juan Johann pulse rate 83 /min Aneatris Brown oxygen saturation, oximetry 97 % Aneatris Johann respiratory rate E&M 17 /min Aneatri s Johann weight E&M 279 [lb_av] Aneatrjuan [facility] Body Mass Index (Ratio) 39.46 kg/m2 Schneider i Vy blood pressure, diastolic 89 mm[Hg] Ke danoi Vy blood pressure, systolic 138 mm[Hg] Madelyn Mcclellan pulse rate 61 /min Shannon manzano oxygen saturation, oximetry 98 % Shannon Mcclellan respiratory rate E&M 17 /min Shannon garcia weight E&M 274 [lb_av] Shannon Quiros lder blood pressure, diastolic, left arm 74 mm [Hg] Farhat Childs RN blood pressure, systolic, left arm 136 mm [Hg] Farhat Childs RN blood pressure, diastolic, right arm 88 m m[Hg] Farhat Childs RN blood pressure, systolic, right arm 152 m m[Hg] Farhat Childs RN blood pressure, diastolic 74 mm[Hg] Ck Childs RN blood pressure, systolic 136 mm[Hg] Farhat Childs RN pulse rate 70 /min Farhat Childs RN oxygen saturation, oximetry 98 % Farhat Childs RN respiratory rate E&M 16 /min Farhat skinner RN Body Mass Index (Ratio) 39.75 kg/m2 Farhat Childs RN weight E&M 276 [lb_av] Farhat Childs RN blood pressure, diastolic, left arm 97 mm [Hg] Farhat Childs RN blood pressure, systolic, left arm 147 mm [Hg] Farhat Childs RN blood pressure, diastolic, right arm 87 m m[Hg] Farhat Childs RN blood pressure, systolic, right arm 151 m m[Hg] Farhat Childs RN blood pressure, diastolic 97 mm[Hg] Ck harini Childs RN blood pressure, systolic 147 mm[Hg] Farhat Childs RN pulse rate 68 /min Farhat Childs DIAN oxygen saturation, oximetry 98 % Farhat Childs DIAN respiratory rate E&M 18 /min Farhat aguilarabilee BIGGS Body Mass Index (Ratio) 38.30 kg/m2 Farhat Childs DIAN weight E&M 266 [lb_av] Farhat Childs RN height E&M 70 [in_i] Farhat Childs DIAN blood pressure, diastolic, left arm 80 mm [Hg] Miguel A Mir blood pressure, systolic, left arm 150 mm [Hg] Miguel A Mir blood pressure, diastolic, right arm 80 m m[Hg] Miguel A Mir blood pressure, systolic, right arm 140 m m[Hg] Amosyejonathan Mir blood pressure, diastolic 80 mm[Hg] Little blood pressure, systolic 150 mm[Hg] Amos Mir pulse rate 72 /min Amosyejonathan Mir oxygen saturation, oximetry 97 % Miguel A Mir respiratory rate E&M 16 /min Amosyejonathan Mir weight E&M 270 [lb_av] Miguel A Mir blood pressure, diastolic 72 mm[Hg] Retanaeaharini Mir blood pressure, systolic 135 mm[Hg] Den yean Mir pulse rate 16 /min Miguel A Mir oxygen saturation, oximetry 96 % Miguel A Mir respiratory rate E&M 16 /min Amosjeannettejonathan Mir weight E&M 263 [lb_av] Amoslisseth Mir blood pressure, diastolic, left arm 77 mm [Hg] Farhat Childs RN blood pressure, systolic, left arm 133 mm [Hg] Farhat Childs RN blood pressure, diastolic, right arm 91 m m[Hg] Farhat Childs RN blood pressure, systolic, right arm 137 m m[Hg] Farhat Childs RN blood pressure, diastolic 77 mm[Hg] Ck Childs RN blood pressure, systolic 133 mm[Hg] Farhat Childs RN pulse rate 60 /min Farhat Childs RN oxygen saturation, oximetry 98 % Farhat Childs RN respiratory rate E&M 18 /min Farhat skinner RN weight E&M 262 [lb_av] Farhat Childs RN blood pressure, diastolic, left arm 80 mm [Hg] Dea O'Veto blood pressure, systolic, left arm 142 mm [Hg] Dea O'Veto blood pressure, diastolic, right arm 84 m m[Hg] Dea O'Veto blood pressure, systolic, right arm 145 m m[Hg] Dea O'Veto blood pressure, diastolic 84 mm[Hg] Fartun duarte O'Veto blood pressure, systolic 145 mm[Hg] Yumiko mackenzie O'Veto pulse rate 71 /min Dea O'Veto oxygen saturation, oximetry 98 % Dea O'Veto respiratory rate E&M 18 /min Dea O'Veto weight E&M 253 [lb_av] Dea O'Veto blood pressure, diastolic, left arm 81 mm [Hg] Bruce Beltran blood pressure, systolic, left arm 129 mm [Hg] Bruce Manacop blood pressure, diastolic, right arm 79 m m[Hg] Bruce Man[place]op blood pressure, systolic, right arm 147 m m[Hg] Bruce [place] blood pressure, diastolic 79 mm[Hg] Evelia seph [place] blood pressure, systolic 147 mm[Hg] Santi eph [place] pulse rate 79 /min Bruce Man[place] oxygen saturation, oximetry 97 % Bruce Man[place]op respiratory rate E&M 16 /min Bruce Man[place] weight E&M 271 [lb_av] Bruce Manacop blood pressure, diastolic, left arm 86 mm [Hg] Bruce Manacop blood pressure, systolic, left arm 129 mm [Hg] Bruce Man[place]op blood pressure, diastolic, right arm 84 m m[Hg] Bruce Man[place]op blood pressure, systolic, right arm 134 m m[Hg] Bruce Man[place] blood pressure, diastolic 84 mm[Hg] Evelia seph [place] blood pressure, systolic 134 mm[Hg] Santi eph [place] pulse rate 76 /min Bruce Manacop oxygen saturation, oximetry 95 % Bruce Manacop respiratory rate E&M 16 /min Bruce Manacop weight E&M 264 [lb_av] Bruce Manacop blood pressure, diastolic 76 mm[Hg] Ck Childs RN blood pressure, systolic 121 mm[Hg] Farhat Childs RN pulse rate 73 /min Farhat Childs RN oxygen saturation, oximetry 95 % Farhat Childs RN respiratory rate E&M 18 /min Farhat skinner RN weight E&M 263 [lb_av] Farhat Childs RN blood pressure, diastolic 69 mm[Hg] Evelia seph [place] blood pressure, systolic 110 mm[Hg] Santi eph [place] pulse rate 64 /min Bruce Manacop oxygen saturation, oximetry 98 % Bruce Manacop respiratory rate E&M 16 /min Bruce Man[place] weight E&M 262 [lb_av] Bruce Manacop blood pressure, diastolic 96 mm[Hg] Ck schuler Childs RN blood pressure, systolic 144 mm[Hg] Farhat Childs RN pulse rate 54 /min Farhat Childs RN oxygen saturation, oximetry 99 % Farhat Sernas RN respiratory rate E&M 18 /min Farhat skinner RN weight E&M 257 [lb_av] Farhat Sernas RN blood pressure, diastolic, left arm 67 mm [Hg] Farhat Sernas RN blood pressure, systolic, left arm 122 mm [Hg] Farhat Sernas RN blood pressure, diastolic, right arm 83 m m[Hg] Farhat Sernas RN blood pressure, systolic, right arm 127 m m[Hg] Farhat Sernas RN pulse rate 63 /min Farhat Sernas RN oxygen saturation, oximetry 98 % Farhat Sernas RN respiratory rate E&M 16 /min Farhat aguilars RN weight E&M 260 [lb_av] Farhat Sernas RN blood pressure, diastolic 85 mm[Hg] Loni Odell MA blood pressure, systolic 131 mm[Hg] aHi Odell MA pulse rate 54 /min Alanna Odell MA oxygen saturation, oximetry 96 % Alanna Odell MA respiratory rate E&M 20 /min Alanna Odell MA weight E&M 265 [lb_av] Alanna Odell MA ALLERGIES Allergy Name Onset Date Reaction Criticality Status METOPROLOL Extreme fatigue Low Criticality acti ve GENERIC ACEON-BMN BRAND NAME ONL Y; GENERIC GIVES HIM RASH Low Criticality active RESULTS Date Observation Value Provider Reference Range Interpretation Location LDL cholesterol, serum 99 mg/dL [facility] very low density lipoproteins 31.8 mg/dL [facility] 5.0 - 40.0 LDL/HDL (low-density lipoprotein/high-den sity lipoprotein) [facility], beta, serum, point, quantitative, calculated 99.2 (?) [facility] 0.0 - 100.0 HDL cholesterol, serum 46.0 mg/dL [facility] 35.0 - 55.0 cholesterol, serum 177.0 mg/dL [facility] 0.0 - 200.0 triglyceride, serum, fasting 159.0 mg/dL [facility] 0.0 - 150.0 High albumin/globulin ratio, serum 2.0 g/dL [facility] 1.1 - 2.5 globulin, serum 2.3 [facility] 2.3 - 3.8 albumin, serum 4.6 g/dL [facility] 3.5 - 5.2 aspartate aminotransferase (SGOT), serum 33.0 1/L [facility] 0.0 - 40.0 alkaline phosphatase, serum 50.0 1/L [facility] 40.0 - 130.0 alanine aminotransferase (SGPT), serum 34.0 1/L [facility] 0.0 - 41.0 protein, total, serum 6.9 g/dL [facility] - 8.7 bilirubin, serum, total 0.6 mg/dL [facility] 0.0 - 1.2 hemoglobin A1C, blood, as % of total hemoglobin 6.3 % [facility] 4.[facility] [address].6 [facility] thyroid stimulating hormone, serum 1.590 u[IU]/mL [facility] international normalized ratio (INR) 1.0 [facility] alanine aminotransferase (SGPT), serum 33 1/L [facility] aspartate aminotransferase (SGOT), serum 31 1/L [facility] creatinine, serum 0.88 mg/dL [facility] potassium, serum 5.2 mmol/L [facility] sodium, serum 143 mmol/L [facility] platelet count 186 10*3/uL [facility] hematocrit, blood 44.0 % [facility] hematocrit, blood 43.5 % [facility] creatinine, serum 0.85 mg/dL [facility] potassium, serum 4.6 mmol/L [facility] sodium, serum 141 mmol/L [facility] alkaline phosphatase, serum 60 1/L [facility] alanine aminotransferase (SGPT), serum 42 1/L [facility] aspartate aminotransferase (SGOT), serum 16 1/L [facility] triglyceride, serum, fasting 259 mg/dL [facility] HDL cholesterol, serum 46 mg/dL [facility] LDL cholesterol, serum 50 mg/dL [facility] cholesterol, serum 148 mg/dL [facility] HISTORY OF MEDICATION USE Medication Status Instructions Dates Provider Indications Com ments PERINDOPRIL ERBUMINE 2 MG ORAL TABLET active Take two tabs once a day Cher Wills RN XARELTO 20 MG TABLET 20MG active TAKE 1 TABLET BY MOUTH DAILY WITH THE EVENING MEAL Ferny Torres Stop Plavix 07/04/18 PERINDOPRIL ERBUMINE 4 MG ORAL TABLET completed Take 1 tablet orally once daily - Cher Wills RN VIAGRA 50 MG ORAL TABLET completed ONE DAILY PRN - Ilda CHAPINZEAmanda CD 120 MG ORAL CAPSULE EXTENDED RELEASE 24 HOUR completed daily - Jayden Suazo MD MEDROL TABLET completed take as directed - Ilda Castillo METOPROLOL TARTRATE 50 MG ORAL TABLET completed 1/2 TABLE TWICEDAILY - Jayden Suazo MD LOPRESSOR 50 MG ORAL TABLET completed 1 tablet by mouth twice daily - Dea O'Veto NEXIUM 40 MG ORAL CAPSULE DELAYED RELEASE active ONE TAB. DAILY Jayden Suazo MD ZANTAC 300 MG ORAL TABLET completed once daily - Bruce Sebaski LOPRESSOR 50 MG ORAL TABLET completed one tablet twice a day. - Jayden Suazo MD ASPIRIN 81 MG ORAL TABLET completed ONE TAB. DAILY - Farhat Childs RN NEXIUM 40 MG ORAL CAPSULE DELAYED RELEASE completed ONE TAB. DAILY - Evelia Sierra FISH OIL 1000 MG ORAL CAPSULE completed once daily - Shannon Mcclellan ROSUVASTATIN CALCIUM 20 MG ORAL TABLET active One tablet daily Jayden Suazo MD PERINDOPRIL ERBUMINE 4 MG ORAL TABLET completed 1 tablet daily - Ilda Castillo PLAVIX 75 MG ORAL TABLET completed ONE TAB. DAILY - Jayden Suazo MD SOCIAL HISTORY Date Observation Value Provider social history revie gloria E&M reviewed - no changes required Jayden Suazo MD physical exercise, frequency, days per week no [facility] alcohol counseling yes [facility] In the past 3 months , have you been waking up wanting to use drugs? (CAGE substance use question #4) N [facility] In the past 3 months , have you felt guilty or bad about using drugs? (CAGE substance use question #3) N [facility] In the past 3 months , has anyone annoyed you by telling you to cut down or stop using drugs? (CAGE substance use question #2) N [facility] In the past 3 months , have you felt you should cut down or stop using drugs?(CAGE substance use question #1) N [facility] alcohol use, average drinks per day social basis only [facility] alcohol use yes [facility] caffeine use, averag e drinks per day 1+ [facility] drug use no [facility] passive cigarette sm dinh exposure no Kassidy Murdock smoking status Never smoker Kassidy platt social history [facility] E&M reviewed - no changes required Jayden Suazo MD physical exercise, frequency, days per week no Ilda Castillo alcohol counseling yes Ilda Castillo In the past 3 months , have you been waking up wanting to use drugs? (CAGE substance use question #4) N Ilda Castillo In the past 3 months , have you felt guilty or bad about using drugs? (CAGE substance use question #3) N Ilda Castillo In the past 3 months , has anyone annoyed you by telling you to cut down or stop using drugs? (CAGE substance use question #2) N Ilda Castillo In the past 3 months , have you felt you should cut down or stop using drugs?(CAGE substance use question #1) N Ilda Castillo alcohol use, average drinks per day social basis only Ilda Castillo alcohol use yes Ilda hickman caffeine use, averag e drinks per day 1+ Ilda Castillo drug use no Ilda hickman passive cigarette sm dinh exposure no Ilda Castillo smoking status Never smoker Ilda Nathanmeng social history [facility] E&M reviewed - no changes required Jayden Suazo MD social history E&M Marital Statu s: Tito alonzo with family/friends E thnicity: Smoking History: P atanthony has never smoked. Jayden Suazo MD physical exercise, frequency, days per week no Grace Rivero alcohol counseling yes Deon Fry In the past 3 months , have you been waking up wanting to use drugs? (CAGE substance use question #4) Harini Rivero In the past 3 months , have you felt guilty or bad about using drugs? (CAGE substance use question #3) Harini Rivero In the past 3 months , has anyone annoyed you by telling you to cut down or stop using drugs? (CAGE substance use question #2) N Gracejacqueline Rivero In the past 3 months , have you felt you should cut down or stop using drugs?(CAGE substance use question #1) N Grace Rivero alcohol use, average drinks per day social basis only Grace Rivero alcohol use yes Grace Rivero caffeine use, averag e drinks per day 1+ Jayden Suazo MD drug use no Grace Mat passive cigarette sm dinh exposure no Gracejacqueline Rivero smoking status Never smoker Grace Rivero social history E&M Marital Statu s: Tito alonzo with family/friends E thnicity: Smoking History: P shantanu has never smoked. Deon Fry social history revie wed E&M reviewed - no changes required Deon Fry physical exercise, frequency, days per week no Ilda Castillo alcohol counseling no Ilda Castillo In the past 3 months , have you been waking up wanting to use drugs? (CAGE substance use question #4) Harini Castillo In the past 3 months , have you felt guilty or bad about using drugs? (CAGE substance use question #3) Harini Castillo In the past 3 months , has anyone annoyed you by telling you to cut down or stop using drugs? (CAGE substance use question #2) N Ilda Castillo In the past 3 months , have you felt you should cut down or stop using drugs?(CAGE substance use question #1) N Ilda Castillo alcohol use, average drinks per day social basis only Ilda Castillo alcohol use yes Ilda hickman caffeine use, averag e drinks per day yes Ilda Castillo drug use no Ilda hickman passive cigarette sm dinh exposure no Ilda Castillo smoking status Never smoker Ilda James smoking status Never smoker Mignon Fonseca social history revtasha castro E&M reviewed - no changes required Mignon Fonseca physical exercise, frequency, days per week no Kailyn Corral alcohol counseling no Kailyn Patel Teresa In the past 3 months , have you been waking up wanting to use drugs? (CAGE substance use question #4) N Kailyn Corral In the past 3 months , have you felt guilty or bad about using drugs? (CAGE substance use question #3) N Kailyn Corral In the past 3 months , has anyone annoyed you by telling you to cut down or stop using drugs? (CAGE substance use question #2) N Kailyn Corral In the past 3 months , have you felt you should cut down or stop using drugs?(CAGE substance use question #1) N Kailyn Corral alcohol use, average drinks per day social basis only Kailyn Corral caffeine use, averag e drinks per day yes Kailyn Corral drug use no Kailyn Corral passive cigarette sm dinh exposure no Kailyn Corral physical exercise, frequency, days per week no Mignonher Fonseca alcohol counseling no Mignon espinoza In the past 3 months , have you been waking up wanting to use drugs? (CAGE substance use question #4) N Mignon In the past 3 months , have you felt guilty or bad about using drugs? (CAGE substance use question #3) N Mignon In the past 3 months , has anyone annoyed you by telling you to cut down or stop using drugs? (CAGE substance use question #2) N Mignon In the past 3 months , have you felt you should cut down or stop using drugs?(CAGE substance use question #1) N Mignon Raymundo alcohol use, average drinks per day social basis only [facility] caffeine use, averag e drinks per day yes Mignon Blunt drug use no Mignon Blunt passive cigarette sm dinh exposure no Mignon Blunt smoking status Never smoker Mignon Blunt social history revie wed E&M reviewed - no changes required Mignon Raymundo social history revie wed E&M reviewed Farhat Childs RN alcohol counseling no Shannon Savi roa In the past 3 months , have you been waking up wanting to use drugs? (CAGE substance use question #4) N Shannon Mcclellan In the past 3 months , have you felt guilty or bad about using drugs? (CAGE substance use question #3) N Shannon Mcclellan In the past 3 months , has anyone annoyed you by telling you to cut down or stop using drugs? (CAGE substance use question #2) Harini Mcclellan In the past 3 months , have you felt you should cut down or stop using drugs?(CAGE substance use question #1) N Shannon Mcclellan drug use no Farhat Childs RN passive cigarette sm dinh exposure no Farhat Childs RN social history revie wed E&M reviewed Farhat Childs RN smoking status never smoker Farhat Childs RN drug use none Jayden Suazo MD social history revie wed E&M reviewed Jayden Suazo MD social history revie wed E&M reviewed Farhat Childs RN social history revie wed E&M reviewed Farhat Childs RN social history revie wed E&M reviewed Farhat Childs RN social history revie wed E&M reviewed Jayden Suazo MD social history E&M Marital Statu s: L chrei with family/friends E thnicity: Jayden Suazo MD social history revie wed E&M reviewed Farhat Childs RN social history revie wed E&M reviewed Farhat Childs RN social history revie wed E&M reviewed Farhat Childs RN social history E&M Marital Statu s: L cheri with family/friends E thnicity: Jayden Suazo MD social history revie wed E&M reviewed Farhat Childs RN social history E&M Marital Statu s: L cheri with family/friends E thnicity: CaucasianMarital Status: L cheri with family/friends E thnicity: Jayden Suazo MD social history revie wed E&M reviewed Farhat Childs RN physical exercise, frequency, days per week no [facility] caffeine use, averag e drinks per day yes [facility] alcohol use, average drinks per day social basis only [facility] smoking status Non-smoker [facility] FUNCTIONAL STATUS Date Observation Value Provider HRA, CV Assess/Plan, Angina (inactive) Management Plan continue current therapy Jayden Suazo MD HRA, CV Assess/Plan, Angina (inactive) Management Plan continue current therapy Jayden Suazo MD HRA, CV Assess/Plan, Angina (inactive) Management Plan continue current therapy Jayden Suazo MD MENTAL STATUS Date Observation Value Provider assessment of judgme nt and insight E&M Alert and oriented to time, place and person. Mood and affect are normal. Farhat Childs RN assessment of judgme nt and insight E&M Alert and oriented to time, place and person. Mood and affect are normal. Farhat Childs RN assessment of judgme nt and insight E&M Alert and oriented to time, place and person. Mood and affect are normal. Jayden Suazo MD assessment of judgme nt and insight E&M Alert and oriented to time, place and person. Mood and affect are normal. Farhat Childs RN assessment of judgme nt and insight E&M Alert and oriented to time, place and person. Mood and affect are normal. Fahrat Childs RN assessment of judgme nt and insight E&M Alert and oriented to time, place and person. Mood and affect are normal. Farhat Childs RN assessment of judgme nt and insight E&M Alert and oriented to time, place and person. Mood and affect are normal. Jayden Suazo MD assessment of judgme nt and insight E&M Alert and oriented to time, place and person. Mood and affect are normal. Jayden Suazo MD assessment of judgme nt and insight E&M Alert and oriented to time, place and person. Mood and affect are normal. Farhat Childs RN assessment of judgme nt and insight E&M Alert and oriented to time, place and person. Mood and affect are normal. Farhat Childs RN assessment of judgme nt and insight E&M Alert and oriented to time, place and person. Mood and affect are normal. Farhat Childs RN assessment of judgme nt and insight E&M Alert and oriented to time, place and person. Mood and affect are normal. Farhat Childs RN assessment of judgme nt and insight E&M Alert and oriented to time, place and person. Mood and affect are normal. Farhat Childs RN FAMILY HISTORY Family Member Condition Mother Family History of Ot her Cancer Father Family History of Hy pertension: Mother Family History of Di abetes: Mother Family History of Co ronary Artery Disease: Mother Family History of Hy pertension: Father Family History of Co ronary Artery Disease: INSURANCE PROVIDERS Payer name Policy type / Coverage type [facility] [id number] ADVANCE DIRECTIVES Name Date DISCUSSED - NO DECISION MADE TREATMENT PLAN Date Name Performer Cardiology:Orders: C omplete Echo (CPT-80124) Deon Fry Cardiology:His updat ed medication list for this problem includes: Rosuvastatin Calcium 20 Mg Oral Tablet (Rosuvastatin calcium) ..... One tablet daily Deon Fry Cardiology:BP today: 138/70 P rior BP: 142/86 (07/05/2017) His updated medication list for this problem includes: Aceon 4 Mg Oral Tablet (Perindopril erbumine) ..... One tablet daily Deon Fry Cardiology:He denies chest pain or SOB. The following medications were stopped: Plavix 75 Mg Oral Tablet (Clopidogrel bisulfate) ..... One tab. daily His updated medication list for this problem includes: Aceon 4 Mg Oral Tablet (Perindopril erbumine) ..... One tablet daily [facility] Cardiology:Pt had an other episode of Afib, again the day after drinking alcohol. He was treated at [facility]. We discussed anticoagulation again and he's willing to go on anticoagulation. Will stop Plavix and start Xarelto. Will obtain a f/u echo. He denies chest pain or SOB. [facility] Cardiology:BP today: 142/86 P rior BP: 130/80 (04/27/2016) His updated medication list for this problem includes: Aceon 4 Mg Oral Tablet (Perindopril erbumine) ..... One tablet daily [facility] Cardiology:The patie nt is using CPAP on a regular basis. The patient has been benefiting from therapy and should continue use. [facility] Cardiology:LDL was 9 9 and we will switch from Simvastatin to Crestor 20mg daily. [facility] Cardiology:Echo last year showed moderate MR and we will obtain a f/u echo. [facility] Cardiology:No chest pain or SOB. LDL was 99 and we will switch from Simvastatin to Crestor 20mg daily. His updated medication list for this problem includes: Aceon 4 Mg Oral Tablet (Perindopril erbumine) ..... One tablet daily Plavix 75 Mg Oral Tablet (Clopidogrel bisulfate) ..... One tab. daily [facility] Cardiology Follow up :Orders: S NOMED-CT: [id number] Current Medications Documented ([id number]-[id number]) L IPID PANEL (7600) H EMOGLOBIN A1c (496) H EPATIC FUNCTION PANEL (81204) [facility] Cardiology Follow up:Weight loss and exercise advised. [facility] Cardiology Follow up :Orders: S NOMED-CT: [id number] Current Medications Documented ([id number]) L IPID PANEL (7600) H EMOGLOBIN A1c (496) H EPATIC FUNCTION PANEL (03035) [facility] Cardiology Follow up :BP today: 130/80 P rior BP: 137/81 (04/22/2015) His updated medication list for this problem includes: Aceon 4 Mg Oral Tabs (Perindopril erbumine) ..... Once daily [facility] Cardiology Follow up:No dizzines s or fatigue. [facility] Cardiology Follow up :Orders: C arotid Duplex Bilateral (CPT-99378) [facility] Cardiology Follow up :Orders: S leep Study Home (CPT-98555) [facility] Cardiology Follow up :No chest pain or SOB. On Plavix. Orders: S TR - Adenosine (CPT-87952) C omplete Echo (CPT-03675) [facility] Cardiology Follow up :Pt had an episode of Afib, the day after drinking alcohol. He went to the ER at [place] and the Afib resolved spontaneously. We discussed anticoagulation recommendations ([id number] score is 2). At this time, he prefers to stay off anticoagulation. His updated medication list for this problem includes: Aceon 4 Mg Oral Tabs (Perindopril erbumine) ..... Once daily Plavix 75 Mg Tabs (Clopidogrel bisulfate) ..... One tab. daily [facility] Cardiology:CHOL: 148 (12/13/2007) LDL: 50 (12/13/2007) HDL: 46 (12/13/2007) T (12/13/2007) His updated medication list for this problem includes: Simvastatin 20 Mg Oral Tabs (Simvastatin) ..... Take 1 tab daily [facility] Cardiology:BP today: 137/81 P rior BP: 129/85 (03/26/2014) The following medications were removed from the medication list: Perindopril Erbumine 4 Mg Tabs (Perindopril erbumine) ..... 1 tablet daily His updated medication list for this problem includes: Aceon 4 Mg Oral Tabs (Perindopril erbumine) ..... Once daily [facility] Cardiology:No chest pain or SOB. Deon [facility] Cardiology:No palpit ations. H is updated medication list for this problem includes: Plavix 75 Mg Tabs (Clopidogrel bisulfate) ..... One tab. daily Deon Fry 6 month follow-up: H is updated medication list for this problem includes: Plavix 75 Mg Tabs (Clopidogrel bisulfate) ..... One tab. daily Aceon 4 Mg Tabs (Perindopril erbumine) ..... Once daily Simcor 500-20 Mg Tb24 (Niacin-simvastatin) ..... One tab. daily Aspirin 81 Mg Tabs (Aspirin) ..... One tab. daily Lopressor 50 Mg Tabs (Metoprolol tartrate) ..... 1 tablet by mouth twice daily Jayden Suazo MD 6 month follow-up: H is updated medication list for this problem includes: Plavix 75 Mg Tabs (Clopidogrel bisulfate) ..... One tab. daily Aceon 4 Mg Tabs (Perindopril erbumine) ..... Once daily Simcor 500-20 Mg Tb24 (Niacin-simvastatin) ..... One tab. daily Aspirin 81 Mg Tabs (Aspirin) ..... One tab. daily BP today: 134/84 Prior BP: 121/76 (06/20/2008) C ardiac Cath: 90% stenosis of the mid-LAD. Hypokinesis of the anterolateral segment with EF of 50%. No significant renal artery stenosis. 20% stenosis of the RCA. (11/08/2007) C ardiac Cath Comments: Successful stenting of the mid LAD using a 3.0 x 16mm Liberte stent. (11/08/2007) C arotid Doppler/Duplex: Mild smooth atherosclerotic plaque in the proximal Right ECA (<50%). O therwise minimal smooth intimal thickening. Antegrade flow in both vertebrals. (12/14/2007) C HOL: 148 (12/13/2007) LDL: 50 (12/13/2007) HDL: 46 (12/13/2007) T (12/13/2007) Jayden Suazo MD routine: H is updated medication list for this problem includes: Aceon 4 Mg Tabs (Perindopril erbumine) ..... Once daily Aspirin 81 Mg Tabs (Aspirin) ..... One tab. daily BP today: 121/76 P rior BP: 110/69 (03/14/2008) Labs Reviewed: C hol: 148 (12/13/2007) HDL: 46 (12/13/2007) LDL: 50 (12/13/2007) T (12/13/2007) Jayden Suazo MD routine: H is updated medication list for this problem includes: Plavix 75 Mg Tabs (Clopidogrel bisulfate) ..... One tab. daily Aspirin 81 Mg Tabs (Aspirin) ..... One tab. daily Carotid Duplex Scan: M ild smooth atherosclerotic plaque in the proximal Right ECA (<50%). O therwise minimal smooth intimal thickening. Antegrade flow in both vertebrals. (12/14/2007) & #13;Echocardiogram: T he left ventricular chamber size is normal. Borderline left ventricular hypertrophy. Mild distal septal h ypokinesis with normal left ventricular function. LV EF is estimated at 50%. N o clinically significant valvular abnormalities. (12/14/2007) Jayden Suazo MD routine: H is updated medication list for this problem includes: Plavix 75 Mg Tabs (Clopidogrel bisulfate) ..... One tab. daily Aceon 4 Mg Tabs (Perindopril erbumine) ..... Once daily Aspirin 81 Mg Tabs (Aspirin) ..... One tab. daily Jayden Suazo MD follow-up venous dop pler and holter monitor: O rders: A rterial Duplex Lower Extremity Bilateral (CPT-72114) Jayden Suazo MD follow-up venous dop pler and holter monitor: T he following medications were removed from the medication list: Lopressor 50 Mg Tabs (Metoprolol tartrate) ..... One tablet twice a day. & #13;His updated medication list for this problem includes: Plavix 75 Mg Tabs (Clopidogrel bisulfate) ..... One tab. daily Aceon 4 Mg Tabs (Perindopril erbumine) ..... Once daily Aspirin 81 Mg Tabs (Aspirin) ..... One tab. daily Jayden Suazo MD office visit: H is updated medication list for this problem includes: Plavix 75 Mg Tabs (Clopidogrel bisulfate) ..... One tab. daily Aceon 4 Mg Tabs (Perindopril erbumine) ..... Once daily Aspirin 81 Mg Tabs (Aspirin) ..... One tab. daily Lopressor 50 Mg Tabs (Metoprolol tartrate) ..... One tablet twice a day. Orders: H olter Monitor 24 Hr (CPT-70500) Jayden Suazo MD office visit: H is updated medication list for this problem includes: Plavix 75 Mg Tabs (Clopidogrel bisulfate) ..... One tab. daily Aceon 4 Mg Tabs (Perindopril erbumine) ..... Once daily Simcor 500-20 Mg Tb24 (Niacin-simvastatin) ..... One tab. daily Aspirin 81 Mg Tabs (Aspirin) ..... One tab. daily Lopressor 50 Mg Tabs (Metoprolol tartrate) ..... One tablet twice a day. BP today: 144/96 Prior BP: 131/85 (12/05/2007) C ardiac Cath: 90% stenosis of the mid-LAD. Hypokinesis of the anterolateral segment with EF of 50%. No significant renal artery stenosis. 20% stenosis of the RCA. (11/08/2007) C ardiac Cath Comments: Successful stenting of the mid LAD using a 3.0 x 16mm Liberte stent. (11/08/2007) C arotid Doppler/Duplex: Mild smooth atherosclerotic plaque in the proximal Right ECA (<50%). O therwise minimal smooth intimal thickening. Antegrade flow in both vertebrals. (12/14/2007) C HOL: 148 (12/13/2007) LDL: 50 (12/13/2007) HDL: 46 (12/13/2007) T (12/13/2007) Orders: E KG (CPT-[id number]) Jayden Suazo MD office visit: H is updated medication list for this problem includes: Simcor 500-20 Mg Tb24 (Niacin-simvastatin) ..... One tab. daily BP today: 144/96 Prior BP: 131/85 (12/05/2007) CHOL: 148 (12/13/2007) LDL: 50 (12/13/2007) HDL: 46 (12/13/2007) T (12/13/2007) Jayden Suazo MD office visit: H is updated medication list for this problem includes: Aceon 4 Mg Tabs (Perindopril erbumine) ..... Once daily Aspirin 81 Mg Tabs (Aspirin) ..... One tab. daily Lopressor 50 Mg Tabs (Metoprolol tartrate) ..... One tablet twice a day. BP today: 144/96 P rior BP: 131/85 (12/05/2007) Labs Reviewed: C hol: 148 (12/13/2007) HDL: 46 (12/13/2007) LDL: 50 (12/13/2007) T (12/13/2007) Jayden Suazo MD office visit: H is updated medication list for this problem includes: Plavix 75 Mg Tabs (Clopidogrel bisulfate) ..... One tab. daily Aspirin 81 Mg Tabs (Aspirin) ..... One tab. daily Carotid Duplex Scan: M ild smooth atherosclerotic plaque in the proximal Right ECA (<50%). O therwise minimal smooth intimal thickening. Antegrade flow in both vertebrals. (12/14/2007) E chocardiogram: T he left ventricular chamber size is normal. Borderline left ventricular hypertrophy. Mild distal septal h ypokinesis with normal left ventricular function. LV EF is estimated at 50%. N o clinically significant valvular abnormalities. (12/14/2007) Jayden Suazo MD office visit: H is updated medication list for this problem includes: Plavix 75 Mg Tabs (Clopidogrel bisulfate) ..... One tab. daily Aceon 4 Mg Tabs (Perindopril erbumine) ..... Once daily Simcor 500-20 Mg Tb24 (Niacin-simvastatin) ..... One tab. daily Aspirin 81 Mg Tabs (Aspirin) ..... One tab. daily Lopressor 50 Mg Tabs (Metoprolol tartrate) ..... One tablet twice a day. BP today: / Prior BP: 131/85 (12/05/2007) C ardiac Cath: 90% stenosis of the mid-LAD. Hypokinesis of the anterolateral segment with EF of 50%. No significant renal artery stenosis. 20% stenosis of the RCA. (11/08/2007) C ardiac Cath Comments: Successful stenting of the mid LAD using a 3.0 x 16mm Liberte stent. (11/08/2007) C arotid Doppler/Duplex: Mild smooth atherosclerotic plaque in the proximal Right ECA (<50%). O therwise minimal smooth intimal thickening. Antegrade flow in both vertebrals. (12/14/2007) C HOL: 148 (12/13/2007) LDL: 50 (12/13/2007) HDL: 46 (12/13/2007) T (12/13/2007) Jayden Suazo MD office visit: H is updated medication list for this problem includes: Simcor 500-20 Mg Tb24 (Niacin-simvastatin) ..... One tab. daily BP today: / Prior BP: 131/85 (12/05/2007) C HOL: 148 (12/13/2007) LDL: 50 (12/13/2007) HDL: 46 (12/13/2007) T (12/13/2007) Jayden Suazo MD office visit: H is updated medication list for this problem includes: Plavix 75 Mg Tabs (Clopidogrel bisulfate) ..... One tab. daily Aspirin 81 Mg Tabs (Aspirin) ..... One tab. daily Carotid Duplex Scan: M ild smooth atherosclerotic plaque in the proximal Right ECA (<50%). O therwise minimal smooth intimal thickening. Antegrade flow in both vertebrals. (12/14/2007) E chocardiogram: T he left ventricular chamber size is normal. Borderline left ventricular hypertrophy. Mild distal septal h ypokinesis with normal left ventricular function. LV EF is estimated at 50%. N o clinically significant valvular abnormalities. (12/14/2007) Jayden Suazo MD office visit: H is updated medication list for this problem includes: Aceon 4 Mg Tabs (Perindopril erbumine) ..... Once daily Aspirin 81 Mg Tabs (Aspirin) ..... One tab. daily Lopressor 50 Mg Tabs (Metoprolol tartrate) ..... One tablet twice a day. Prior BP: 131/85 (12/05/2007) Labs Reviewed: C hol: 148 (12/13/2007) HDL: 46 (12/13/2007) LDL: 50 (12/13/2007) T (12/13/2007) Jayden Suazo MD New Pt: H is updated medication list for this problem includes: Simcor 500-20 Mg Tb24 (Niacin-simvastatin) ..... One tab. daily Jayden Suazo MD New Pt: H is updated medication list for this problem includes: Plavix 75 Mg Tabs (Clopidogrel bisulfate) ..... One tab. daily Aceon 4 Mg Tabs (Perindopril erbumine) ..... Once daily Simcor 500-20 Mg Tb24 (Niacin-simvastatin) ..... One tab. daily Aspirin 81 Mg Tabs (Aspirin) ..... One tab. daily Lopressor 50 Mg Tabs (Metoprolol tartrate) ..... One tablet twice a day. B P today: 131/85 Prior BP: / () C ardiac Cath: 90% stenosis of the mid-LAD. Hypokinesis of the anterolateral segment with EF of 50%. No significant renal artery stenosis. 20% stenosis of the RCA. (11/08/2007) C ardiac Cath Comments: Successful stenting of the mid LAD using a 3.0 x 16mm Liberte stent. (11/08/2007) Orders: H EPATIC FUNCTION PANEL (53050) C arotid Duplex Bilateral (CPT-61427) C omplete Echo (CPT-68364) S lee Study (*) Jayden Suazo MD Date Name Complete Echo Complete Echo Carotid Duplex Bilat eral HEPATIC FUNCTION HALL EL HEMOGLOBIN A1c LIPID PANEL Complete Echo Sleep Study Home STR - Adenosine Complete Echo Carotid Duplex Bilat eral Complete Echo STR - Nuclear Complete Echo Arterial Duplex Lowe r Extremity Bilateral Venous Doppler Bilat eral LE Holter Monitor 24 Hr Complete Echo Carotid Duplex Bilat eral HEPATIC FUNCTION HALL EL LIPID PANEL HISTORY OF PROCEDURES Procedure Date Procedure Name Provider Procedure Notes S tatus EKG Jayden Suazo MD completed EKG Jayden Suazo MD completed Stress EKG Joshua Kumar MD complete d Regadenoson, 4 units Jayden Suazo MD completed Cardiolite, 2 units Jayden Suazo MD c ompleted SPECT Images Chucky Hernández MD complet ed EKG Jayden Suazo MD completed SNOMED-CT: [id number] Current Medications Documented Jayden Suazo MD completed EKG Jayden Suazo MD completed SNOMED-CT: [id number] Current Medications Documented Jayden Suazo MD completed EKG Jayden Suazo MD completed ePrescribe - Check t his box if eRx is used Jayden Suazo MD completed EKG Jayden Suazo MD completed EKG Jayden Suazo MD completed EKG Jayden Suazo MD completed
[2024-04-21 09:22] LABS: Basophils Percent Auto 0.4 % (0.2-1.2); Eosinophils Absolute Auto 0.2 K/mm3 (0-0.3); Eosinophils Percent Auto 3.2 % (0-4.4); Hematocrit 42.7 % (42.0-52.0); Hemoglobin 13.3 g/dL (14.0-18.0); Immature Granulocyte Absolute 0.01 K/mm3 (0.00-0.031); Immature Granulocyte Percent A 0.1 % (0-0.5); Lymphocytes Absolute Auto 1.91 K/mm3 (0.9-3.2); Lymphocytes Percent Auto 26.8 % (18.3-44.2); Mean Corpuscular HGB Conc 31.1 g/dl (32-36); Mean Corpuscular Hemoglobin 25.6 pg (26-34); Mean Corpuscular Volume 82.1 fl (80-100); Mean Platelet Volume 9.8 fl (7.4-10.4); Monocytes Absolute Auto 0.6 K/mm3 (0.1-0.6); Monocytes Percent Auto 7.7 % (2.6-8.5); Neutrophils Absolute Auto 4.4 K/mm3 (1.3-6.7); Neutrophils Percent Auto 61.8 % (45.5-73.1); Platelet Count Result 202 k/mm3 (150-375); Red Cell Distribution Width 16.8 % (11.5-14.5); White Blood Count 7.1 K/mm3 (4.5-10.0)
[2024-04-21 09:35] LABS: Alanine Aminotransferase 17 U/L (6-50); Albumin Level 4.5 g/dL (3.5-5.1); Alkaline Phosphatase 52 U/L (38-126); Anion Gap 9 mmol/L (4-12); Aspartate Amino Transferase 22 U/L (17-59); Bilirubin,Total 0.4 mg/dL (0.2-1.3); Blood Urea Nitrogen 14 mg/dL (9-20); Calcium 9.3 mg/dL (8.4-10.2); Carbon Dioxide 23 mmol/L (22-30); Chloride 109 mmol/L (98-107); Cholesterol 111 mg/dL (0-200); Estimated Glomerular Filt Rate > 60; Glucose 116 mg/dL (65-110); HDL Direct 38 mg/dL; Potassium 4.3 mmol/L (3.4-5.0); Sodium 141 mmol/L (137-145); Triglycerides 110 mg/dL (<150)
[2024-04-21 09:46] LABS: LDL Cholesterol Direct 41 mg/dL
[2024-04-21 09:54] LABS: Creatinine Urine 82.4 mg/dL
[2024-04-21 09:59] LABS: MALB Creatinine Ratio 14.2 mg/g (0-30); Microalbumin Urine Random 11.7 mg/L (0-16.7)
[2024-04-21 10:04] LABS: Prostate Specific Antigen 2.8 ng/mL (< OR = 4.0)
== END 2024-04-21 07:55 | disposition home or self-care (01) ==
PROVIDERS: PCP Family Medicine; Visit Provider Physician Assistant Medical
DX: E11.9 Type 2 diabetes mellitus without complications (principal); E78.5 Hyperlipidemia, unspecified; I10 Essential (primary) hypertension; Z12.5 Encounter for screening for malignant neoplasm of prostate
CPT/HCPCS: 36415; 80053; 80061; 82043; 84153; 85025; G0103

== ENCOUNTER 2024-05-29 14:16 | Emergency (ER) | payer MEDICARE, SELFPAY ==
--- NOTE | ~2024-05-29 | XR_ITS ---
CHEST RADIOGRAPH, PA AND LATERAL CLINICAL HISTORY: weak, palpitations . COMPARISON: 04/16/2020 TECHNIQUE: PA and lateral views of the chest. FINDINGS The cardiomediastinal silhouette is unremarkable. The lungs are clear. Visualized osseous structures and soft tissues are unremarkable. IMPRESSION: No focal infiltrate or effusion. Reviewed, dictated and finalized at location A.
--- NOTE | 2024-05-29 14:18 | ECG_ITS ---
Test Date: 2024-05-29 14:21:10 Measurements Intervals Dema Rate: 88 P: 0 MA: 0 QRS: -29 QRSD: 118 T: 12 QT: 376 QTc: 456 Interpretive Statements ATRIAL FIBRILLATION INCOMPLETE RIGHT BUNDLE BRANCH BLOCK BORDERLINE ST-T WAVE ABNORMALITY- ANT/INF LEADS BASELINE ARTIFACT- I, II, III, AVR, AVL, AVF, V2-V5 ABNORMAL ECG No previous ECG available for comparison Electronically Signed On 05-29-2024 14:27:43 CDT by Arnie Thomson D.O.
[2024-05-29 14:19] VITALS: BP 155/106; PULSE 48; RESP 16; TEMP 36.8; O2SAT 99
[2024-05-29 14:32] LABS: Basophils Percent Auto 0.6 % (0.2-1.2); Eosinophils Absolute Auto 0.2 K/mm3 (0-0.3); Eosinophils Percent Auto 2.8 % (0-4.4); Hematocrit 47.8 % (42.0-52.0); Hemoglobin 14.8 g/dL (14.0-18.0); Immature Granulocyte Absolute 0.01 K/mm3 (0.00-0.031); Immature Granulocyte Percent A 0.1 % (0-0.5); Lymphocytes Absolute Auto 2.93 K/mm3 (0.9-3.2); Lymphocytes Percent Auto 42.9 % (18.3-44.2); Mean Corpuscular Hemoglobin 25.7 pg (26-34); Mean Platelet Volume 9.5 fl (7.4-10.4); Monocytes Absolute Auto 0.7 K/mm3 (0.1-0.6); Monocytes Percent Auto 9.7 % (2.6-8.5); Neutrophils Percent Auto 43.9 % (45.5-73.1); Platelet Count Result 210 k/mm3 (150-375); Red Blood Count 5.76 M/mm3 (4.6-6.20); Red Cell Distribution Width 17.7 % (11.5-14.5); White Blood Count 6.8 K/mm3 (4.5-10.0)
[2024-05-29 14:44] LABS: Alanine Aminotransferase 19 U/L (6-50); Albumin Level 4.5 g/dL (3.5-5.1); Alkaline Phosphatase 57 U/L (38-126); Anion Gap 10 mmol/L (4-12); Aspartate Amino Transferase 25 U/L (17-59); Bilirubin,Total 0.5 mg/dL (0.2-1.3); Blood Urea Nitrogen 16 mg/dL (9-20); Carbon Dioxide 25 mmol/L (22-30); Chloride 107 mmol/L (98-107); Estimated CRCL calculation 92 ml/min; Estimated Glomerular Filt Rate > 60; Glucose 114 mg/dL (65-110); Lipase 169 U/L (23-300); Potassium 4.2 mmol/L (3.4-5.0); Sodium 142 mmol/L (137-145)
[2024-05-29 14:45] LABS: INR 1.1; Prothrombin Time 14.1 Seconds (11.1-14.7)
[2024-05-29 14:46] LABS: Partial Thromboplastin Time 30.6 Seconds (22.3-36.8)
[2024-05-29 14:54] LABS: Troponin I < 0.012 ng/mL (0.000-0.034)
--- NOTE | 2024-05-29 15:18 | ED.ARRPALP ---
HPI - Arrhythmia/Palpitations General Chief Complaint: Arrhythmia/Palpitations Stated Complaint: I'm in afib Time Seen by Provider: 05/29/24 15:18 Focused HPI: Patient is a 64 y/o male, with PMH of AFIB on Xarelto, CADs/p PCI on plavix, who presents to the ED with c/o palpitations, fatigue. Patient reports he woke up this morning feeling fatigued and off. He reports irregular HR, palpitations, labile HR ranging from 40s-80s. States he feels as though he is back in AFIB. Hx of previous cardiac ablation and multiple cardioversions. Sees Dr. Velasquez. Reports compliance w/ anticoagulation. Does also c/o mild difficulty breathing, clamminess currently. Denies CP, pain or swelling in legs. GENERAL: Well-appearing, obese with BMI of 33.9, and in no acute distress. HEAD: Normocephalic, atraumatic. CHEST: Clear to auscultation. ?No respiratory distress. HEART: Regular rate and irregular rhythm.? No peripheral edema. NEURO: ?Alert and oriented x3. Patient screened in triage and initial orders placed.? ?Additional care and disposition to be based upon?diagnostic testing and treatment. Source: patient Mode of arrival: ambulatory Limitations: no limitations Related Data Home Medications ?Medication ?Instructions ?Recorded ?Confirmed ?Last Taken ?Type rivaroxaban 20 mg tablet 20 mg PO QPM 03/26/21 04/12/24 09/28/21 History duloxetine 60 mg capsule,delayed 60 mg PO QPM 09/28/23 04/12/24 Unknown History release esomeprazole magnesium 40 mg 40 mg PO QPM 09/28/23 04/12/24 Unknown History capsule,delayed release sildenafil 100 mg tablet 100 mg PO PRN PRN sexual activity 09/28/23 04/12/24 Unknown History Allergies Allergy/AdvReac Type Severity Reaction Status Date / Time cat dander Allergy Unknown Other Verified 04/12/24 08:48 cyclobenzaprine (From AdvReac Severe Hallucinati Verified 04/12/24 08:48 Flexeril) ng NSAIDS (Non-Steroidal AdvReac Other Verified 04/12/24 08:48 Anti-Inflamma PMFSH Past Medical History Medical History Colon cancer screening Screening PSA (prostate specific antigen) Scrotal mass Heart attack Morbid obesity Anxiety and depression Hypertension CAD (coronary artery disease) 3 X 16 Taxus Liberte to mid LAD 2008 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 History of cystoscopy 2018 H/O umbilical hernia repair X2 S/P right rotator cuff repair 1978 H/O dilation of urethra H/O knee surgery Patella fracture. Small piece removed Family History Family History Father Hypertension Family history of heart disease in male family member before age 55 COPD (chronic obstructive pulmonary disease) Pulmonary embolism Grandparent Family history of lung cancer Mother Cancer Cerebrovascular accident COPD (chronic obstructive pulmonary disease) Sibling Diabetes mellitus COPD (chronic obstructive pulmonary disease) Sibling Scoliosis Social History Social History Smoking status: Never smoker Second hand tobacco smoke exposure: Yes Additional smoking assessment comments: DENIES ANY FORM OF TOBACCO USE Alcohol intake: never Substance use: current Substance use type: marijuana Other substance usage details: Daily use Last use: 10/19/23 Do You Feel Safe in your Home?: Yes Lack of Transportation: No Lack of Food: Never True Current Housing: I Have Housing Concerned About Future Housing: No Difficulty Paying Gas/Electric Bills: No Difficulty Paying for Meds: No Currently Unemployed: No Education: Trade/Vocational Certificate Difficulty w/ Childcare or Family Care: No Living arrangements: with family Additional living arrangements comments: Spouse Occupation/Education: retired 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 Gender identity (if verbalized by the patient): Male Spiritual care concerns: No Agree to blood products: Yes Course Vital Signs Vital signs: Vital Signs Temperature 98.2 F 05/29/24 14:19 Pulse Rate 48 L 05/29/24 14:19 Respiratory Rate 16 05/29/24 14:19 Blood Pressure 155/106 H 05/29/24 14:19 Pulse Oximetry 99 05/29/24 14:19 Oxygen Delivery Room Air 05/29/24 14:19 Temperature 98.2 F 05/29/24 14:19 Pulse Rate 98 05/29/24 16:54 Respiratory Rate 26 H 05/29/24 16:54 Blood Pressure 136/97 H 05/29/24 16:54 Pulse Oximetry 98 05/29/24 16:54 Oxygen Delivery Room Air 05/29/24 14:19 MDM - Arrhythmia/Palpitations MDM Narrative Medical decision making narrative: MSE by CARLITOS in triage. Lab Data 05/29/24 14:27 05/29/24 14:27 Labs: Lab Results 05/29/24 05/29/24 Range/Units 14:27 14:27 WBC 6.8 (4.5-10.0) K/mm3 RBC 5.76 (4.6-6.20) M/mm3 Hgb 14.8 (14.0-18.0) g/dL Hct 47.8 (42.0-52.0) % MCV 83.0 (80-100) fl MCH 25.7 L (26-34) pg MCHC 31.0 L (32-36) g/dl RDW 17.7 H (11.5-14.5) % Plt Count 210 (150-375) k/mm3 MPV 9.5 (7.4-10.4) fl Immature Gran % (Auto) 0.1 (0-0.5) % Neut % (Auto) 43.9 L (45.5-73.1) % Lymph % (Auto) 42.9 (18.3-44.2) % [place] % (Auto) 9.7 H (2.6-8.5) % Eos % (Auto) 2.8 (0-4.4) % Baso % (Auto) 0.6 (0.2-1.2) % Lymph # (Auto) 2.93 (0.9-3.2) K/mm3 [place] # (Auto) 0.7 H (0.1-0.6) K/mm3 Eos # (Auto) 0.2 (0-0.3) K/mm3 Baso # (Auto) 0.0 (0.0-0.1) K/mm3 Abs Immat Gran (auto) 0.01 (0.00-0.031) K/mm3 Absolute Neuts (auto) 3.0 (1.3-6.7) K/mm3 Absolute Nucleated RBC 0.000 (0.0-0.012) K/mm3 Nucleated RBC % 0.0 (0.0-0.2) % PT 14.1 (11.1-14.7) Seconds INR 1.1 APTT 30.6 (22.3-36.8) Seconds Sodium 142 (137-145) mmol/L Potassium 4.2 (3.4-5.0) mmol/L Chloride 107 (98-107) mmol/L Carbon Dioxide 25 (22-30) mmol/L Anion Gap 10 (4-12) mmol/L BUN 16 (9-20) mg/dL Creatinine 0.90 (0.7-1.3) mg/dL Estim Creat Clear Calc 92 ml/min Estimated GFR > 60 (59 - ) Glucose 114 H (65-110) mg/dL Calcium 9.0 (8.4-10.2) mg/dL Magnesium 2.0 (1.6-2.3) mg/dL Total Bilirubin 0.5 (0.2-1.3) mg/dL AST 25 (17-59) U/L ALT 19 (6-50) U/L Alkaline Phosphatase 57 (38-126) U/L Troponin I < 0.012 (0.000-0.034) ng/mL NT-Pro-B Natriuret Pep Cancelled 1530 H Total Protein 8.0 (6.3-8.2) g/dL Albumin 4.5 (3.5-5.1) g/dL Lipase 169 (23-300) U/L Discharge Plan Discharge Clinical Impression: A-fib Patient Disposition: Home Condition: Improved Instructions: A-fib (Atrial Fibrillation) (ED) Additional Instructions: Call your dispensary clerk as soon as possible for follow-up Return if symptoms are worsening , call your family physician for appointment, take Tylenol as as needed for aches and pain, continue home medications. Patient Language: Maltese Prescriptions: No Action rivaroxaban 20 mg tablet 20 mg PO QPM Rx Instructions: must administer with evening meal Ozempic 1 mg/dose (4 mg/3 mL) pen injector 1 mg subcut WEEKLY Qty: 3 2RF esomeprazole magnesium 40 mg capsule,delayed release(DR/EC) 40 mg PO QPM duloxetine 60 mg capsule,delayed release(DR/EC) 60 mg PO QPM Rx Instructions: TAKE 1 CAPSULE BY MOUTH DAILY sildenafil 100 mg tablet 100 mg PO PRN PRN (Reason: sexual activity) Rx Instructions: administer 30 minutes to 4 hours before activity rosuvastatin 20 mg tablet 20 mg PO QPM Qty: 90 3RF dapagliflozin propanediol [Farxiga] 10 mg tablet 10 mg PO DAILY Qty: 90 1RF clopidogrel 75 mg tablet 75 mg PO DAILY Qty: 90 1RF metformin 500 mg tablet extended release 24 hr 500 mg PO DAILY Qty: 90 1RF Rx Instructions: TAKE 1 TABLET BY MOUTH DAILY losartan 50 mg tablet 50 mg PO DAILY Qty: 90 1RF Follow-up/Referrals: Lui Vazquez MD [Primary Care Provider] -
[2024-05-29 15:57] LABS: NT Pro B Type Natriuretic Pept 1530 pg/mL (19.9-100)
--- OUTSIDE RECORDS SUMMARY | 2024-05-29 15:57 | XMS_ITS | Referral Summary ---
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 angina pectoris Take 1 tablet [...] CDT): -remains compliant on Xarelto therapy, asymptomatic -[id number] is 3 -recommend continued therapy for thromboprophylaxis Coronary artery disease invo lving squaxin coronary artery of squaxin heart without angina pectoris 09/05/2018 Paroxysmal atrial [...] 36 C (96.8 F) 04/19/2020 3:35 PM NETWORK SPECIALIST Respiratory Rate 18 04/19/2020 3:35 PM NETWORK SPECIALIST Oxygen Saturation 96% 09/23/2023 10: 47 AM CDT Inhaled Oxygen Concentration - - Weight 121.1 kg (266 lb 14.4 oz) 2023 10:47 AM CDT Height 177.8 cm (5' 10 ) 09/23/2023 10: 47 AM CDT Body Mass Index 38.3 09/23/2023 10:47 AM CDT Plan of Treatment Not on file Medical Devices Implanted Type Area Dried Fruit Washer Device Identifier Shelf Expiration Date Model / Serial / Lot [employer] [id number] System 6-12fr Mvp Venous Closure Vascade - [id number] - [id number] Implanted:Qty: 1 on 04/09/2020 by Jarrod Josue MD at [facility] [employer] 02/20/2022 800-612C-1 0U / [id number] / [id number] [employer] [id number] System 6-12fr Mvp Venous Closure Vascade - [id number] - [id number] Implanted:Qty: 1 on 04/09/2020 by Jarrod Josue MD at [facility] [employer] 02/20/2022 800-612C-1 0U / [id number] / [id number] [employer] [id number] Device Closure Vascade Od5 Fr Femoral Artery - [id number] - [id number] Implanted:Qty: 1 on 04/09/2020 by Jarrod Josue MD at [facility] [employer] 01/16/2022 700-500DX- 05U / [id number] / [id number] [employer] [id number] System 6-12fr Mvp Venous Closure Vascade - [id number] - [id number] Implanted:Qty: 1 on 04/09/2020 by Jarrod Josue MD at [facility] [employer] 02/20/2022 800-612C-1 0U / [id number] / [id number] Insurance [facility] [place] [address] [place] [address] [facility] MEDICARE ADVANTAGE Advance Directives For more information, please contact: [phone] * Full Code (Latest Code Status on File) Date Activated Date Inactivated Comments 04/17/2020 7:48 AM 04/19/2020 9:37 PM * Full Code Date Activated Date Inactivated Comments 04/09/2020 7:54 PM 04/10/2020 8:11 PM * Full Code Date Activated Date Inactivated Comments 03/01/2020 12:10 PM 03/02/2020 5:23 PM Care Teams Systems Test Analyst Relationship Specialty Start Date End Date Lui Vazquez MD PCP - General Family Medicine 07/08/18 Jarrod Josue MD Consulting Physician Cardiology 03/01/20 [place] [id number] [place] [address] Consulting Physician General Surgery 04/10/20
--- OUTSIDE RECORDS SUMMARY | 2024-05-29 15:57 | XMS_ITS | Clinical Summary ---
Author Organization [facility] [address] Address [address] [place] [address] Care Team Providers Care Gopherman Name Role Phone Lui Vazquez MD Primary Care Provider Jarrod Josue MD Unavailable [phone] Gautam Rajput MD Unavailable Allergies Active Allergy Reactions Criticality Noted Date Comments Metoprolol Fatigue Low 10/24/2012 Medications clopidogrel (PLAVIX) 75 mg tabletIndication s:Coronary artery disease involving apache coronary artery of apache heart without angina pectoris Take 1 tablet [...] CDT): -remains compliant on Xarelto therapy, asymptomatic -[id number] is 3 -recommend continued therapy for thromboprophylaxis Coronary artery disease invo lving apache coronary artery of apache heart without angina pectoris 09/05/2018 Paroxysmal atrial [...] 36 C (96.8 F) 04/19/2020 3:35 PM LAMP 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 Respiratory Rate 18 04/19/2020 3:35 PM LAMP DECORATOR Oxygen Saturation 96% 09/23/2023 10: 47 AM [...] 04/19/2020 Well Visit 65+ 2023 Influenza Vaccine (Season Ended) 2024 Medical Devices Implanted Type Area Plastic Bubble Packer Device Identifier Shelf Expiration Date Model / Serial / Lot [employer] [id number] System 6-12fr Mvp Venous Closure Vascade - [id number] - [id number] Implanted:Qty: 1 on 04/09/2020 by Jarrod Josue MD at [facility] [employer] 02/20/2022 800-612C-1 0U / [id number] / [id number] [employer] [id number] System 6-12fr Mvp Venous Closure Vascade - [id number] - [id number] Implanted:Qty: 1 on 04/09/2020 by Jarrod Josue MD at [facility] [employer] 02/20/2022 800-612C-1 0U / [id number] / [id number] [employer] [id number] Device Closure Vascade Od5 Fr Femoral Artery - [id number] - [id number] Implanted:Qty: 1 on 04/09/2020 by Jarrod Josue MD at [facility] [employer] 01/16/2022 700-500DX- 05U / [id number] / [id number] [employer] [id number] System 6-12fr Mvp Venous Closure Vascade - [id number] - [id number] Implanted:Qty: 1 on 04/09/2020 by Jarrod Josue MD at [facility] [employer] 02/20/2022 800-612C-1 0U / [id number] / [id number] Insurance [facility] U[facility] MEDICARE ADVANTAGE [facility] Address: [facility] [address] [place] [address] Advance Directives For more information, please contact: [phone] * Full Code (Latest Code Status on File) Date Activated Date Inactivated Comments 04/17/2020 7:48 AM 04/19/2020 9:37 PM * Full Code Date Activated Date Inactivated Comments 04/09/2020 7:54 PM 04/10/2020 8:11 PM * Full Code Date Activated Date Inactivated Comments 03/01/2020 12:10 PM 03/02/2020 5:23 PM Care Teams Gopherman Relationship Specialty Start Date End Date Lui Vazquez MD PCP - General Family Medicine 07/08/18 Jarrod Josue MD Consulting Physician Cardiology 03/01/20 [place] [address] [place] [address] Consulting Physician General Surgery 04/10/20
--- OUTSIDE RECORDS SUMMARY | 2024-05-29 15:58 | XMS_ITS | Encounter Summary ---
Author Organization [facility] Address [address] [place] [address] Phone Care Team Providers Care Finish Machine Tender Name Role Phone Lui Vazquez MD Primary Care Provider [phone] Jarrod Josue MD Unavailable [phone] Gautam Rajput MD Unavailable [phone] Encounter Details Date Type Department Care Team (Late st Contact Info) Description 07/18/2021 Orders Only [facility] PMR [phone] Scanning, Provider Social History Tobacco Use Types [...] on filedocumented in this encounter Care Teams Finish Machine Tender Relationship Specialty Start Date End Date Lui Vazquez MD PCP - General Family Medicine 07/08/18 Jarrod Josue MD Consulting Physician Cardiology 03/01/20 [place] [address] [place] [address] Consulting Physician General Surgery 04/10/20 documented as of this encounter
--- OUTSIDE RECORDS SUMMARY | 2024-05-29 15:58 | XMS_ITS | CONTINUITY OF CARE DOCUMENT ---
Author Name juan carlos, juan carlos Address Unknown Organization [facility] Address [address] [place] [address] Phone [phone] Care Team Providers Care Civil Technician Name Role Phone Jayden Suazo MD Unavailable [phone] SUSANA VILLEGAS, SHAMIR F Unavailable SUSANA VILLEGAS, SHAMIR F Unavailable [phone] PROBLEMS Condition Status Date Provider Notes CAD [...] In-person encounter Office Visit Jayden Suazo MD [facility] - In-person encounter Office Visit Jayden Suazo MD [facility] Mitral regurgitation, moderate - In-person encounter Office Visit Jayden Suazo MD [facility] CAD - 10/23 LAD - LIBERTECAROTID-10/28 CAROTID NEGSinus bradycardiaLEG PAIN - NML KASIE's 02/2008Sleep apnea, obstructive, severe - on CPAPAtrial fibrillation, paroxysmalObesityCarotid artery stenosis, right ECA, mild - In-person encounter Office Visit Jayden Suazo MD [facility] CAD - 10/23 LAD - LIBERTESinus bradycardiaSleep apnea, obstructive, severe - on CPAP - In-person encounter Office Visit Jayden Suazo MD [facility] - In-person encounter Office Visit Jayden Suazo MD [facility] - In-person encounter Office Visit Jayden Suazo MD [facility] HTN-10/28 ECHO LOPEZ DYS EF 55 - In-person encounter Office Visit Jayden Suazo MD [facility] Atrial fibrillation, paroxysmal - In-person encounter Office Visit Jayden Suazo MD [facility] - In-person encounter Office Visit Jayden Suazo MD [facility] - In-person encounter Office Visit Jayden Suazo MD [facility] - In-person encounter Office Visit Jayden Suazo MD [facility] - In-person encounter Office Visit Jayden Suazo MD [facility] Sleep apnea, obstructive, severe - on CPAP - In-person encounter Office Visit Jayden Suazo MD [facility] - In-person encounter Office Visit Jayden Suazo MD [facility] - In-person encounter Office Visit Jayden Suazo MD [facility] - In-person encounter Office Visit Jayden Suazo MD [facility] - In-person encounter Office Visit Jayden Suazo MD [facility] Sinus bradycardiaLEG PAIN - NML KASIE's 02/2008 - In-person encounter Office Visit Jayden Suazo MD [facility] HTN-10/28 ECHO LOPEZ DYS EF 55CAROTID-10/28 CAROTID NEG - In-person encounter Office Visit Jayden Suazo MD [facility] CAD - 10/23 LAD - LIBERTEHypercholesterolemiaHTN [...] Kassidy Block respiratory rate E&M 16 /min [facility] weight E&M 272 [lb_av] Kassidy Block [...] dinamikey oxygen saturation, oximetry 96 % Ilda Kellyeenson respiratory rate E&M 16 /min Venecia Castillo [...] Kailyn Corral blood pressure, diastolic 85 mm[Hg] Md beny Corral blood pressure, systolic 129 mm[Hg] [...] s Johann weight E&M 279 [lb_av] Aneatrjuan [facility] Body Mass Index (Ratio) 39.46 kg/m2 [...] DIAN respiratory rate E&M 18 /min Farhat aguilarbailee BIGGS Body Mass Index (Ratio) 38.30 kg/m2 [...] Little blood pressure, systolic 150 mm[Hg] Amos iMr pulse rate 72 /min Amosyejonathan Mir oxygen [...] Odell MA blood pressure, systolic 131 mm[Hg] Hai Odell MA pulse rate 54 /min Alanna [...] Interpretation Location LDL cholesterol, serum 99 mg/dL [facility] very low density lipoproteins 31.8 mg/dL [facility] 5.0 - 40.0 LDL/HDL (low-density lipoprotein/high-den sity lipoprotein) ratio 2.2 [facility] beta, serum, point, quantitative, [...] - 41.0 protein, total, serum 6.9 g/dL [facility] 6.[facility] - 8.7 bilirubin, serum, total 0.6 mg/dL [facility] 0.0 - 1.2 hemoglobin A1C, blood, as % of total hemoglobin 6.3 % [facility] 4[facility] - 5.6 [facility] thyroid stimulating hormone, serum 1.590 u[IU]/mL [facility] international normalized ratio (INR) 1.0 [facility] alanine aminotransferase (SGPT), serum 33 1/L [facility] aspartate aminotransferase (SGOT), serum 31 1/L [facility] creatinine, serum 0.88 mg/dL [facility] potassium, serum 5.2 mmol/L [facility] sodium, serum 143 mmol/L [facility] platelet count 186 10*3/uL [facility] hematocrit, blood 44.0 % [facility] hematocrit, blood 43.5 % [facility] creatinine, serum 0.85 mg/dL [facility] potassium, serum 4.6 mmol/L [facility] sodium, serum 141 mmol/L [facility] alkaline phosphatase, serum 60 1/L [facility] alanine aminotransferase (SGPT), serum 42 1/L [facility] aspartate aminotransferase (SGOT), serum 16 1/L [facility] triglyceride, serum, fasting 259 mg/dL [facility] HDL cholesterol, serum 46 mg/dL [facility] LDL cholesterol, serum 50 mg/dL [facility] cholesterol, serum 148 mg/dL [facility] HISTORY OF MEDICATION USE Medication Status Instructions [...] physical exercise, frequency, days per week no [facility] alcohol counseling yes [facility] In the past 3 months , have you been waking up wanting to use drugs? (CAGE substance use question #4) N [facility] In the past 3 months , have you felt guilty or bad about using drugs? (CAGE substance use question #3) N [facility] In the past 3 months , has anyone annoyed you by telling you to cut down or stop using drugs? (CAGE substance use question #2) N [facility] In the past 3 months , have you felt you should cut down or stop using drugs?(CAGE substance use question #1) N [facility] alcohol use, average drinks per day social basis only [facility] alcohol use yes [facility] caffeine use, averag e drinks per day 1+ [facility] drug use no [facility] passive cigarette sm dinh exposure no Kassidy Murdock smoking status Never smoker Kassidy platt social history [facility] E&M reviewed - no changes required [...] Never smoker Ilda Nathanmeng social history [facility] E&M reviewed - no changes required [...] average drinks per day social basis only [facility] caffeine use, averag e drinks per day [...] Payer name Policy type / Coverage type [facility] [employer] [id number] ADVANCE DIRECTIVES Name Date DISCUSSED - NO DECISION MADE TREATMENT PLAN Date Name Performer Cardiology:Orders: C omplete Echo (CPT-44631) Deon Fry Cardiology:His updat ed medication list [...] Tablet (Perindopril erbumine) ..... One tablet daily [facility] Cardiology:Pt had an other episode of Afib, again the day after drinking alcohol. He was treated at [facility]. We discussed anticoagulation again and he's willing to go on anticoagulation. Will stop Plavix and start Xarelto. Will obtain a f/u echo. He denies chest pain or SOB. [facility] Cardiology:BP today: 142/86 P rior BP: 130/80 (04/27/2016) His updated medication list for this problem includes: Aceon 4 Mg Oral Tablet (Perindopril erbumine) ..... One tablet daily [facility] Cardiology:The patie nt is using CPAP on a regular basis. The patient has been benefiting from therapy and should continue use. [facility] Cardiology:LDL was 9 9 and we will switch from Simvastatin to Crestor 20mg daily. [facility] Cardiology:Echo last year showed moderate MR and we will obtain a f/u echo. [facility] Cardiology:No chest pain or SOB. LDL was 99 and we will switch from Simvastatin to Crestor 20mg daily. His updated medication list for this problem includes: Aceon 4 Mg Oral Tablet (Perindopril erbumine) ..... One tablet daily Plavix 75 Mg Oral Tablet (Clopidogrel bisulfate) ..... One tab. daily [facility] Cardiology Follow up :Orders: S NOMED-CT: [id number] Current Medications Documented ([id number]-[id number]) L IPID PANEL (7600) H EMOGLOBIN A1c (496) H EPATIC FUNCTION PANEL (30232) [facility] Cardiology Follow up:Weight loss and exercise advised. [facility] Cardiology Follow up :Orders: S NOMED-CT: [id number] Current Medications Documented (SCT-[id number]) L IPID PANEL (7600) H EMOGLOBIN A1c (496) H EPATIC FUNCTION PANEL (98965) [facility] Cardiology Follow up :BP today: 130/80 P rior BP: 137/81 (04/22/2015) His updated medication list for this problem includes: Aceon 4 Mg Oral Tabs (Perindopril erbumine) ..... Once daily [facility] Cardiology Follow up:No dizzines s or fatigue. [facility] Cardiology Follow up :Orders: C arotid Duplex Bilateral (CPT-11113) [facility] Cardiology Follow up :Orders: S leep Study Home (CPT-64940) [facility] Cardiology Follow up :No chest pain or SOB. On Plavix. Orders: S TR - Adenosine (CPT-35129) C omplete Echo (CPT-98865) [facility] Cardiology Follow up :Pt had an episode of Afib, the day after drinking alcohol. He went to the ER at [place] and the Afib resolved spontaneously. We discussed anticoagulation recommendations ([id number] score is 2). At this time, he prefers to stay off anticoagulation. His updated medication list for this problem includes: Aceon 4 Mg Oral Tabs (Perindopril erbumine) ..... Once daily Plavix 75 Mg Tabs (Clopidogrel bisulfate) ..... One tab. daily [facility] Cardiology:CHOL: 148 (12/13/2007) LDL: 50 (12/13/2007) HDL: 46 (12/13/2007) T (12/13/2007) His updated medication list for this problem includes: Simvastatin 20 Mg Oral Tabs (Simvastatin) ..... Take 1 tab daily [facility] Cardiology:BP today: 137/81 P rior BP: 129/85 (03/26/2014) The following medications were removed from the medication list: Perindopril Erbumine 4 Mg Tabs (Perindopril erbumine) ..... 1 tablet daily His updated medication list for this problem includes: Aceon 4 Mg Oral Tabs (Perindopril erbumine) ..... Once daily [facility] Cardiology:No chest pain or SOB. Deon [facility] Cardiology:No palpit ations. H is updated medication [...] rders: A rterial Duplex Lower Extremity Bilateral (CPT-01047) Jayden Suazo MD follow-up venous dop pler [...] day. Orders: H olter Monitor 24 Hr (CPT-22351) Jayden Suazo MD office visit: H is [...] 46 (12/13/2007) T (12/13/2007) Orders: E KG (CPT-18432) Jayden Suazo MD office visit: H is [...] N o clinically significant valvular abnormalities. (12/14/2007) Jayedn Suazo MD office visit: H is updated [...] stent. (11/08/2007) Orders: H EPATIC FUNCTION PANEL (96331) C arotid Duplex Bilateral (CPT-75538) C omplete Echo (CPT-90011) S lee Study (*) Jayden Suazo MD [...] ed EKG Jayden Suazo MD completed SNOMED-CT: 464725848 799537 Current Medications Documented Jayden Suazo MD completed EKG Jayden Suazo MD completed SNOMED-CT: 115667838 131756 Current Medications Documented Jayden Suazo MD completed EKG Jayden Suazo MD completed ePrescribe - Check t his box if eRx is used Jayden Suazo MD completed EKG Jayden Suazo MD completed EKG Jayden Suazo MD completed EKG Jayden Suazo MD completed
--- OUTSIDE RECORDS SUMMARY | 2024-05-29 15:58 | XMS_ITS | Data Portability ---
Author Organization [place] [facility] [employer], Main Office Address [address] [place] [address] Care Team Providers Care Primer Inserting Machine Adjuster Name Role Phone SHAMIR MEZA Primary Care Provider [phone] SHAMIR MEZA Referring Provider Assessment No assessment recorded. Plan of Treatment [...] resul t No observ ation record ed. [id number] Not Available 04/15/2022 12:52:38 Result Notes None recorded. Problems Name Problem SNOMED Code Status Onset Date Resolution Date Notes Provider Name and Address Organization Details Recorded Time Metatarsalgi a 75664221 Active Not Available [facility] 3 12:49:01 Gouty arthropathy 490728366 Active Not Available [facility] 3 12:49:01 Plantar fasciitis 493347820 Active Not Available [facility] 3 12:49:01 Myocardial infarction 98490252 Active 2007, one stint placed Not Available [facility] 3 12:49:01 Osteoarthrit is 553568151 Active Not Available [facility] 3 12:49:01 Scrotal mass 11329860 Active 2022 Not Available [facility] 3 12:49:01 Upper respiratory infection 86690240 Active Not Available [facility] 3 12:49:01 Derangement of knee 84763287 Active Not Available [facility] 3 12:49:01 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 Procedures Surgical History None recorded. Imaging Results Imaging Date Name Status LastModified by Organiz ation Details LastModified Time 02/26/2022 imaging/torri gnostic result completed [id number] Information not available 04/15/2022 12:52:38 Procedure [...] % 61 /min 18 /min 97.7 [degF] 108206. 98 g 140 mm[Hg] 90 mm[Hg] Not Available [facility] 3 12:48:17 Date Recorded Body mass index (BMI) Body height Oxygen saturation Oxygen saturation in Arterial blood by Pulse oximetry Heart rate Body temperature Body weight Systolic blood pressure Diastolic blood pressure Provider Name and Address Organization Details Last Updated DateTime 3 38 kg/m2 177.8 cm 96 % 96 % 64 /min 98.6 [degF] 701550. 98 g 152 mm[Hg] 81 mm[Hg] Not Available [facility] 12:48:17 Date Recorded Body height Provider Name an d Address Organization Details Last Updated DateTime 04/24/2022 177.8 cm Paula Millan MA [place] [facility] 04/24/2022 15:54:38 Date Recorded Heart rate Oxygen saturation Oxygen saturation in Arterial blood by Pulse oximetry Body mass index (BMI) Body weight Body temperature Provider Name and Address Organization Details Last Updated DateTime 90 /min 99 % 99 % 38.3 kg/m2 515070. 16 g 98.4 [degF] MARIXA Glover [place] [employer] [facility] [employer] 16:06:34 Social History Question Answer Notes LastModified by [employer]at ion Details LastModified Time Tobacco Smoking Status Never Smoker Not Available [facility] 04/15/2022 12:46:17 What Is Your Level Of Alcohol Consumption? None [id number] Information not available 04/15/2022 What Is Your Level Of Caffeine Consumption? Moderate [id number] Information not available 04/15/2022 Which Illicit Or Recreational Drugs Have You Used? Marijuana [id number] Information not available 04/15/2022 Do You Use Any Illicit Or Recreational Drugs? Yes [id number] Information not available 04/15/2022 Has Tobacco Cessation Counseling Been Provided? No [id number] Information not available 04/15/2022 Have You Recently Traveled Abroad? No [id number] Information not available 04/15/2022 Do You Or Have You Ever Used Any Other Forms Of Tobacco Or Nicotine? No [id number] Information not available 04/15/2022 Sex: Unknown Functional Status None recorded. Mental Status None recorded. Family History Relationship Description Onset Age of this Age Resolved Age Notes LastModified by Organization Details LastModified Time Father Venous varices Heart Diseas e [id number] Not available 04/15/2022 12:46:29 Father Heart disease [id number] Not available 04/15/2022 12:46:29 Father Hypertensive disorder [id number] Not available 04/15/2022 12:46:29 Brother Venous varices Heart Diseas e [id number] Not available 04/15/2022 12:46:29 Brother Diabetes mellitus [id number] Not available 04/15/2022 12:46:29 Mother Diabetes mellitus [id number] Not available 04/15/2022 12:46:29 Mother Hypertensive disorder [id number] Not available 04/15/2022 12:46:29 Medical History Condition Response ARTHRITIS Y USE OF BLOOD THINNERS Y HEART DISEASE/HEART PROBLEMS Y DIABETES, TYPE Y HYPERTENSION Y HIGH CHOLESTEROL / HYPERLIPIDEMIA Y GOUT Y DEPRESSION (INCLUDING POST ) Y Past Encounters Encounter ID Performer Location Encounter Start Date Encounter Closed Date Diagnosis/Indication Diagnosis SNOMED-CT Code Diagnosis ICD10 Code Diagnosis Note [id number] [place] [place] [address] [place] [address], [address] [phone] 02/26/2022 00:00:00 02/26/2022 13:09:52 [id number] S_[facility] [address] [place] [id number] 02/27/2022 00:00:00 02/27/2022 17:05:10 [id number] Sukhi Leonard MD S_[facility] [address] [place] [id number] 04/24/2022 15:33:39 04/24/2022 16:34:36 Lipoma of spermatic cord 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 Sukhi Leonard MD [address] [place] [address], [place] [address], [place], [address], [place] [facility] 04/24/2022 16:39:09
--- NOTE | 2024-05-29 16:18 | ED_ITS ---
HPI - Arrhythmia/Palpitations General Chief Complaint: Arrhythmia/Palpitations Stated Complaint: I'm in afib Time Seen by Provider: 05/29/24 15:18 Source: patient Mode of arrival: ambulatory Limitations: no limitations History of Present Illness HPI narrative: 64 years old white male came from home by reporting that he think that he is in AFib. Is telling me that started having general weakness, felt his heart is irregular,, feeling sluggish and sick stoma. 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 On arrival to the ED patient is asymptomatic. He denies any fever, chills, nausea, vomiting, shortness of breath, chest pain back pain. Related Data Home Medications ?Medication ?Instructions ?Recorded ?Confirmed ?Last Taken ?Type rivaroxaban 20 mg tablet 20 mg PO QPM 03/26/21 04/12/24 09/28/21 History duloxetine 60 mg capsule,delayed 60 mg PO QPM 09/28/23 04/12/24 Unknown History release esomeprazole magnesium 40 mg 40 mg PO QPM 09/28/23 04/12/24 Unknown History capsule,delayed release sildenafil 100 mg tablet 100 mg PO PRN PRN sexual activity 09/28/23 04/12/24 Unknown History Allergies Allergy/AdvReac Type Severity Reaction Status Date / Time cat dander Allergy Unknown Other Verified 04/12/24 08:48 cyclobenzaprine (From AdvReac Severe Hallucinati Verified 04/12/24 08:48 Flexeril) ng NSAIDS (Non-Steroidal AdvReac Other Verified 04/12/24 08:48 Anti-Inflamma Review of Systems 2 Review of Systems: All systems reviewed & are unremarkable except as noted in HPI and below PMFSH Past Medical History Medical History Colon cancer screening Screening PSA (prostate specific antigen) Scrotal mass Heart attack Morbid obesity Anxiety and depression Hypertension CAD (coronary artery disease) 3 X 16 Taxus Liberte to mid LAD 2007 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 History of cystoscopy 2018 H/O umbilical hernia repair X2 S/P right rotator cuff repair 1979 H/O dilation of urethra H/O knee surgery Patella fracture. Small piece removed Family History Family History Father Hypertension Family history of heart disease in male family member before age 55 COPD (chronic obstructive pulmonary disease) Pulmonary embolism Grandparent Family history of lung cancer Mother Cancer Cerebrovascular accident COPD (chronic obstructive pulmonary disease) Sibling Diabetes mellitus COPD (chronic obstructive pulmonary disease) Sibling Scoliosis Social History Social History Smoking status: Never smoker Second hand tobacco smoke exposure: Yes Additional smoking assessment comments: DENIES ANY FORM OF TOBACCO USE Alcohol intake: never Substance use: current Substance use type: marijuana Other substance usage details: Daily use Last use: 10/19/23 Do You Feel Safe in your Home?: Yes Lack of Transportation: No Lack of Food: Never True Current Housing: I Have Housing Concerned About Future Housing: No Difficulty Paying Gas/Electric Bills: No Difficulty Paying for Meds: No Currently Unemployed: No Education: Trade/Vocational Certificate Difficulty w/ Childcare or Family Care: No Living arrangements: with family Additional living arrangements comments: Spouse Occupation/Education: retired 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 Musculoskeletal: Normal range of motion, nontender back Neurologic: Alert and oriented ?3, DWARF TREE GROWER is normal as tested, no gross motor deficit Course Vital Signs Vital signs: Vital Signs Temperature 36.8 C 05/29/24 14:19 Pulse Rate 48 L 05/29/24 14:19 Respiratory Rate 16 05/29/24 14:19 Blood Pressure 155/106 H 05/29/24 14:19 Pulse Oximetry 99 05/29/24 14:19 Oxygen Delivery Room Air 05/29/24 14:19 Temperature 36.8 C 05/29/24 14:19 Pulse Rate 98 05/29/24 16:54 Respiratory Rate 26 H 05/29/24 16:54 Blood Pressure 136/97 H 05/29/24 16:54 Pulse Oximetry 98 05/29/24 16:54 Oxygen Delivery Room Air 05/29/24 14:19 MDM - Arrhythmia/Palpitations MDM Narrative Medical decision making narrative: Patient came to the ED reporting that he feels in AFib with irregular heartbeat. Vital signs showing blood pressure 155/106, heart rate 48 irregular, otherwise within normal limits Physical examination showing irregular heartbeat Differential diagnosis include paroxysmal AFib, electrolyte imbalance, less likely coronary artery disease. 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 Currently patient feeling much better, denying any symptoms and would like to go home as soon as possible. The pt was discharged to home.the pt,s condition upon discharge was fair,education was provided to the pt in reference to the final impression,discharge study results,treatment,prognosis and need for follow up . Differential Diagnosis Differential diagnosis: Likely other (As above) Medical Records Attestation: I reviewed the patient's medical records. Lab Data Attestation: I reviewed the patient's lab results. 05/29/24 14:27 05/29/24 14:27 Labs: Lab Results 05/29/24 05/29/24 Range/Units 14: 14: WBC 6.8 (4.5-10.0) K/mm3 RBC 5.76 (4.6-6.20) M/mm3 Hgb 14.8 (14.0-18.0) g/dL Hct 47.8 (42.0-52.0) % MCV 83.0 (80-100) fl MCH 25.7 L (26-34) pg MCHC 31.0 L (32-36) g/dl RDW 17.7 H (11.5-14.5) % Plt Count 210 (150-375) k/mm3 MPV 9.5 (7.4-10.4) fl Immature Gran % (Auto) 0.1 (0-0.5) % Neut % (Auto) 43.9 L (45.5-73.1) % Lymph % (Auto) 42.9 (18.3-44.2) % [place] % (Auto) 9.7 H (2.6-8.5) % Eos % (Auto) 2.8 (0-4.4) % Baso % (Auto) 0.6 (0.2-1.2) % Lymph # (Auto) 2.93 (0.9-3.2) K/mm3 [place] # (Auto) 0.7 H (0.1-0.6) K/mm3 Eos # (Auto) 0.2 (0-0.3) K/mm3 Baso # (Auto) 0.0 (0.0-0.1) K/mm3 Abs Immat Gran (auto) 0.01 (0.00-0.031) K/mm3 Absolute Neuts (auto) 3.0 (1.3-6.7) K/mm3 Absolute Nucleated RBC 0.000 (0.0-0.012) K/mm3 Nucleated RBC % 0.0 (0.0-0.2) % PT 14.1 (11.1-14.7) Seconds INR 1.1 APTT 30.6 (22.3-36.8) Seconds Sodium 142 (137-145) mmol/L Potassium 4.2 (3.4-5.0) mmol/L Chloride 107 (98-107) mmol/L Carbon Dioxide 25 (22-30) mmol/L Anion Gap 10 (4-12) mmol/L BUN 16 (9-20) mg/dL Creatinine 0.90 (0.7-1.3) mg/dL Estim Creat Clear Calc 92 ml/min Estimated GFR > 60 (59 - ) Glucose 114 H (65-110) mg/dL Calcium 9.0 (8.4-10.2) mg/dL Magnesium 2.0 (1.6-2.3) mg/dL Total Bilirubin 0.5 (0.2-1.3) mg/dL AST 25 (17-59) U/L ALT 19 (6-50) U/L Alkaline Phosphatase 57 (38-126) U/L Troponin I < 0.012 (0.000-0.034) ng/mL NT-Pro-B Natriuret Pep Cancelled 1530 H Total Protein 8.0 (6.3-8.2) g/dL Albumin 4.5 (3.5-5.1) g/dL Lipase 169 (23-300) U/L Imaging Data Radiologist's impression: Impressions Chest X-Ray 05/29/24 15:07 IMPRESSION: No focal infiltrate or effusion. ECG Data EKG #1: Attestation: I personally reviewed and interpreted this ECG as follows: ECG completion date: 05/29/24 Interpretation: Atrial fibrillation at 88 beats per minute, incomplete right bundle parag block, borderline ST T-wave abnormality Abnormal EKG, no previous EKG available for comparison Critical Care Time Critical Care Time Critical Care Time: No Discharge Plan Discharge Clinical Impression: A-fib Patient Disposition: Home Condition: Improved Instructions: A-fib (Atrial Fibrillation) (ED) Additional Instructions: Call your sheep herder as soon as possible for follow-up Return if symptoms are worsening , call your family physician for appointment, take Tylenol as as needed for aches and pain, continue home medications. Patient Language: Bangladeshi Prescriptions: No Action rivaroxaban 20 mg tablet 20 mg PO QPM Rx Instructions: must administer with evening meal Ozempic 1 mg/dose (4 mg/3 mL) pen injector 1 mg subcut WEEKLY Qty: 3 2RF esomeprazole magnesium 40 mg capsule,delayed release(DR/EC) 40 mg PO QPM duloxetine 60 mg capsule,delayed release(DR/EC) 60 mg PO QPM Rx Instructions: TAKE 1 CAPSULE BY MOUTH DAILY sildenafil 100 mg tablet 100 mg PO PRN PRN (Reason: sexual activity) Rx Instructions: administer 30 minutes to 4 hours before activity rosuvastatin 20 mg tablet 20 mg PO QPM Qty: 90 3RF dapagliflozin propanediol [Farxiga] 10 mg tablet 10 mg PO DAILY Qty: 90 1RF clopidogrel 75 mg tablet 75 mg PO DAILY Qty: 90 1RF metformin 500 mg tablet extended release 24 hr 500 mg PO DAILY Qty: 90 1RF Rx Instructions: TAKE 1 TABLET BY MOUTH DAILY losartan 50 mg tablet 50 mg PO DAILY Qty: 90 1RF Follow-up/Referrals: Lui Vazquez MD [Primary Care Provider] -
[2024-05-29 16:54] VITALS: BP 136/97; PULSE 98; RESP 26; O2SAT 98
--- OUTSIDE RECORDS SUMMARY | 2024-05-29 17:43 | XMS_ITS | Encounter Summary ---
Author Organization [facility] Address [address] [place] [address] Phone Care Team Providers Care Concert Promoter Name Role Phone Lui Vazquez MD Primary Care Provider [phone] Jarrod Josue MD Unavailable [phone] Gautam Rajput MD Unavailable [phone] Encounter Details Date Type Department Care Team (Late st Contact Info) Description 07/18/2021 Orders Only [facility] PMR [phone] Scanning, Provider Social History Tobacco Use Types [...] on filedocumented in this encounter Care Teams Concert Promoter Relationship Specialty Start Date End Date Lui Vazquez MD PCP - General Family Medicine 07/08/18 Jarrod Josue MD Consulting Physician Cardiology 03/01/20 [place] [id number] [place] [address] Consulting Physician General Surgery 04/10/20 documented as of this encounter
--- OUTSIDE RECORDS SUMMARY | 2024-05-29 17:43 | XMS_ITS | Referral Summary ---
Author Organization [facility] [address] Address [address] [place] [address] Care Team Providers Care Medicare Insurance Specialist Name Role Phone Lui Vazquez MD Primary Care Provider Jarrod Josue MD Unavailable Gautam Rajptu MD Unavailable Allergies Active Allergy Reactions Criticality Noted Date Comments Metoprolol Fatigue Low 10/24/2012 Medications clopidogrel (PLAVIX) 75 mg tabletIndication s:Coronary artery disease involving [place] coronary artery of [place] heart without angina pectoris Take 1 tablet [...] CDT): -remains compliant on Xarelto therapy, asymptomatic -[id number] is 3 -recommend continued therapy for thromboprophylaxis Coronary artery disease invo lving [place] coronary artery of [place] heart without angina pectoris 09/05/2018 Paroxysmal atrial [...] 36 C (96.8 F) 04/19/2020 3:35 PM WET PAN 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 Respiratory Rate 18 04/19/2020 3:35 PM WET PAN MIXER Oxygen Saturation 96% 09/23/2023 10: 47 AM CDT Inhaled Oxygen Concentration - - Weight 121.1 kg (266 lb 14.4 oz) 2023 10:47 AM CDT Height 177.8 cm (5' 10 ) 09/23/2023 10: 47 AM CDT Body Mass Index 38.3 09/23/2023 10:47 AM CDT Plan of Treatment Not on file Medical Devices Implanted Type Area Procurement Agent Device Identifier Shelf Expiration Date Model / Serial / Lot [employer] [id number] System 6-12fr Mvp Venous Closure Vascade - [id number] - [id number] Implanted:Qty: 1 on 04/09/2020 by Jarrod Josue MD at [facility] [employer] 02/20/2022 800-612C-1 0U / [id number] / [id number] [employer] [id number] System 6-12fr Mvp Venous Closure Vascade - [id number] - [id number] Implanted:Qty: 1 on 04/09/2020 by Jarrod Josue MD at [facility] [employer] 02/20/2022 800-612C-1 0U / [id number] / [id number] [employer] [id number] Device Closure Vascade Od5 Fr Femoral Artery - [id number] - [id number] Implanted:Qty: 1 on 04/09/2020 by Jarrod Josue MD at [facility] [employer] 01/16/2022 700-500DX- 05U / [id number] / [id number] [employer] [id number] System 6-12fr Mvp Venous Closure Vascade - [id number] - [id number] Implanted:Qty: 1 on 04/09/2020 by Jarrod Josue MD at [facility] [employer] 02/20/2022 800-612C-1 0U / [id number] / [id number] Insurance [facility] [place] [place] [address] [facility] MEDICARE ADVANTAGE Advance Directives For more information, please contact: [phone] * Full Code (Latest Code Status on File) Date Activated Date Inactivated Comments 04/17/2020 7:48 AM 04/19/2020 9:37 PM * Full Code Date Activated Date Inactivated Comments 04/09/2020 7:54 PM 04/10/2020 8:11 PM * Full Code Date Activated Date Inactivated Comments 03/01/2020 12:10 PM 03/02/2020 5:23 PM Care Teams Medicare Insurance Specialist Relationship Specialty Start Date End Date Lui Vazquez MD PCP - General Family Medicine 07/08/18 Jarrod Josue MD Consulting Physician Cardiology 03/01/20 [place] [id number] [place] [address] Consulting Physician General Surgery 04/10/20
--- OUTSIDE RECORDS SUMMARY | 2024-05-29 17:43 | XMS_ITS | Clinical Summary ---
Author Organization [facility] [address] Address [address] [place] [address] Care Team Providers Care Transformation Coach Name Role Phone Lui Vazquez MD Primary Care Provider Jarord Josue MD Unavailable [phone] Gautam Rajput MD Unavailable [phone] Allergies Active Allergy Reactions Criticality Noted Date Comments Metoprolol Fatigue Low 10/24/2012 Medications clopidogrel (PLAVIX) 75 mg tabletIndication s:Coronary artery disease involving [place] coronary artery of [place] heart without angina pectoris Take 1 tablet [...] CDT): -remains compliant on Xarelto therapy, asymptomatic -[id number] is 3 -recommend continued therapy for thromboprophylaxis Coronary artery disease invo lving g[place] coronary artery of [place] heart without angina pectoris 09/05/2018 Paroxysmal atrial [...] 36 C (96.8 F) 04/19/2020 3: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 Respiratory Rate 18 04/19/2020 3: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 Oxygen Saturation 96% 09/23/2023 10: 47 AM [...] Ended) 2024 Medical Devices Implanted Type Area Senior Microsoft Consultant Device Identifier Shelf Expiration Date Model / Serial / Lot [employer] [id number] System 6-12fr Mvp Venous Closure Vascade - [id number] - [id number] Implanted:Qty: 1 on 04/09/2020 by Jarrod Josue MD at [facility] [employer] 02/20/2022 800-612C-1 0U / [id number] / [id number] [employer] [id number] System 6-12fr Mvp Venous Closure Vascade - [id number] - [id number] Implanted:Qty: 1 on 04/09/2020 by Jarrod Josue MD at [facility] [employer] 02/20/2022 800-612C-1 0U / [id number] / [id number] [employer] [id number] Device Closure Vascade Od5 Fr Femoral Artery - [id number] - [id number] Implanted:Qty: 1 on 04/09/2020 by Jarrod Josue MD at [facility] [employer] 01/16/2022 700-500DX- 05U / [id number] / [id number] [employer] [id number] System 6-12fr Mvp Venous Closure Vascade - [id number] - [id number] Implanted:Qty: 1 on 04/09/2020 by Jarrod Josue MD at [facility] [employer] 02/20/2022 800-612C-1 0U / [id number] / [id number] Insurance [facility] UHC MEDICARE ADVANTAGE [facility] Address: [facility] [address] [place] [address] Advance Directives For more information, please contact: [phone] * Full Code (Latest Code Status on File) Date Activated Date Inactivated Comments 04/17/2020 7:48 AM 04/19/2020 9:37 PM * Full Code Date Activated Date Inactivated Comments 04/09/2020 7:54 PM 04/10/2020 8:11 PM * Full Code Date Activated Date Inactivated Comments 03/01/2020 12:10 PM 03/02/2020 5:23 PM Care Teams Transformation Coach Relationship Specialty Start Date End Date Lui Vazquez MD PCP - General Family Medicine 07/08/18 Jarrod Josue MD Consulting Physician Cardiology 03/01/20 [place] [address] [place] [address] Consulting Physician General Surgery 04/10/20
--- OUTSIDE RECORDS SUMMARY | 2024-05-29 17:43 | XMS_ITS | CONTINUITY OF CARE DOCUMENT ---
Author Name juan carlos, juan carlos Address Unknown Organization [facility] Address [address] [place] [address] Phone [phone] Care Team Providers Care Spike Driver Name Role Phone Jayden Suazo MD Unavailable [phone] SUSANA VILLEGAS, SHAMIR F Unavailable [phone] SUSANA VILLEGAS, SHAMIR F Unavailable PROBLEMS Condition [...] In-person encounter Office Visit Jayden Suazo MD [facility] - In-person encounter Office Visit Jayden Suazo MD [facility] Mitral regurgitation, moderate - In-person encounter Office Visit Jayden Suazo MD [facility] CAD - 10/23 LAD - LIBERTECAROTID-10/28 CAROTID NEGSinus bradycardiaLEG PAIN - NML KASIE's 02/2008Sleep apnea, obstructive, severe - on CPAPAtrial fibrillation, paroxysmalObesityCarotid artery stenosis, right ECA, mild - In-person encounter Office Visit Jayden Suazo MD [facility] CAD - 10/23 LAD - LIBERTESinus bradycardiaSleep apnea, obstructive, severe - on CPAP - In-person encounter Office Visit Jayden Suazo MD [facility] - In-person encounter Office Visit Jayden Suazo MD [facility] - In-person encounter Office Visit Jayden Suazo MD [facility] HTN-10/28 ECHO LOPEZ DYS EF 55 - In-person encounter Office Visit Jayden Suazo MD [facility] Atrial fibrillation, paroxysmal - In-person encounter Office Visit Jayden Suazo MD [facility] - In-person encounter Office Visit Jayden Suazo MD [facility] - In-person encounter Office Visit Jayden Suazo MD [facility] - In-person encounter Office Visit Jayden Suazo MD [facility] - In-person encounter Office Visit Jayden Suazo MD [facility] Sleep apnea, obstructive, severe - on CPAP - In-person encounter Office Visit Jayden Suazo MD [facility] - In-person encounter Office Visit Jayden Suazo MD [facility] - In-person encounter Office Visit Jayden Suazo MD [facility] - In-person encounter Office Visit Jayden Suazo MD [facility] - In-person encounter Office Visit Jayden Suazo MD [facility] Sinus bradycardiaLEG PAIN - NML KASIE's 02/2008 - In-person encounter Office Visit Jayden Suazo MD [facility] HTN-10/28 ECHO LOPEZ DYS EF 55CAROTID-10/28 CAROTID NEG - In-person encounter Office Visit Jayden Suazo MD [facility] CAD - 10/23 LAD - LIBERTEHypercholesterolemiaHTN -10/28 ECHO LOPEZ DYS EF 55 VITAL SIGNS Date Observation Value Provider Body Mass Index (Ratio) 39.02 kg/m2 Dre song rFy blood pressure, diastolic, left arm 72 mm [...] Kassidy Block respiratory rate E&M 16 /min [facility] weight E&M 272 [lb_av] Kassidy Block [...] Kailyn Corral blood pressure, diastolic 85 mm[Hg] Ia beny Corral blood pressure, systolic 129 mm[Hg] [...] s Johann weight E&M 279 [lb_av] Aneatrjuan [facility] Body Mass Index (Ratio) 39.46 kg/m2 [...] [place] blood pressure, diastolic 76 mm[Hg] Ck Cihlds RN blood pressure, systolic 121 mm[Hg] Farhat [...] Interpretation Location LDL cholesterol, serum 99 mg/dL [facility] very low density lipoproteins 31.8 mg/dL [facility] 5.0 - 40.0 LDL/HDL (low-density lipoprotein/high-den sity lipoprotein) ratio 2.2 [facility] - lipoprotein, beta, serum, point, quantitative, calculated [...] - 41.0 protein, total, serum 6.9 g/dL [facility] 6.6 - 8.7 bilirubin, serum, total 0.6 mg/dL [facility] 0.0 - 1.2 hemoglobin A1C, blood, as % of total hemoglobin 6.3 % [facility] 4.0 - 5.6 [facility] thyroid stimulating hormone, serum 1.590 u[IU]/mL [facility] international normalized ratio (INR) 1.0 [facility] alanine aminotransferase (SGPT), serum 33 1/L [facility] aspartate aminotransferase (SGOT), serum 31 1/L [facility] creatinine, serum 0.88 mg/dL [facility] potassium, serum 5.2 mmol/L [facility] sodium, serum 143 mmol/L [facility] platelet count 186 10*3/uL [facility] hematocrit, blood 44.0 % [facility] hematocrit, blood 43.5 % [facility] creatinine, serum 0.85 mg/dL [facility] potassium, serum 4.6 mmol/L [facility] sodium, serum 141 mmol/L [facility] alkaline phosphatase, serum 60 1/L [facility] alanine aminotransferase (SGPT), serum 42 1/L [facility] aspartate aminotransferase (SGOT), serum 16 1/L [facility] triglyceride, serum, fasting 259 mg/dL [facility] HDL cholesterol, serum 46 mg/dL [facility] LDL cholesterol, serum 50 mg/dL [facility] cholesterol, serum 148 mg/dL [facility] HISTORY OF MEDICATION USE Medication Status [...] physical exercise, frequency, days per week no [facility] alcohol counseling yes [facility] In the past 3 months , have you been waking up wanting to use drugs? (CAGE substance use question #4) N [facility] In the past 3 months , have you felt guilty or bad about using drugs? (CAGE substance use question #3) N [facility] In the past 3 months , has anyone annoyed you by telling you to cut down or stop using drugs? (CAGE substance use question #2) N [facility] In the past 3 months , have you felt you should cut down or stop using drugs?(CAGE substance use question #1) N [facility] alcohol use, average drinks per day social basis only [facility] alcohol use yes [facility] caffeine use, averag e drinks per day 1+ [facility] drug use no [facility] passive cigarette sm dinh exposure no Kassidy Murdock smoking status Never smoker Kassidy platt social history [facility] E&M reviewed - no changes required Jayden [...] Never smoker Ilda Nathanmeng social history [facility] E&M reviewed - no changes required Jayden [...] average drinks per day social basis only [facility] caffeine use, averag e drinks [...] Payer name Policy type / Coverage type [facility] [employer] [id number] ADVANCE DIRECTIVES Name Date DISCUSSED - NO DECISION MADE TREATMENT PLAN Date Name Performer Cardiology:Orders: C omplete Echo (CPT-81253) Deon Fry Cardiology:His updat ed medication list [...] Tablet (Perindopril erbumine) ..... One tablet daily [facility] Cardiology:Pt had an other episode of Afib, again the day after drinking alcohol. He was treated at [facility]. We discussed anticoagulation again and he's willing to go on anticoagulation. Will stop Plavix and start Xarelto. Will obtain a f/u echo. He denies chest pain or SOB. [facility] Cardiology:BP today: 142/86 P rior BP: 130/80 (04/27/2016) His updated medication list for this problem includes: Aceon 4 Mg Oral Tablet (Perindopril erbumine) ..... One tablet daily [facility] Cardiology:The patie nt is using CPAP on a regular basis. The patient has been benefiting from therapy and should continue use. [facility] Cardiology:LDL was 9 9 and we will switch from Simvastatin to Crestor 20mg daily. [facility] Cardiology:Echo last year showed moderate MR and we will obtain a f/u echo. [facility] Cardiology:No chest pain or SOB. LDL was 99 and we will switch from Simvastatin to Crestor 20mg daily. His updated medication list for this problem includes: Aceon 4 Mg Oral Tablet (Perindopril erbumine) ..... One tablet daily Plavix 75 Mg Oral Tablet (Clopidogrel bisulfate) ..... One tab. daily [facility] Cardiology Follow up :Orders: S NOMED-CT: [id number] Current Medications Documented ([id number]) L IPID PANEL (7600) H EMOGLOBIN A1c (496) H EPATIC FUNCTION PANEL (10331) [facility] Cardiology Follow up:Weight loss and exercise advised. [facility] Cardiology Follow up :Orders: S NOMED-CT: [id number] Current Medications Documented ([id number]) L IPID PANEL (7600) H EMOGLOBIN A1c (496) H EPATIC FUNCTION PANEL (90254) [facility] Cardiology Follow up :BP today: 130/80 P rior BP: 137/81 (04/22/2015) His updated medication list for this problem includes: Aceon 4 Mg Oral Tabs (Perindopril erbumine) ..... Once daily [facility] Cardiology Follow up:No dizzines s or fatigue. [facility] Cardiology Follow up :Orders: C arotid Duplex Bilateral (CPT-45994) [facility] Cardiology Follow up :Orders: S leep Study Home (CPT-49902) [facility] Cardiology Follow up :No chest pain or SOB. On Plavix. Orders: S TR - Adenosine (CPT-79390) C omplete Echo (CPT-24203) [facility] Cardiology Follow up :Pt had an episode of Afib, the day after drinking alcohol. He went to the ER at [place] and the Afib resolved spontaneously. We discussed anticoagulation recommendations ([id number] score is 2). At this time, he prefers to stay off anticoagulation. His updated medication list for this problem includes: Aceon 4 Mg Oral Tabs (Perindopril erbumine) ..... Once daily Plavix 75 Mg Tabs (Clopidogrel bisulfate) ..... One tab. daily [facility] Cardiology:CHOL: 148 (12/13/2007) LDL: 50 (12/13/2007) HDL: 46 (12/13/2007) T (12/13/2007) His updated medication list for this problem includes: Simvastatin 20 Mg Oral Tabs (Simvastatin) ..... Take 1 tab daily [facility] Cardiology:BP today: 137/81 P rior BP: 129/85 (03/26/2014) The following medications were removed from the medication list: Perindopril Erbumine 4 Mg Tabs (Perindopril erbumine) ..... 1 tablet daily His updated medication list for this problem includes: Aceon 4 Mg Oral Tabs (Perindopril erbumine) ..... Once daily [facility] Cardiology:No chest pain or SOB. Deon [facility] Cardiology:No palpit ations. H is updated medication [...] rders: A rterial Duplex Lower Extremity Bilateral (CPT-73098) Jayden Suazo MD follow-up venous dop pler [...] day. Orders: H olter Monitor 24 Hr (CPT-26950) Jayden Suazo MD office visit: H is [...] 46 (12/13/2007) T (12/13/2007) Orders: E KG (CPT-00729) Jayden Suazo MD office visit: H is [...] stent. (11/08/2007) Orders: H EPATIC FUNCTION PANEL (11046) C arotid Duplex Bilateral (CPT-08158) C omplete Echo (CPT-69786) S lee Study (*) Jayden Suazo MD [...] ed EKG Jayden Suazo MD completed SNOMED-CT: [id number] 110364 Current Medications Documented Jayden Suazo MD completed EKG Jayden Suazo MD completed SNOMED-CT: [id number] Current Medications Documented Jayden Suazo MD completed EKG Jayden Suazo MD completed ePrescribe - Check t his box if eRx is used Jayden Suazo MD completed EKG Jayden Suazo MD completed EKG Jayden Suazo MD completed EKG Jayden Suazo MD completed
== END 2024-05-29 16:55 | disposition home or self-care (01) ==
PROVIDERS: Emergency Medicine; Physician Assistant; Emergency Provider Emergency Medicine; PCP Family Medicine
DX: I48.91 Unspecified atrial fibrillation (principal); I25.10 Atherosclerotic heart disease of native coronary artery without angina pectoris; I25.2 Old myocardial infarction; I10 Essential (primary) hypertension; E78.00 Pure hypercholesterolemia, unspecified; K21.9 Gastro-esophageal reflux disease without esophagitis; G47.30 Sleep apnea, unspecified; M19.90 Unspecified osteoarthritis, unspecified site; Z95.5 Presence of coronary angioplasty implant and graft; Z77.22 Contact with and (suspected) exposure to environmental tobacco smoke (acute) (chronic); Z79.01 Long term (current) use of anticoagulants; Z79.85 Long-term (current) use of injectable non-insulin antidiabetic drugs; Z79.899 Other long term (current) drug therapy; Z79.84 Long term (current) use of oral hypoglycemic drugs; Z79.02 Long term (current) use of antithrombotics/antiplatelets
CPT/HCPCS: 36415; 71046; 80053; 83690; 83735; 83880; 84484; 85025; 85610; 85730; 93005; 99284

== ENCOUNTER 2024-06-21 01:50 | Day surgery (SDC) | payer MEDICARE, SELFPAY ==
[2024-06-12 10:21] VITALS: BMI 35.6
--- NOTE | 2024-06-12 10:34 | PC.NURSE ---
Spoke with patient's , Carine regarding medication Plavix & Xarelto. Carine verbalizes understanding that the last dose is to be taken on 06/16/24 for Plavix & 06/18/24 for Xarelto and the Endoscopist will instruct them when to restart after the procedure.
--- OUTSIDE RECORDS SUMMARY | 2024-06-21 01:52 | XMS_ITS | Encounter Summary ---
Author Organization [facility] Address [address] [place] [address] Phone Care Team Providers Care Silver Buffer Name Role Phone Lui Vazquez MD Primary Care Provider [phone] Jarrod Josue MD Unavailable [phone] Gautam Rajput MD Unavailable [phone] Encounter Details Date Type Department Care Team (Late st Contact Info) Description 07/18/2021 Orders Only [facility] PMR [phone] Scanning, Provider Social History Tobacco Use Types [...] on filedocumented in this encounter Care Teams Silver Buffer Relationship Specialty Start Date End Date Lui Vazquez MD PCP - General Family Medicine 07/08/18 Jarrod Josue MD Consulting Physician Cardiology 03/01/20 [place] [address] [place] [address] Consulting Physician General Surgery 04/10/20 documented as of this encounter
--- OUTSIDE RECORDS SUMMARY | 2024-06-21 01:52 | XMS_ITS | Clinical Summary ---
Author Organization [facility] [address] Address [address] [place] [address] Care Team Providers Care Take Down Sorter Name Role Phone Lui Vazquez MD Primary Care Provider Jarrod Josue MD Unavailable [phone] Gautam Rajput MD Unavailable [phone] Allergies Active Allergy Reactions Criticality Noted Date Comments Metoprolol Fatigue Low 10/24/2012 Medications clopidogrel (PLAVIX) 75 mg tabletIndication s:Coronary artery disease involving [place] coronary artery of [place] heart without angina pectoris Take 1 tablet (75 mg total) by mouth daily 90 tablet 3 09/06/[address] (NexIUM) 40 mg capsuleIndicatio ns:Stress Ulcer Prophylaxis Take 1 capsule (40 mg total) by mouth daily before breakfast 90 capsule 3 04/10/19 20 Active rosuvastatin (CRESTOR) 20 mg tablet Take 1 tablet (20 mg total) by mouth daily 90 tablet 3 09/29/19 20 Active metFORMIN XR (GLUCOPHAGE XR) 500 mg 24 hr tablet Take 1 tablet (500 mg total) by mouth daily with breakfast 30 tablet 04/20/19 21 Active Xarelto 20 mg tabletIndication s:Paroxysmal atrial fibrillation (HCC) TAKE 1 TABLET BY MOUTH EVERY DAY 90 tablet 3 10/06/19 24 Active Ozempic 1 mg/dose (4 mg/3 mL) pen injector injection 03/18/19 25 Active Farxiga 10 mg tablet Take 1 tablet (10 mg total) by mouth daily 03/30/19 25 Active losartan (COZAAR) 50 mg tablet Take 1 tablet (50 mg total) by mouth daily 05/15/19 25 Active sildenafiL (VIAGRA) 100 mg tabletIndication s:Erectile Dysfunction Take 1 tablet (100 mg total) by mouth daily as needed for erectile dysfunction 10 tablet 3 06/14/19 25 Active sildenafiL (VIAGRA) 100 mg tablet Take 1 tablet (100 mg total) by mouth daily as needed for erectile dysfunction 025 Discontin ued(Reord er) DULoxetine DR (CYMBALTA) 60 mg capsule Take 1 capsule (60 mg total) by mouth daily 025 Discontin ued(Alter hailey therapy) losartan (COZAAR) 25 mg tabletIndication s:Essential hypertension TAKE 1 TABLET(25 MG) BY MOUTH DAILY 30 tablet 11 06/03/19 23 025 Discontin ued(Alter hailey therapy) Farxiga 5 mg tablet Take 1 tablet (5 mg total) by mouth daily 08/11/19 24 025 Discontin ued(Alter hailey therapy) Active Problems Problem Noted Date Diagnosed Date [...] CDT): -remains compliant on Xarelto therapy, asymptomatic -ONW4OY3-DSXa is 3 -recommend continued therapy for thromboprophylaxis Coronary artery disease invo lving win[place] coronary artery of [place] heart without angina pectoris 09/05/2018 Paroxysmal atrial [...] Stenosis of right carotid artery 12/14/2007 Hypertension Encounters Date Type Department Care Team Description 06/13/2024 10:00 AM CDT Office Visit [facility] Card[facility] [address] [place] [address] Katie Faye NP Coronary artery disease involving win[place] coronary artery of [place] heart without angina pectoris; Lipid screening; Erectile dysfunction, unspecified erectile dysfunction type; Paroxysmal atrial fibrillation (HCC); S/P ablation of atrial fibrillation; Chronic anticoagulation from Last 3 Months Surgical History Surgery Date Site/Laterality Comments CORONARY STENT PLACEMENT UMBILICAL HERNIA REPAIR REPLACEMENT TOTAL KNEE URETHRAL DILATION CARDIAC ELECTROPHYSIOLOGY STUDY AND ABLATION JOINT REPLACEMENT Oct 2023 [facility] Medical History Medical History Date Comments Hypertension [...] Sign Reading Time Taken Comments Blood Pressure 126/80 06/13/2024 9:47 AM CDT Pulse 87 06/13/2024 9:47 AM CDT Temperature 36 C (96.8 F) 04/19/2020 3: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 Respiratory Rate 18 04/19/2020 3: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 [employer] 02/20/2022 800-612C-1 0U / [id number] / [id number] [employer] [id number] System 6-12fr Mvp Venous Closure Vascade - [id number] - [id number] Implanted:Qty: 1 on 04/09/2020 by Jarrod Josue MD at [facility] [employer] 02/20/2022 800-612C-1 0U / [id number] / [id number] [employer] [id number] Device Closure Vascade Od5 Fr Femoral Artery - [id number] - [id number] Implanted:Qty: 1 on 04/09/2020 by Jarrod Josue MD at [facility] [employer] 01/16/2022 [id number] / [id number] / [id number] [employer] [id number] System 6-12fr Mvp Venous Closure Vascade - [id number] - [id number] Implanted:Qty: 1 on 04/09/2020 by Jarrod Josue MD at [facility] [employer] 02/20/2022 800-612C-1 0U / [id number] / [id number] Procedures Procedure Name Priority Date/Time Associated Diagnosis Comments POCT LIPID PANEL Routine 06/13/2024 9:53 AM CDT Lipid screening from Last 3 Months Results * POCT lipid panel (06/13/2024 9:53 AM CDT) Cholesterol, POC 104 mg/dL HDL, POC 32 mg/dL Triglycerides, POC 128 mg/dL LDL Cholesterol POC 46 mg/dL Chol/HDL Ratio, POC 1.5 Non-HDL Cholesterol, POC 72 mg/dL Cholesterol Total, POC 104 mg/dL Capillary blood 06/13/2024 9 :53 AM CDT Katie Faye NP POINT OF CARE TEST ORDERA BLES Final Result from Last 3 Months Insurance [facility] UHC MEDICARE ADVANTAGE [facility] Address: [address] [address] [place] [address] Advance Directives For more information, please contact: [phone] * Full Code (Latest Code Status on File) Date Activated Date Inactivated Comments 04/17/2020 7:48 AM 04/19/2020 9:37 PM * Full Code Date Activated Date Inactivated Comments 04/09/2020 7:54 PM 04/10/2020 8:11 PM * Full Code Date Activated Date Inactivated Comments 03/01/2020 12:10 PM 03/02/2020 5:23 PM Care Teams Take Down Sorter Relationship Specialty Start Date End Date Lui Vazquez MD PCP - General Family Medicine 07/08/18 Jarrod Josue MD Consulting Physician Cardiology 03/01/20 [place] [address] [place] [address] Consulting Physician General Surgery 04/10/20
--- OUTSIDE RECORDS SUMMARY | 2024-06-21 01:52 | XMS_ITS | Data Portability ---
Author Organization [place] - [facility], Main Office Address [address] [place] [address] Care Team Providers Care [employer] Foods Worker Name Role Phone SHAMIR MEZA Primary Care Provider [phone] SHAMIR MEZA Referring Provider [phone] Assessment No assessment recorded. Plan of Treatment [...] resul t No observ ation record ed. [id number] Not Available 04/15/2022 12:52:38 Result Notes None recorded. Problems Name Problem SNOMED Code Status Onset Date Resolution Date Notes Provider Name and Address Organization Details Recorded Time Metatarsalgi a 95400262 Active Not Available [facility] 3 12:49:01 Gouty arthropathy 878511116 Active Not Available [facility] 3 12:49:01 Plantar fasciitis 990981664 Active Not Available [facility] 3 12:49:01 Myocardial infarction 89024150 Active 2007, one stint placed Not Available [facility] 3 12:49:01 Osteoarthrit is 765811104 Active Not Available [facility] 3 12:49:01 Scrotal mass 93170864 Active 2022 Not Available [facility] 3 12:49:01 Upper respiratory infection 47643738 Active Not Available [facility] 3 12:49:01 Derangement of knee 19386653 Active Not Available [facility] 3 12:49:01 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 Procedures Surgical History None recorded. Imaging Results Imaging Date Name Status LastModified by Organiz ation Details LastModified Time 02/26/2022 imaging/torri gnostic result completed [id number] Information not available 04/15/2022 12:52:38 Procedure [...] % 61 /min 18 /min 97.7 [degF] 161444. 98 g 140 mm[Hg] 90 mm[Hg] Not Available [facility] 3 12:48:17 Date Recorded Body mass index (BMI) Body height Oxygen saturation Oxygen saturation in Arterial blood by Pulse oximetry Heart rate Body temperature Body weight Systolic blood pressure Diastolic blood pressure Provider Name and Address Organization Details Last Updated DateTime 3 38 kg/m2 177.8 cm 96 % 96 % 64 /min 98.6 [degF] 664583. 98 g 152 mm[Hg] 81 mm[Hg] Not Available [facility] 12:48:17 Date Recorded Body height Provider Name an d Address Organization Details Last Updated DateTime 04/24/2022 177.8 cm Paula Millan MA [place] [facility] 04/24/2022 15:54:38 Date Recorded Heart rate Oxygen saturation Oxygen saturation in Arterial blood by Pulse oximetry Body mass index (BMI) Body weight Body temperature Provider Name and Address Organization Details Last Updated DateTime 90 /min 99 % 99 % 38.3 kg/m2 099956. 16 g 98.4 [degF] MARIXA Glover [place] [facility] 16:06:34 Social History Question Answer Notes LastModified by [employer] ion Details LastModified Time Tobacco Smoking Status Never Smoker Not Available [facility] 04/15/2022 12:46:17 What Is Your Level Of Alcohol Consumption? None [id number] Information not available 04/15/2022 What Is Your Level Of Caffeine Consumption? Moderate [id number] Information not available 04/15/2022 Which Illicit Or Recreational Drugs Have You Used? Marijuana [id number] Information not available 04/15/2022 Do You Use Any Illicit Or Recreational Drugs? Yes [id number] Information not available 04/15/2022 Has Tobacco Cessation Counseling Been Provided? No [id number] Information not available 04/15/2022 Have You Recently Traveled Abroad? No [id number] Information not available 04/15/2022 Do You Or Have You Ever Used Any Other Forms Of Tobacco Or Nicotine? No [id number] Information not available 04/15/2022 Sex: Unknown Functional Status None recorded. Mental Status None recorded. Family History Relationship Description Onset Age of this Age Resolved Age Notes LastModified by Organization Details LastModified Time Father Venous varices Heart Diseas e [id number] Not available 04/15/2022 12:46:29 Father Heart disease [id number] Not available 04/15/2022 12:46:29 Father Hypertensive disorder [id number] Not available 04/15/2022 12:46:29 Brother Venous varices Heart Diseas e [id number] Not available 04/15/2022 12:46:29 Brother Diabetes mellitus [id number].376 [id number] Not available 04/15/2022 12:46:29 Mother Diabetes mellitus [id number] Not available 04/15/2022 12:46:29 Mother Hypertensive disorder [id number] [id number] Not available 04/15/2022 12:46:29 Medical History Condition Response HIGH CHOLESTEROL / HYPERLIPIDEMIA Y DEPRESSION (INCLUDING POST ) Y ARTHRITIS Y USE OF BLOOD THINNERS Y DIABETES, TYPE Y GOUT Y HEART DISEASE/HEART PROBLEMS Y HYPERTENSION Y Past Encounters Encounter ID Performer Location Encounter Start Date Encounter Closed Date Diagnosis/Indication Diagnosis SNOMED-CT Code Diagnosis ICD10 Code Diagnosis Note [id number] Jackson leo MD [facility] [place] [address] [facility], [address] [place] [address] 02/26/2022 00:00:00 02/26/2022 13:09:52 [id number] Sukhi Leonard MD [facility] [address] [address] 02/27/2022 00:00:00 02/27/2022 17:05:10 [id number] Sukhi Leonard MD [facility] [address] [address] 04/24/2022 15:33:39 04/24/2022 16:34:36 Lipoma of spermatic cord 04972439 D17.6 Patient with large right scrotal/gr oin [...] Jaffe Member ID Guarantor Name 04/24/2022 1 [facility] [place] - [employer] CHOICE POS II (POS) [id number] Abhilash Garrison [id number] Abhilash Garrison Notes Date Note Type Note [...] but healing well overall. Sukhi Leonard MD [address] [place] [address], [facility] [address], [place], [address], [place] [facility] 04/24/2022 16:39:09
--- OUTSIDE RECORDS SUMMARY | 2024-06-21 01:52 | XMS_ITS | Referral Summary ---
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; Lipid screening; Erectile dysfunction, unspecified erectile dysfunction type; Paroxysmal atrial fibrillation (HCC); S/P ablation of atrial fibrillation; Chronic anticoagulation from Last 3 Months Allergies Active Allergy Reactions Criticality Noted Date Comments Metoprolol Fatigue Low 10/24/2012 Medications clopidogrel (PLAVIX) 75 mg tabletIndication s:Coronary artery disease involving three affiliated coronary 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 pectoris Take 1 tablet [...] CDT): -remains compliant on Xarelto therapy, asymptomatic -[id number] is 3 -recommend continued therapy for thromboprophylaxis Coronary artery disease invo lving three affiliated coronary 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 pectoris 09/05/2018 Paroxysmal atrial [...] 36 C (96.8 F) 04/19/2020 3:35 PM 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 Respiratory Rate 18 04/19/2020 3:35 PM 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 Oxygen Saturation 96% 06/13/2024 9:47 AM CDT Inhaled Oxygen Concentration - - Weight 115.7 kg (255 lb) 06/13/2024 9:47 AM CDT Height 177.8 cm (5' 10 ) 06/13/2024 9:47 AM CDT Body Mass Index 36.59 06/13/2024 9:47 AM CDT Plan of Treatment Not on file Medical Devices Implanted Type Area Out Of School Hours Care Worker Device Identifier Shelf Expiration Date Model / Serial / Lot [employer] [id number] System 6-12fr Mvp Venous Closure Vascade - [id number] - [id number] Implanted:Qty: 1 on 04/09/2020 [facility] [employer] 02/20/2022 800-612C-1 0U / [id number] / [id number] [employer] [id number] System 6-12fr Mvp Venous Closure Vascade - [id number] - [id number] Implanted:Qty: 1 on 04/09/2020 by Jarrod Josue MD at [facility] [employer] [employer] 02/20/2022 800-612C-1 0U / [id number] / [id number] [employer] [id number] Device Closure Vascade Od5 Fr Femoral Artery - [id number] - [id number] Implanted:Qty: 1 on 04/09/2020 by [facility] [employer] 01/16/2022 700-500DX- 05U / [id number] / [id number] [employer] [id number] System 6-12fr Mvp Venous Closure Vascade - [id number] - [id number] Implanted:Qty: 1 on 04/09/2020 by [facility]rod [facility] [employer] 02/20/2022 800-612C-1 0U / [id number] / [id number] Procedures Procedure Name Priority Date/Time Associated [...] Final Result from Last 3 Months Insurance [facility] [place] [address] [facility] MEDICARE ADVANTAGE Advance Directives For more information, please contact: [phone] * Full Code (Latest Code Status on File) Date Activated Date Inactivated Comments 04/17/2020 7:48 AM 04/19/2020 9:37 PM * Full Code Date Activated Date Inactivated Comments 04/09/2020 7:54 PM 04/10/2020 8:11 PM * Full Code Date Activated Date Inactivated Comments 03/01/2020 12:10 PM 03/02/2020 5:23 PM Care Teams Labor Relations Director Relationship Specialty Start Date End Date Lui Vazquez MD PCP - General Family Medicine 07/08/18 Jarrod Josue MD Consulting Physician Cardiology 03/01/20 [place] [address] [place] [address] Consulting Physician General Surgery 04/10/20
--- OUTSIDE RECORDS SUMMARY | 2024-06-21 01:52 | XMS_ITS | CONTINUITY OF CARE DOCUMENT ---
Author Name juan carlos, juan carlos Address Unknown Organization [facility] Address [address] [facility] [address] [place] [address] Phone [phone] Care Team Providers Care Community Organization Worker Name Role Phone Jayden Suazo MD Unavailable [phone] SUSANA VILLEGAS, SHAMIR F Unavailable [phone] SUSANA VILLEGAS, SHAMIR F Unavailable PROBLEMS Condition [...] In-person encounter Office Visit Jayden Suazo MD [facility] - In-person encounter Office Visit Jayden Suazo MD [facility] Mitral regurgitation, moderate - In-person encounter Office Visit Jayden Suazo MD [facility] CAD - 10/23 LAD - LIBERTECAROTID-10/28 CAROTID NEGSinus bradycardiaLEG PAIN - NML KASIE's 02/2008Sleep apnea, obstructive, severe - on CPAPAtrial fibrillation, paroxysmalObesityCarotid artery stenosis, right ECA, mild - In-person encounter Office Visit Jayden Suazo MD [facility] CAD - 10/23 LAD - LIBERTESinus bradycardiaSleep apnea, obstructive, severe - on CPAP - In-person encounter Office Visit Jayden Suazo MD [facility] - In-person encounter Office Visit Jayden Suazo MD [facility] - In-person encounter Office Visit Jayden Suazo MD [facility] HTN-10/28 ECHO LOPEZ DYS EF 55 - In-person encounter Office Visit Jayden Suazo MD [facility] Atrial fibrillation, paroxysmal - In-person encounter Office Visit Jayden Suazo MD [facility] - In-person encounter Office Visit Jayden Suazo MD [facility] - In-person encounter Office Visit Jayden Suazo MD [facility] - In-person encounter Office Visit Jayden Suazo MD [facility] - In-person encounter Office Visit Jayden Suazo MD [facility] Sleep apnea, obstructive, severe - on CPAP - In-person encounter Office Visit Jayden Suazo MD [facility] - In-person encounter Office Visit Jayden Suazo MD [facility] - In-person encounter Office Visit Jayden Suazo MD [facility] - In-person encounter Office Visit Jayden Suazo MD [facility] - In-person encounter Office Visit Jayden Suazo MD [facility] Sinus bradycardiaLEG PAIN - NML KASIE's 02/2008 - In-person encounter Office Visit Jayden Suazo MD [facility] HTN-10/28 ECHO LOPEZ DYS EF 55CAROTID-10/28 CAROTID NEG - In-person encounter Office Visit Jayden Suazo MD [facility] CAD - 10/23 LAD - LIBERTEHypercholesterolemiaHTN [...] Kassidy Block respiratory rate E&M 16 /min [facility] weight E&M 272 [lb_av] Kassidy Block height E&M 70 [in_i] Kassidy Block Body Mass Index (Ratio) 40.29 kg/m2 Dre Fry blood pressure, diastolic 86 mm[Hg] Fartun Castillo blood pressure, systolic 142 mm[Hg] Yumiko Castillo oxygen saturation, oximetry 97 % Ilda Castillo respiratory rate E&M 18 /min Venecia Castillo pulse rate 63 /min Ilda hickmna weight E&M 280.8 [lb_av] Ilda knutson height E&M 70 [in_i] Ilda hickman Body Mass Index (Ratio) 40.03 kg/m2 Dre Fry blood pressure, resting Yes Jayden Amanda Suazo MD blood pressure, cuff size regular Araceli Rivero blood pressure, diastolic 80 mm[Hg] Araceli baltazar Rivero blood pressure, systolic 130 mm[Hg] aJmal jacqueline Mat oxygen saturation, oximetry 98 % [...] Kailyn Corral blood pressure, diastolic 85 mm[Hg] Ok beny Corral blood pressure, systolic 129 mm[Hg] [...] s Johann weight E&M 279 [lb_av] Aneatrjuan [facility] Body Mass Index (Ratio) 39.46 [...] /min Amosjeannettejonathan Mir weight E&M 263 [lb_av] Amoslsiseth Mir blood pressure, diastolic, left arm 77 [...] Farhat skinner RN weight E&M 262 [lb_av] Fahrat Childs RN blood pressure, diastolic, left arm [...] Bruce Manacop oxygen saturation, oximetry 98 % Burce Manacop respiratory rate E&M 16 /min Bruce [...] Interpretation Location LDL cholesterol, serum 99 mg/dL [facility] very low density lipoproteins 31.8 mg/dL [facility] 5.0 - 40.0 LDL/HDL (low-density lipoprotein/high-den sity lipoprotein) ratio 2.2 [facility] lipoprotein, beta, serum, point, quantitative, [...] - 41.0 protein, total, serum 6.9 g/dL [facility] 6.6 - 8.7 bilirubin, serum, total 0.6 mg/dL [facility] 0.0 - 1.2 hemoglobin A1C, blood, as % of total hemoglobin 6.3 % [facility] 4[facility]0 - 5.6 [facility] thyroid stimulating hormone, serum 1.590 u[IU]/mL [facility] international normalized ratio (INR) 1.0 [facility] alanine aminotransferase (SGPT), serum 33 1/L [facility] aspartate aminotransferase (SGOT), serum 31 1/L [facility] creatinine, serum 0.88 mg/dL [facility] potassium, serum 5.2 mmol/L [facility] sodium, serum 143 mmol/L [facility] platelet count 186 10*3/uL [facility] hematocrit, blood 44.0 % [facility] hematocrit, blood 43.5 % [facility] creatinine, serum 0.85 mg/dL [facility] potassium, serum 4.6 mmol/L [facility] sodium, serum 141 mmol/L [facility] alkaline phosphatase, serum 60 1/L [facility] alanine aminotransferase (SGPT), serum 42 1/L [facility] aspartate aminotransferase (SGOT), serum 16 1/L [facility] triglyceride, serum, fasting 259 mg/dL [facility] HDL cholesterol, serum 46 mg/dL [facility] LDL cholesterol, serum 50 mg/dL [facility] cholesterol, serum 148 mg/dL [facility] HISTORY OF MEDICATION USE Medication Status Instructions [...] physical exercise, frequency, days per week no [facility] alcohol counseling yes [facility] In the past 3 months , have you been waking up wanting to use drugs? (CAGE substance use question #4) N [facility] In the past 3 months , have you felt guilty or bad about using drugs? (CAGE substance use question #3) N [facility] In the past 3 months , has anyone annoyed you by telling you to cut down or stop using drugs? (CAGE substance use question #2) N [facility] In the past 3 months , have you felt you should cut down or stop using drugs?(CAGE substance use question #1) N [facility] alcohol use, average drinks per day social basis only [facility] alcohol use yes [facility] caffeine use, averag e drinks per day 1+ [facility] drug use no [facility] passive cigarette sm dinh exposure no Kassidy Murdock smoking status Never smoker Kassidy platt social history [facility] E&M reviewed - no changes required [...] Never smoker Ilda Nathanmeng social history [facility] E&M reviewed - no changes required Jayden Suazo MD social history E&M Marital Statu s: Tito alonzo with family/friends E thnicity: Smoking History: P atanthony has never smoked. Jayden Suazo MD physical exercise, frequency, days per week no Grace iRvero alcohol counseling yes Deon Fry In the [...] exercise, frequency, days per week no Ilda Casitllo alcohol counseling no Ilda Castillo In the [...] average drinks per day social basis only [facility] caffeine use, averag e drinks per day yes Mignon Blunt drug use no Mignon Blunt passive cigarette sm dinh exposure no Migonn Blunt smoking status Never smoker Mignon Blunt [...] and person. Mood and affect are normal. Frahat Childs RN FAMILY HISTORY Family Member Condition Mother Family History of Ot her Cancer Father Family History of Hy pertension: Mother Family History of Di abetes: Mother Family History of Co ronary Artery Disease: Mother Family History of Hy pertension: Father Family History of Co ronary Artery Disease: INSURANCE PROVIDERS Payer name Policy type / Coverage type [facility] Handpay [id number] ADVANCE DIRECTIVES Name Date DISCUSSED - NO DECISION MADE TREATMENT PLAN Date Name Performer Cardiology:Orders: C omplete Echo (CPT-[id number]) Deon Fry Cardiology:His updat ed medication list [...] Tablet (Perindopril erbumine) ..... One tablet daily [facility] Cardiology:Pt had an other episode of Afib, again the day after drinking alcohol. He was treated at [facility]. We discussed anticoagulation again and he's willing to go on anticoagulation. Will stop Plavix and start Xarelto. Will obtain a f/u echo. He denies chest pain or SOB. [facility] Cardiology:BP today: 142/86 P rior BP: 130/80 (04/27/2016) His updated medication list for this problem includes: Aceon 4 Mg Oral Tablet (Perindopril erbumine) ..... One tablet daily [facility] Cardiology:The patie nt is using CPAP on a regular basis. The patient has been benefiting from therapy and should continue use. [facility] Cardiology:LDL was 9 9 and we will switch from Simvastatin to Crestor 20mg daily. [facility] Cardiology:Echo last year showed moderate MR and we will obtain a f/u echo. [facility] Cardiology:No chest pain or SOB. LDL was 99 and we will switch from Simvastatin to Crestor 20mg daily. His updated medication list for this problem includes: Aceon 4 Mg Oral Tablet (Perindopril erbumine) ..... One tablet daily Plavix 75 Mg Oral Tablet (Clopidogrel bisulfate) ..... One tab. daily [facility] Follow up :Orders: S NOMED-CT: [id number] Current Medications Documented ([id number]) L IPID PANEL (7600) H EMOGLOBIN A1c (496) H EPATIC FUNCTION PANEL (07407) [facility] Follow up:Weight loss and exercise advised. [facility] Follow up :Orders: S NOMED-CT: [id number] Current Medications Documented ([id number]) L IPID PANEL (7600) H EMOGLOBIN A1c (496) H EPATIC FUNCTION PANEL (10524) [facility] Follow up :BP today: 130/80 P rior BP: 137/81 (04/22/2015) His updated medication list for this problem includes: Aceon 4 Mg Oral Tabs (Perindopril erbumine) ..... Once daily [facility] Follow up:No dizzines s or fatigue. [facility] Follow up :Orders: C arotid Duplex Bilateral (CPT-35862) [facility] Follow up :Orders: S leep Study Home (CPT-52274) [facility] Follow up :No chest pain or SOB. On Plavix. Orders: S TR - Adenosine (CPT-18245) C omplete Echo (CPT-07575) [facility] Follow up :Pt had an episode of Afib, the day after drinking alcohol. He went to the ER at [place] and the Afib resolved spontaneously. We discussed anticoagulation recommendations ([id number] score is 2). At this time, he prefers to stay off anticoagulation. His updated medication list for this problem includes: Aceon 4 Mg Oral Tabs (Perindopril erbumine) ..... Once daily Plavix 75 Mg Tabs (Clopidogrel bisulfate) ..... One tab. daily [facility] Cardiology:CHOL: 148 (12/13/2007) LDL: 50 (12/13/2007) HDL: 46 (12/13/2007) T (12/13/2007) His updated medication list for this problem includes: Simvastatin 20 Mg Oral Tabs (Simvastatin) ..... Take 1 tab daily [facility] Cardiology:BP today: 137/81 P rior BP: 129/85 (03/26/2014) The following medications were removed from the medication list: Perindopril Erbumine 4 Mg Tabs (Perindopril erbumine) ..... 1 tablet daily His updated medication list for this problem includes: Aceon 4 Mg Oral Tabs (Perindopril erbumine) ..... Once daily [facility] Cardiology:No chest pain or SOB. Deon [facility] Cardiology:No palpit ations. H is [...] rders: A rterial Duplex Lower Extremity Bilateral (CPT-67400) Jayden Suazo MD follow-up venous dop pler [...] day. Orders: H olter Monitor 24 Hr (CPT-36756) Jayden Suazo MD office visit: H is [...] 46 (12/13/2007) T (12/13/2007) Orders: E KG (CPT-84713) Jayden Suazo MD office visit: H is [...] stent. (11/08/2007) Orders: H EPATIC FUNCTION PANEL (29367) C arotid Duplex Bilateral (CPT-50486) C omplete Echo (CPT-14641) S lee Study (*) Jayden Suazo MD [...] ed EKG Jayden Suazo MD completed SNOMED-CT: [id number] 700433 Current Medications Documented Jayden Suazo MD completed EKG Jayden Suazo MD completed SNOMED-CT: 167615910 577047 Current Medications Documented Jayden Suazo MD completed EKG Jayden Suazo MD completed ePrescribe - Check t his box if eRx is used Jayden Suazo MD completed EKG Jayden Suazo MD completed EKG Jayden Suazo MD completed EKG Jayden Suazo MD completed
[2024-06-21 12:34] VITALS: BP 128/82; PULSE 87; RESP 18; TEMP 36.8; O2SAT 98; BMI 34.7
[2024-06-21] MEDS: LACTATED RINGERS 1,000 ML 150 ML IV CONT (12:55)
--- NOTE | 2024-06-21 12:55 | WPDANESEPPF ---
Anes - Initial Pre Proc Eval Procedure: Operation Date: 06/21/24 13:30 Proposed Procedures p Colonoscopy - Al Resendiz MD Date/Time: 06/21/24 12:55 Surgeon: Al Resendiz MD Pre Op Diagnosis: Other fecal abnormalities Patient Data Age: 64 Gender: M Height: 1.78 m Weight: 110 kg Last Vital Signs Temp 36.8 C 06/21/24 12:34 Pulse 87 06/21/24 12:34 Resp 18 06/21/24 12:34 BP 128/82 06/21/24 12:34 Pulse Ox 98 06/21/24 12:34 O2 Del Method Room Air 06/21/24 12:34 Allergies Allergy/AdvReac Type Severity Reaction Status Date / Time cat dander Allergy Unknown Other Verified 06/21/24 12:32 cyclobenzaprine (From AdvReac Severe Hallucinati Verified 06/21/24 12:32 Flexeril) ng NSAIDS (Non-Steroidal AdvReac Other Verified 06/21/24 12:32 Anti-Inflamma Home Medications ?Medication ?Instructions ?Recorded ?Confirmed ?Type rivaroxaban 20 mg tablet 20 mg PO QPM 03/26/21 06/21/24 History esomeprazole magnesium 40 mg 40 mg PO QPM 09/28/23 06/21/24 History capsule,delayed release sildenafil 100 mg tablet 100 mg PO PRN PRN sexual activity 09/28/23 06/12/24 History rosuvastatin 20 mg tablet 20 mg PO QPM #90 tabs 10/06/23 06/21/24 Rx dapagliflozin propanediol 10 mg 10 mg PO DAILY #90 tabs 12/30/23 06/21/24 Rx tablet (Farxiga) clopidogrel 75 mg tablet 75 mg PO DAILY #90 tabs 03/02/24 06/21/24 Rx metformin 500 mg tablet,extended 500 mg PO DAILY #90 tabs 04/05/24 06/21/24 Rx release 24 hr losartan 50 mg tablet 50 mg PO DAILY #90 tabs 05/14/24 06/21/24 Rx semaglutide 1 mg/dose (4 mg/3 mL) 1 mg (0.75 mL) subcut WEEKLY #3 mL 06/20/24 06/21/24 Rx subcutaneous pen injector (Ozempic) Patient hx anesthesia problems: none Family hx anesthesia problems: none Results Review: All pre-operative results and documents have been reviewed as part of the pre-operative evaluation. [facility] Past Medical History Medical History Colon cancer screening Screening PSA (prostate specific antigen) Scrotal mass Heart attack Morbid obesity Anxiety and depression Hypertension CAD (coronary artery disease) 3 X 16 Taxus Liberte to mid LAD 2008 Current use of buttermaker continuous churn 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 History of cystoscopy 2018 H/O umbilical hernia repair X2 S/P right rotator cuff repair 1978 H/O dilation of urethra H/O knee surgery Patella fracture. Small piece removed Family History Family History Father Hypertension Family history of heart disease in male family member before age 55 COPD (chronic obstructive pulmonary disease) Pulmonary embolism Grandparent Family history of lung cancer Mother Cancer Cerebrovascular accident COPD (chronic obstructive pulmonary disease) Sibling Diabetes mellitus COPD (chronic obstructive pulmonary disease) Sibling Scoliosis Social History Social History Smoking status: Never smoker Second hand tobacco smoke exposure: Yes Additional smoking assessment comments: DENIES ANY FORM OF TOBACCO USE Alcohol intake: never Substance use: current Substance use type: marijuana Other substance usage details: Daily use Last use: daily Do You Feel Safe in your Home?: Yes Lack of Transportation: No Lack of Food: Never True Current Housing: I Have Housing Concerned About Future Housing: No Difficulty Paying Gas/Electric Bills: No Difficulty Paying for Meds: No Currently Unemployed: No Education: Trade/Vocational Certificate Difficulty w/ Childcare or Family Care: No Living arrangements: with family Additional living arrangements comments: Spouse Occupation/Education: retired 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 Gender identity (if verbalized by the patient): Male Spiritual care concerns: No Agree to blood products: Yes Anes - Eval Final PreProcedure Day of Procedure 06/21/24 12:55 Patient weight: obese Heart: regular rate and rhythm Lungs: decreased breath sounds Airway: Mallampati scale class II Neurological: alert and oriented Last oral intake: >/= 8 hours ASA classification: III Emergent: no Anesthetic plan: proceed Anesthesia type and monitoring: general GIVS and standard monitoring Results Review: All pre-operative results and documents have been reviewed as part of the pre-operative evaluation. Informed Consent: The patient's anesthetic plan and its attendant risks and benefits were discussed with the patient/family/POA. Questions were solicited and answers provided to the satisfaction of the patient/family/POA.
--- NOTE | 2024-06-21 13:23 | P.HP_ITS ---
History of Present Illness History of Present Illness Consent: Risks, benefits, and alternatives have been discussed and questions answered. Patient agrees to proceed with procedure. 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 History of cystoscopy 2018 H/O umbilical hernia repair X2 S/P right rotator cuff repair 1978 H/O dilation of urethra H/O knee surgery Patella fracture. Small piece removed Family History Family History Father Hypertension Family history of heart disease in male family member before age 55 COPD (chronic obstructive pulmonary disease) Pulmonary embolism Grandparent Family history of lung cancer Mother Cancer Cerebrovascular accident COPD (chronic obstructive pulmonary disease) Sibling Diabetes mellitus COPD (chronic obstructive pulmonary disease) Sibling Scoliosis Social History Social History Smoking status: Never smoker Second hand tobacco smoke exposure: Yes Additional smoking assessment comments: DENIES ANY FORM OF TOBACCO USE Alcohol intake: never Substance use: current Substance use type: marijuana Other substance usage details: Daily use Last use: daily Do You Feel Safe in your Home?: Yes Lack of Transportation: No Lack of Food: Never True Current Housing: I Have Housing Concerned About Future Housing: No Difficulty Paying Gas/Electric Bills: No Difficulty Paying for Meds: No Currently Unemployed: No Education: Trade/Vocational Certificate Difficulty w/ Childcare or Family Care: No Living arrangements: with family Additional living arrangements comments: Spouse Occupation/Education: retired 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 Gender identity (if verbalized by the patient): Male Spiritual care concerns: No Agree to blood products: Yes Meds Home Medications and Allergies Home Medications ?Medication ?Instructions ?Recorded ?Confirmed ?Type rivaroxaban 20 mg tablet 20 mg PO QPM 03/26/21 06/21/24 History esomeprazole magnesium 40 mg 40 mg PO QPM 09/28/23 06/21/24 History capsule,delayed release sildenafil 100 mg tablet 100 mg PO PRN PRN sexual activity 09/28/23 06/12/24 History rosuvastatin 20 mg tablet 20 mg PO QPM #90 tabs 10/06/23 06/21/24 Rx dapagliflozin propanediol 10 mg 10 mg PO DAILY #90 tabs 12/30/23 06/21/24 Rx tablet (Farxiga) clopidogrel 75 mg tablet 75 mg PO DAILY #90 tabs 03/02/24 06/21/24 Rx metformin 500 mg tablet,extended 500 mg PO DAILY #90 tabs 04/05/24 06/21/24 Rx release 24 hr losartan 50 mg tablet 50 mg PO DAILY #90 tabs 05/14/24 06/21/24 Rx semaglutide 1 mg/dose (4 mg/3 mL) 1 mg (0.75 mL) subcut WEEKLY #3 mL 06/20/24 06/21/24 Rx subcutaneous pen injector (Ozempic) Allergies Allergy/AdvReac Type Severity Reaction Status Date / Time cat dander Allergy Unknown Other Verified 06/21/24 12:32 cyclobenzaprine (From AdvReac Severe Hallucinati Verified 06/21/24 12:32 Flexeril) ng NSAIDS (Non-Steroidal AdvReac Other Verified 06/21/24 12:32 Anti-Inflamma Vital Signs Vital Signs - 24 hr 06/21/24 12:34 Temperature 98.2 F Pulse Rate 87 Respiratory Rate 18 Blood Pressure 128/82 Pulse Oximetry 98 Oxygen Delivery Room Air Exam Const: General: comfortable and no acute distress HENMT: Face/Nose/Sinus: Normal nares present Eyes: General: appearance normal, both eyes and all related structures Neck: Neck: no JVD Resp: Auscultation: clear to auscultation bilaterally Cardio: Rate: regular rate Rhythm: regular rhythm GI: Inspection: non-distended GI Palp: Yes Soft to palpation Skin: General skin exam: normal color Neuro: General: gait normal Speech: normal speech Extrem: General: normal to inspection Psych: Mental Status: mental status grossly normal Assessment and Plan Assessment and plan (1) Positive colorectal cancer screening using Cologuard test: Code(s): R19.5 - Other fecal abnormalities Status: Acute Assessment and Plan: colonoscopy
[2024-06-21 13:40] VITALS: BP 95/60; PULSE 88; RESP 20; O2SAT 95
[2024-06-21 13:50] VITALS: BP 98/60; PULSE 86; RESP 18; O2SAT 98
[2024-06-21 14:00] VITALS: BP 102/70; PULSE 74; RESP 18; O2SAT 98
[2024-06-21 14:34] LABS: Glucose Point of Care 123 mg/dl (65-105)
== END 2024-06-21 14:13 | disposition home or self-care (01) ==
PROVIDERS: PCP Family Medicine; Visit Provider Internal Medicine Gastroenterology
PROC: 0DJD8ZZ Inspection of Lower Intestinal Tract, Via Natural or Artificial Opening Endoscopic (ICD-10-PCS; CPT 45378; principal; 2024-06-21 13:30)
DX: D12.2 Benign neoplasm of ascending colon (principal); K64.8 Other hemorrhoids; K57.30 Diverticulosis of large intestine without perforation or abscess without bleeding; I10 Essential (primary) hypertension; I25.10 Atherosclerotic heart disease of native coronary artery without angina pectoris; E78.00 Pure hypercholesterolemia, unspecified; I48.91 Unspecified atrial fibrillation; G47.30 Sleep apnea, unspecified; I25.2 Old myocardial infarction; F41.8 Other specified anxiety disorders; F12.90 Cannabis use, unspecified, uncomplicated; E66.9 Obesity, unspecified; Z68.34 Body mass index [BMI] 34.0-34.9, adult; Z79.01 Long term (current) use of anticoagulants; Z79.84 Long term (current) use of oral hypoglycemic drugs; Z79.02 Long term (current) use of antithrombotics/antiplatelets; Z79.85 Long-term (current) use of injectable non-insulin antidiabetic drugs; Z98.890 Other specified postprocedural states; Z95.5 Presence of coronary angioplasty implant and graft; Z87.19 Personal history of other diseases of the digestive system; Z86.79 Personal history of other diseases of the circulatory system; Z80.1 Family history of malignant neoplasm of trachea, bronchus and lung; Z82.49 Family history of ischemic heart disease and other diseases of the circulatory system
CPT/HCPCS: 45385; 82948; 88305; J2003; J2704; J7120

== ENCOUNTER 2024-10-26 08:19 | Outpatient (CLI) | payer MEDICARE, SELFPAY ==
--- OUTSIDE RECORDS SUMMARY | 2024-10-26 08:48 | XMS_ITS | Encounter Summary ---
Author Organization [facility] Address [address] [place] [address] Phone Care Team Providers Care Carpet Cleaner Name Role Phone Lui Vazquez MD Primary Care Provider + [phone] Jarrod Josue MD Unavailable [phone] Gautam Rajput MD Unavailable [phone] Lui Vazquez MD Primary Care Provider + [phone] Encounter Details Date Type Department Care Team (Late st Contact Info) Description 07/18/2021 Orders Only [facility] [phone] Scanning, Provider Social History Tobacco Use Types [...] as of this encounter Plan of Treatment Upcoming Encounters Date Type Department Care Team (Latest Contact Info) Description 11/07/2024 7:30 AM CDT Hospital Encounter [facility] Electrophysiology Lab [address] [place] [address] Farooq Menard MD [address] [place] [address] Paroxysmal atrial fibrillation (HCC) 11/07/2024 7:30 AM CDT - 11/07/2024 9:25 AM CDT Surgery [facility] Electrophysiology Lab [address] [place] [phone] Farooq Menard MD [address] [facility] [address] [place] [address] ABLATION ATRIAL FIBRILLATION (A-FIB) VIA PULMONARY VEIN ISOLATION [id number] documented as of this encounter Procedures Procedure Name Priority Date/Time Associated Diagnosis Comments SCAN - RADIOLOGY/IMAGING 07/18/2021 documented in this encounter Results * SCAN - RADIOLOGY/IMAGING (07/18/2021) Anatomical Region Laterality Modality Other us Provider Scanning Final Result documented in this encounter Visit Diagnoses Not on filedocumented in this encounter Care Teams Carpet Cleaner Relationship Specialty Start Date End Date Lui Vazquez MD PCP - General Family Medicine 07/08/18 10/24/24 Lui Vazquez MD [address] [place] [address] PCP - General Family Medicine 10/25/24 Jarrod Josue MD Consulting Physician Cardiology 03/01/20 [place] [address] [place] [address] Consulting Physician General Surgery 04/10/20 documented as of this encounter
--- OUTSIDE RECORDS SUMMARY | 2024-10-26 08:48 | XMS_ITS | Clinical Summary ---
Author Organization [facility] [address] [facility] [address] [facility] [address] [place] [address] Care Team Providers Care Bridge Ironworker Name Role Phone Jarrod Josue MD Unavailable [phone] Gautam Rajput MD Unavailable Lui Vazquez MD Primary Care Provider Allergies Active Allergy Reactions Criticality Noted Date Comments Metoprolol Fatigue Low 10/24/2012 Medications clopidogrel (PLAVIX) 75 mg tabletIndication s:Coronary artery disease involving [place] coronary artery of [place] heart without angina pectoris Take 1 tablet (75 mg total) by mouth daily 90 tablet [address] (NexIUM) 40 mg capsuleIndicatio ns:Stress Ulcer Prophylaxis Take 1 capsule (40 mg total) by mouth daily before breakfast 90 capsule 3 0 Active rosuvastatin (CRESTOR) 20 mg tablet Take 1 tablet (20 mg total) by mouth daily 90 tablet 3 0 Active metFORMIN XR (GLUCOPHAGE XR) 500 mg 24 hr tablet Take 1 tablet (500 mg total) by mouth daily with breakfast 30 tablet 1 Active Ozempic 1 mg/dose (4 mg/3 mL) pen injector injection 5 Active Farxiga 10 mg tablet Take 1 tablet (10 mg total) by mouth daily 5 Active losartan (COZAAR) 50 mg tablet Take 1 tablet (50 mg total) by mouth daily 5 Active sildenafiL (VIAGRA) 100 mg tabletIndication s:Erectile Dysfunction Take 1 tablet (100 mg total) by mouth daily as needed for erectile dysfunction 10 tablet 3 5 Active rivaroxaban (Xarelto) 20 mg tabletIndication s:Paroxysmal atrial fibrillation (HCC) TAKE 1 TABLET BY MOUTH EVERY DAY 90 tablet 5 Active Active Problems Problem Noted Date Diagnosed [...] CDT): -remains compliant on Xarelto therapy, asymptomatic -[id number] is 3 -recommend continued therapy for thromboprophylaxis Coronary artery disease invo lving [place] coronary artery of [place] heart without angina pectoris 09/05/2018 Paroxysmal atrial fibrillation 09/05/2018 Assessment & Plan (10/04/2024 11:17 AM CDT): Assessment & Plan (09/22/2022 12:29 PM CDT): [...] Encounters Date Type Department Care Team Description 10/09/2024 Telephone [facility] [address] [place] [phone] Keeley Ralph NP 10/04/2024 11:15 AM CDT Office Visit [facility] [address] [place] [phone] Keeley Ralph NP Cardiac arrhythmia, unspecified cardiac arrhythmia type (Primary Dx); Paroxysmal atrial fibrillation (HCC); Anticoagulation management encounter 10/02/2024 Telephone [facility] [address] [place] [phone] Keeley Ralph NP Appointment/Schedules (EH called out, need to reschedule) from Last 3 Months Surgical History Surgery [...] Sign Reading Time Taken Comments Blood Pressure 124/82 10/04/2024 10:48 AM CDT Pulse 74 10/04/2024 10:48 AM CDT Temperature 36 C (96.8 F) 04/19/2020 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 Respiratory Rate 18 04/19/2020 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 Oxygen Saturation 96% 06/13/2024 9:47 AM CDT Inhaled Oxygen Concentration - - Weight 108.4 kg (239 lb) 10/04/2024 10:48 AM CDT Height 177.8 cm (5' 10) 10/04/2024 10:48 AM CDT Body Mass Index 34.29 10/04/2024 10:48 AM CDT Plan of Treatment Upcoming Encounters Date Type Department Care Team (Latest Contact Info) Description 11/07/2024 7:30 AM CDT Hospital Encounter [facility] Electrophysiology Lab [address] [place] [phone] Farooq Menard MD [address] [address] Paroxysmal atrial fibrillation (HCC) 11/07/2024 7:30 AM CDT - 11/07/2024 9:25 AM CDT Surgery [facility] Electrophysiology Lab [address] [place] [phone] Farooq Menard MD [address] [address] ABLATION ATRIAL FIBRILLATION (A-FIB) VIA PULMONARY VEIN ISOLATION [address] Health Maintenance Due Date Last Done Comments Colon Cancer Screening-Colonoscopy 1960 Depression Screening 1958 Hepatitis C Screening 1958 Prostate Cancer Screening-PSA 1958 DTaP/Tdap/Td Vaccine (1 - Tdap) 1969 Hepatitis B Screening 1976 Pneumococcal vaccine 65+ (1 of 1 - PCV) 2008 Zoster Vaccine (1 of 2) 2008 Fall Risk Assessment 04/19/2021 04/19/2020 Well Visit 65+ 2023 Covid-19 Vaccine (4 - 2024-2 6 season) 2024 01/21/2021, 05/24/2020, 05/03/2020 Influenza Vaccine (#1) 2024 , 11/27/2022, 12/22/2021, Additional history exists Medical Devices Implanted Type Area Circulating Process Inspector Device Identifier Shelf Expiration Date Model / Serial / Lot [employer] [id number] System 6-12fr Mvp Venous Closure Vascade - [id number] - [id number] Implanted:Qty: 1 on 04/09/2020 by Jarrod Josue MD at [facility] [employer] 02/20/2022 800-612C-1 [id number] / [id number] / [id number] [employer] [id number] System 6-12fr Mvp Venous Closure Vascade - [id number] - [id number] Implanted:Qty: 1 on 04/09/2020 by Jarrod Josue MD at [facility] [employer] 02/20/2022 800-612C-1 0U / [id number] / [id number] [employer] [id number] Device Closure Vascade Od5 Fr Femoral Artery - [id number] - [id number] Implanted:Qty: 1 on 04/09/2020 by Jarrod Josue MD at [facility] [employer] 01/16/2022 [id number] [id number] / [id number] / [id number] [employer] [id number] System 6-12fr Mvp Venous Closure Vascade - [id number] - [id number] Implanted:Qty: 1 on 04/09/2020 by Jarrod Josue MD at [facility] [employer] 02/20/2022 800-612C-1 0U / [id number] / [id number] Procedures Procedure Name Priority Date/Time Associated Diagnosis Comments ECG 12-LEAD Routine 10/04/2024 11:00 AM CDT Cardiac arrhythmia, unspecified cardiac arrhythmia type from Last 3 Months Results * ECG 12 lead (10/04/2024 11:00 AM CDT) Keeley Ralph NP ECG ORDERABLES Marcy quiñones Result from Last 3 Months Insurance [facility] [place] [address] [facility] MEDICARE AD[facility]ANT[facility] Address: [facility] [address] [place] [address] Advance Directives For more information, please contact: [phone] * Full Code (Latest Code Status on File) Date Activated Date Inactivated Comments 04/17/2020 7:48 AM 04/19/2020 9:37 PM * Full Code Date Activated Date Inactivated Comments 04/09/2020 7:54 PM 04/10/2020 8:11 PM * Full Code Date Activated Date Inactivated Comments 03/01/2020 12:10 PM 03/02/2020 5:23 PM Care Teams Bridge Ironworker Relationship Specialty Start Date End Date Lui Vazquez MD [address] [place] [address] PCP - General Family Medicine 10/25/24 Jarrod Josue MD Consulting Physician Cardiology 03/01/20 [place] [address] [place] [address] Consulting Physician General Surgery 04/10/20
--- OUTSIDE RECORDS SUMMARY | 2024-10-26 08:48 | XMS_ITS | Encounter Summary ---
Author Organization [facility] Address [address] [place] [address] Care Team Providers Care Food Or Baggage Handling Rampman Name Role Phone Lui Vazquez MD Primary Care Provider + [phone] Jarrod Josue MD Unavailable [phone] Gautam Rajput MD Unavailable [phone] Lui Vazquez MD Primary Care Provider + [phone] Encounter Details Date Type Department Care Team (Late st Contact Info) Description 05/29/2024 Orders Only [facility] [address] [place] [address] Scanning, Provider Social History Tobacco Use Types [...] Description 11/07/2024 7:30 AM CDT Hospital Encounter [facility] Electrophysiology Lab [address] [place] [phone] Farooq Menard MD [address] [facility] [address], [place] [address] Paroxysmal atrial fibrillation (HCC) 11/07/2024 7:30 AM CDT - 11/07/2024 9:25 AM CDT Surgery [facility] Electrophysiology Lab [address] [place] [phone] Farooq Menard MD [address] [facility] [address] [place] [address] ABLATION ATRIAL FIBRILLATION (A-FIB) VIA PULMONARY VEIN ISOLATION [id number] documented as of this encounter Procedures Procedure Name Priority Date/Time Associated Diagnosis Comments SCAN - RADIOLOGY/IMAGING 05/29/2024 documented in this encounter Results * SCAN - RADIOLOGY/IMAGING (05/29/2024) Anatomical Region Laterality Modality Other us Provider Scanning Final Result documented in this encounter Visit Diagnoses Not on filedocumented in this encounter Care Teams Food Or Baggage Handling Rampman Relationship Specialty Start Date End Date Lui Vazquez MD PCP - General Family Medicine 07/08/18 10/24/24 Lui Vazquez MD [address] [place] [address] PCP - General Family Medicine 10/25/24 Jarrod Josue MD Consulting Physician Cardiology 03/01/20 [place] [address] [place] [address] Consulting Physician General Surgery 04/10/20 documented as of this encounter
[2024-10-26 09:10] LABS: Hematocrit 45.5 % (42.0-52.0); Hemoglobin 14.0 g/dL (14.0-18.0); Immature Granulocyte Percent A 0.3 % (0-0.5); Lymphocytes Absolute Auto 1.84 K/mm3 (0.9-3.2); Mean Corpuscular HGB Conc 30.8 g/dl (32-36); Mean Corpuscular Hemoglobin 26.2 pg (26-34); Mean Corpuscular Volume 85.2 fl (80-100); Nucleated Red Blood Cells Absolute Auto 0.000 K/mm3 (0.0-0.012); Nucleated Red Blood Cells Perc 0.0 % (0.0-0.2); Platelet Count Result 217 k/mm3 (150-375); Red Blood Count 5.34 M/mm3 (4.6-6.20); White Blood Count 6.7 K/mm3 (4.5-10.0)
[2024-10-26 09:29] LABS: Alanine Aminotransferase 14 U/L (6-50); Albumin Level 4.3 g/dL (3.5-5.1); Alkaline Phosphatase 56 U/L (38-126); Anion Gap 8 mmol/L (4-12); Aspartate Amino Transferase 24 U/L (17-59); Bilirubin,Total 0.5 mg/dL (0.2-1.3); Blood Urea Nitrogen 17 mg/dL (9-20); Calcium 9.3 mg/dL (8.4-10.2); Carbon Dioxide 27 mmol/L (22-30); Chloride 105 mmol/L (98-107); Estimated Glomerular Filt Rate > 60; Glucose 110 mg/dL (65-110); Potassium 4.7 mmol/L (3.4-5.0); Sodium 140 mmol/L (137-145); Total Protein 7.3 g/dL (6.3-8.2)
== END 2024-10-26 08:20 | disposition home or self-care (01) ==
PROVIDERS: PCP Family Medicine
DX: I49.9 Cardiac arrhythmia, unspecified (principal)
CPT/HCPCS: 36415; 80053; 85025